=== PATIENT | female | born 1960 | race Caucasian/White ===

== ENCOUNTER → 2017-10-26 16:10 | Outpatient (CLI) | payer OTHER, SELFPAY | PROVIDERS: Visit Provider Nurse Practitioner Women's Health | DX: Z12.4 Encounter for screening for malignant neoplasm of cervix (principal) ==

== ENCOUNTER 2018-01-06 11:30 | Day surgery (SDC) | payer OTHER, SELFPAY ==
[2018-01-06] VITALS (7 sets, daily range): BP systolic 107–130; BP diastolic 61–71; PULSE 62–71; RESP 16; TEMP 36.4–36.7; O2SAT 96–100; BMI 21.6
[2018-01-06] MEDS: HYDROcodone Bitartrate/Apap 5/325 Tablet PO (14:48)
== END 2018-01-06 14:52 | disposition home or self-care (01) ==
LOC: SDC 11:31 → AC 11:32
PROVIDERS: Family Provider Family Medicine; PCP Family Medicine; Visit Provider Orthopaedic Surgery
PROC: (CPT 64721; principal; 2018-01-06 12:45)
DX: G56.01 Carpal tunnel syndrome, right upper limb (principal); G43.909 Migraine, unspecified, not intractable, without status migrainosus; E06.9 Thyroiditis, unspecified; Z79.899 Other long term (current) drug therapy
CPT/HCPCS: 64721; J7120

== ENCOUNTER → 2018-02-01 11:33 | Outpatient (CLI) | payer OTHER, SELFPAY | PROVIDERS: Family Provider Family Medicine; PCP Family Medicine; Visit Provider Family Medicine | DX: E03.9 Hypothyroidism, unspecified (principal); Z12.11 Encounter for screening for malignant neoplasm of colon | CPT/HCPCS: 82274 ==

== ENCOUNTER → 2018-06-03 11:24 | Outpatient (CLI) | payer OTHER, SELFPAY ==
[2018-06-03 12:04] LABS: Hemoglobin A1c 5.5 % (4.2-6.3)
[2018-06-03 12:13] LABS: Thyroid Stim Hormone (TSH) 2.72 uIU/mL (0.358-3.74)
== END ==
PROVIDERS: Family Provider Family Medicine; PCP Family Medicine; Visit Provider Family Medicine
DX: Z13.9 Encounter for screening, unspecified (principal)
CPT/HCPCS: 36415; 83036; 84443

== ENCOUNTER → 2018-06-17 12:32 | Outpatient (CLI) | payer OTHER, SELFPAY ==
--- NOTE | 2018-06-17 12:44 | RAD_ITS ---
STUDY: X-RAY - LEFT FOOT CLINICAL: Female, 57 years old. Arthritis. Pain TECHNIQUE: 3 view(s) of the foot. COMPARISON: None. FINDINGS: Normal talus, calcaneus, and tarsal bones. Normal visualized subtalar, talonavicular, calcaneocuboid, tarsal and tarsometatarsal articulations. Normal metatarsi. There is mild degenerative arthrosis of the metatarsophalangeal joint of the hallux . Normal tibial and fibular sesamoid bones. Normal interphalangeal joint of the great toe. Normal phalanges of the great toe. Normal second through fifth metatarsophalangeal joints. Normal interphalangeal joints and phalanges of the lesser toes. The soft tissue structures are unremarkable. There is no demonstrated fracture. RAD/Foot min 3 Views IMPRESSION: Mild spurring at the first MTP joint. Electronically Signed: Braydon Koenig MD at 13:18 EDT , Service support ,
== END ==
PROVIDERS: Family Provider Family Medicine; PCP Family Medicine; Visit Provider Family Medicine
DX: M19.072 Primary osteoarthritis, left ankle and foot (principal)
CPT/HCPCS: 73630

== ENCOUNTER → 2018-11-04 07:27 | Outpatient (CLI) | payer OTHER, SELFPAY ==
--- NOTE | 2018-11-03 17:28 | BI_ITS ---
MAMMOGRAPHY - BILATERAL SCREENING REASON FOR EXAM: Female, 58 years old. Routine annual screening examination. PERTINENT HISTORY: Non-contributory. TECHNIQUE: Digital bilateral breast keagan (3D mammographic acquisition) in the CC and MLO projections. 2-D mediolateral oblique (MLO) and craniocaudad (CC) views of both breasts were obtained. CAD: Full Field Digital Mammography with Computer Added Detection was performed. COMPARISON: Comparison is made with prior examination dated July 16, 2016 and March 13, 2010. FINDINGS: Breast Composition: The breasts are heterogeneously dense, which may obscure small masses. There are no dominant masses or suspicious calcifications. No other significant abnormalities are identified. There has been no significant change since the prior study. BI/SCREEN MAMM (CAD) W/KEAGAN BILAT IMPRESSION: Stable bilateral screening mammogram. Yearly follow-up mammogram recommended. (A) ASSESSMENT CATEGORY: BIRADS Category 1: Negative. A letter regarding these results will be sent to the patient by the facility within 30 days. Approximately 10% of breast cancers are not detected by mammography. A normal mammogram should not delay biopsy of a clinically suspicious abnormality. [id number] Electronically Signed: Flavio Ruiz MD at 10:14 EST , Service support ,
== END ==
PROVIDERS: Family Provider Family Medicine; PCP Family Medicine; Referring Provider Nurse Practitioner Women's Health; Visit Provider Nurse Practitioner Women's Health
DX: Z12.31 Encounter for screening mammogram for malignant neoplasm of breast (principal)
CPT/HCPCS: 77063; 77067

== ENCOUNTER → 2019-06-22 11:22 | Outpatient (CLI) | payer OTHER, SELFPAY ==
[2018-01-06 11:46] VITALS: BMI 21.6
[2019-06-22 12:09] LABS: Hemoglobin A1c 5.5 % (4.2-6.3)
== END ==
LOC: LABSPEC 11:27 → LAB 11:29
PROVIDERS: Family Provider Family Medicine; PCP Family Medicine; Referring Provider Family Medicine; Visit Provider Family Medicine
DX: Z13.1 Encounter for screening for diabetes mellitus (principal)
CPT/HCPCS: 83036

== ENCOUNTER → 2020-03-07 13:40 | Outpatient (CLI) | payer OTHER, SELFPAY ==
[2018-01-06 11:46] VITALS: BMI 21.6
[2019-09-15 09:45] VITALS: BMI 21.6
[2020-03-07 15:19] LABS: Free T3 2.5 pg/mL (2.18-3.98); Thyroid Stim Hormone (TSH) 1.54 uIU/mL (0.358-3.74)
== END ==
PROVIDERS: Family Provider Family Medicine; PCP Family Medicine; Referring Provider Family Medicine; Visit Provider Family Medicine
DX: E03.9 Hypothyroidism, unspecified (principal)
CPT/HCPCS: 36415; 84436; 84443; 84481

== ENCOUNTER → 2021-07-10 13:12 | Outpatient (CLI) | payer OTHER, SELFPAY ==
[2021-07-15 16:55] LABS: HPV APTIMA, High Risk Negative (Negative)
== END ==
PROVIDERS: Referring Provider Nurse Practitioner Women's Health; Visit Provider Nurse Practitioner Women's Health
DX: Z12.4 Encounter for screening for malignant neoplasm of cervix (principal)
CPT/HCPCS: 87624; 88175; G0145

== ENCOUNTER 2021-09-11 06:08 | Day surgery (SDC) | payer OTHER, SELFPAY ==
[2021-09-11] VITALS (7 sets, daily range): BP systolic 105–119; BP diastolic 62–75; PULSE 67–74; RESP 16–18; TEMP 36.1–36.8; O2SAT 99–100; BMI 22.4
[2021-09-11] MEDS: Lactated Ringers 1,000 ML 15 ML IV (06:46)
--- NOTE | 2021-09-11 07:10 | PCM.HP.BLA ---
History and Physical Date of Admission: 09/11/21 HISTORY OF PRESENT ILLNESS: This is a 61-year-old with past medical history of hypothyroidism, migraines who arrives here for screening colonoscopy. She is in a good state of health with no complaints of abdominal pain, nausea, vomiting or diarrhea. She also denies any bleeding per rectum. She has no personal history or family history of colorectal cancer. All other 16 review of systems are negative except as per in positive mentioned HPI PAST MEDICAL HISTORY, PAST SURGICAL HISTORY, SOCIAL HISTORY, CURRENT MEDICATIONS, ALLERGIES, REVIEW OF SYSTEMS: Documented and reviewed PHYSICAL EXAMINATION: VITAL SIGNS: Height 66 inches, Blood pressure 119/74, pulse 74, respirations 18, temperature 99. GENERAL: The patient is alert and oriented x3. No acute distress at rest. Breathing easily without respiratory distress. HEENT: Head, normocephalic, atraumatic. Eyes: PERRLA, EOMI, sclerae are anicteric, conjunctivae without injection. Ears: Auditory acuity grossly intact bilaterally. Nose: Bilateral patent nares without tenderness or drainage. Throat: Pharynx clear without erythema or exudate. Tongue and uvula midline. Buccal mucosa pink and moist. NECK: Supple, without adenopathy, JVD, carotid bruit, masses or tenderness. CHEST: Symmetrical, nontender to palpation. AP diameter within normal limits. HEART: Regular rate and rhythm without murmurs, rubs or gallops appreciated at this time. LUNGS: Clear to auscultation bilaterally without wheezes, rales or rhonchi. ABDOMEN: Soft, nondistended. Normoactive bowel sounds x4 without tenderness. NEUROLOGIC: Cranial nerves II through XII grossly intact without any focal sensorimotor deficits noted. IMPRESSION: Screening colonoscopy PLAN: Patient was explained alternatives, risk, benefits including not withstanding bleeding, infection, sepsis, perforation, need for emergent surgery . She will have an ASA 1.
--- NOTE | 2021-09-11 07:47 | OP.COLON_ITS ---
Patient Name: Vibha Gloria Procedure Date: 09/11/2021 7:12 AM Date of : 1960 Age: 61 Procedure: Colonoscopy Indications: Screening for colorectal malignant neoplasm Providers: Eric Steiner DO Medicines: See the Anesthesia note for documentation of the administered medications Patient Profile: This is a 61 year old female. Refer to note in patient chart for documentation of history and physical. Last Colonoscopy: 10 years ago. Complications: No immediate complications. Procedure: Pre-Anesthesia Assessment: - Prior to the procedure, a History and Physical was performed, and patient medications and allergies were reviewed. The risks and benefits of the procedure and the sedation options and risks were discussed with the patient. All questions were answered and informed consent was obtained. Patient identification and proposed procedure were verified by the physician in the pre-procedure area. Mental Status Examination: alert and oriented. Airway Examination: normal oropharyngeal airway and neck mobility. Respiratory Examination: clear to auscultation. CV Examination: normal. Prophylactic Antibiotics: The patient does not require prophylactic antibiotics. Prior Anticoagulants: The patient has taken no previous anticoagulant or antiplatelet agents. ASA Grade Assessment: II - A patient with mild systemic disease. After reviewing the risks and benefits, the patient was deemed in satisfactory condition to undergo the procedure. The anesthesia plan was to use moderate sedation / analgesia (conscious sedation). Immediately prior to administration of medications, the patient was re-assessed for adequacy to receive sedatives. The heart rate, respiratory rate, oxygen saturations, blood pressure, adequacy of pulmonary ventilation, and response to care were monitored throughout the procedure. The physical status of the patient was re-assessed after the procedure. After I obtained informed consent, the scope was passed under direct vision. Throughout the procedure, the patient's blood pressure, pulse, and oxygen saturations were monitored continuously. The Colonoscope was introduced through the anus and advanced to the cecum, identified by appendiceal orifice and ileocecal valve. The colonoscopy was performed without difficulty. The patient tolerated the procedure well. The quality of the bowel preparation was good. Moderate Sedation: Moderate (conscious) sedation was personally administered by an anesthesia professional. The following parameters were monitored: oxygen saturation, heart rate, blood pressure, and response to care. Total physician intraservice time was 15 minutes. Scope In: 7:23:37 AM Scope Withdrawal Time 0 hours 10 minutes 12 seconds Scope Out: 7:39:00 AM Total Procedure Duration Time 0 hours 15 minutes 23 seconds Findings: The perianal and digital rectal examinations were normal. Two small-mouthed diverticula were found in the sigmoid colon. No additional abnormalities were found on retroflexion. Impression: - Diverticulosis in the sigmoid colon. - No specimens collected. Recommendation: - Discharge patient to home. - Resume previous diet. - Return to my office PRN. - Repeat colonoscopy in 10 years for screening purposes. - Continue present medications. Procedure Code(s): --- Professional --- 43695, Colonoscopy, flexible; diagnostic, including collection of specimen(s) by brushing or washing, when performed (separate procedure) CPT copyright 2017 [employer]. All rights reserved. The codes documented in this report are preliminary and upon worm picker review may be revised to meet current compliance requirements. Eric Steiner DO 09/11/2021 7:47:27 AM This report has been signed electronically. Number of Addenda: 1 Note Initiated On: 09/11/2021 7:12 AM Addendum Number: 1 Addendum Date: 06/03/2022 7:17:58 AM MAC was used instead of moderate sedation for the patient. Eric Steiner DO 06/03/2022 7:18:02 AM This report has been signed electronically.
== END 2021-09-11 08:42 ==
LOC: EN 06:10 → AC 06:11
PROVIDERS: PCP Family Medicine; Referring Provider Family Medicine; Visit Provider Internal Medicine Gastroenterology
PROC: 0DJD8ZZ Inspection of Lower Intestinal Tract, Via Natural or Artificial Opening Endoscopic (ICD-10-PCS; CPT 45378; principal; 2021-09-11 07:10)
DX: Z12.11 Encounter for screening for malignant neoplasm of colon (principal); K57.30 Diverticulosis of large intestine without perforation or abscess without bleeding; E03.9 Hypothyroidism, unspecified; Z79.899 Other long term (current) drug therapy
CPT/HCPCS: 45378; J2405

== ENCOUNTER 2022-03-26 14:47 | Outpatient (CLI) | payer OTHER, SELFPAY ==
--- NOTE | 2022-03-26 14:55 | RAD_ITS ---
STUDY: X-RAY - LUMBAR SPINE REASON FOR EXAM: Female, 61 years old. LEFT SIDED PARASPINAL PAIN TECHNIQUE: 5 view(s) of the lumbar spine were obtained. COMPARISON: December 30, 2015 lumbar spine x-ray FINDINGS: There is an exaggerated lumbar lordosis. There is no substantial scoliosis. There is a normal alignment of the vertebrae. There is multilevel osteophytosis. There is a shortened appearance of the pedicle at L5 and narrowing at L5-S1 of the neural foramen. Normal disc space heights. The soft tissue structures are unremarkable. RAD/L/S Spine Min 4 Views IMPRESSION: Degenerative change of the lumbar spine. Relatively stable when compared to prior study. Electronically Signed: Linnea Echols MD at 7:03 EDT ,
== END 2022-03-26 23:59 | disposition home or self-care (01) ==
LOC: RAD 14:49
PROVIDERS: PCP Family Medicine; Visit Provider Family Medicine
DX: M54.9 Dorsalgia, unspecified (principal)
CPT/HCPCS: 72110

== ENCOUNTER → 2022-06-25 | Outpatient (CLI) | payer OTHER, SELFPAY ==
[2022-06-25 15:18] LABS: T4 Free Direct 0.86 ng/dL (0.76-1.46)
== END | disposition home or self-care (01) ==
LOC: LABSPEC 14:52
PROVIDERS: PCP Family Medicine; Referring Provider Family Medicine; Visit Provider Family Medicine
DX: E03.2 Hypothyroidism due to medicaments and other exogenous substances (principal)
CPT/HCPCS: 84439; 84443

== ENCOUNTER → 2022-09-01 | Outpatient (CLI) | payer OTHER, SELFPAY | END | disposition home or self-care (01) | LOC: LAB 15:17 | PROVIDERS: PCP Family Medicine; Referring Provider Family Medicine; Visit Provider Family Medicine | DX: E03.2 Hypothyroidism due to medicaments and other exogenous substances (principal) | CPT/HCPCS: 36415; 84443 ==

== ENCOUNTER → 2022-11-23 | Outpatient (CLI) | payer OTHER, SELFPAY ==
[2022-11-23 16:21] LABS: Thyroid Stim Hormone (TSH) 3.45 uIU/mL (0.358-3.74)
== END | disposition home or self-care (01) ==
LOC: LAB 14:43
PROVIDERS: PCP Family Medicine; Referring Provider Family Medicine; Visit Provider Family Medicine
DX: E03.2 Hypothyroidism due to medicaments and other exogenous substances (principal)
CPT/HCPCS: 36415; 84443

== ENCOUNTER → 2023-05-18 | Outpatient (CLI) | payer OTHER, SELFPAY ==
--- NOTE | 2023-05-18 14:54 | BI_ITS ---
MAMMOGRAPHY - BILATERAL SCREENING REASON FOR EXAM: Female, 62 years old. Routine annual screening examination. PERTINENT HISTORY: Non-contributory. TECHNIQUE: Digital bilateral breast keagan (3D mammographic acquisition) in the CC and MLO projections. 2-D mediolateral oblique (MLO) and craniocaudad (CC) views of both breasts were obtained. CAD: Full Field Digital Mammography with Computer Added Detection was performed. COMPARISON: Screening mammogram from 11/03/2018, 07/16/2016. FINDINGS: Breast Composition: The breasts are heterogeneously dense, which may obscure small masses. There are no dominant masses or suspicious calcifications. No other significant abnormalities are identified. There has been no significant change since the prior study. BI/SCRN MAMM (CAD)W/KEAGAN BILAT IMPRESSION: Negative screening mammogram. Stable examination since 11/03/2018. Yearly followup mammogram recommended. (A) ASSESSMENT CATEGORY: BIRADS Category 1: Negative. A letter regarding these results will be sent to the patient by the facility within 30 days. Approximately 10% of breast cancers are not detected by mammography. A normal mammogram should not delay biopsy of a clinically suspicious abnormality. Electronically Signed: Dhruv Suazo DO at 9:36 EDT ,
== END | disposition home or self-care (01) ==
LOC: OPBI 14:52
PROVIDERS: PCP Family Medicine; Referring Provider Family Medicine; Visit Provider Family Medicine
DX: Z12.31 Encounter for screening mammogram for malignant neoplasm of breast (principal)
CPT/HCPCS: 77063; 77067

== ENCOUNTER → 2023-06-29 | Outpatient (CLI) | payer OTHER, SELFPAY ==
[2023-06-29 16:49] LABS: Thyroid Stim Hormone (TSH) 4.58 uIU/mL (0.358-3.74)
== END | disposition home or self-care (01) ==
LOC: LAB 15:32
PROVIDERS: PCP Family Medicine; Referring Provider Family Medicine; Visit Provider Family Medicine
DX: E03.2 Hypothyroidism due to medicaments and other exogenous substances (principal)
CPT/HCPCS: 84443

== ENCOUNTER → 2024-06-28 | Outpatient (CLI) | payer OTHER, SELFPAY | END | disposition home or self-care (01) | PROVIDERS: PCP Family Medicine; Referring Provider Family Medicine; Visit Provider Family Medicine | DX: E03.2 Hypothyroidism due to medicaments and other exogenous substances (principal) | CPT/HCPCS: 84443 ==

== ENCOUNTER → 2024-07-25 | Outpatient (CLI) | payer OTHER, SELFPAY ==
--- NOTE | 2024-07-25 08:39 | BI_ITS ---
MAMMOGRAPHY - BILATERAL SCREENING REASON FOR EXAM: Female, 64 years old. Routine annual screening examination. PERTINENT HISTORY: Non-contributory. TECHNIQUE: Digital bilateral breast keagan (3D mammographic acquisition) in the CC and MLO projections. 2-D mediolateral oblique (MLO) and craniocaudad (CC) views of both breasts were obtained. CAD: Full Field Digital Mammography with Computer Added Detection was performed. COMPARISON: Comparison is made with prior study May 18, 2023 and November 03, 2018. FINDINGS: Breast Composition: The breasts are heterogeneously dense, which may obscure small masses. There are no dominant masses or suspicious calcifications. No other significant abnormalities are identified. There has been no significant change since the prior study. BI/SCRN MAMM (CAD)W/KEAGAN BILAT IMPRESSION: Stable bilateral screening mammogram. Yearly follow-up mammogram recommended. (A) ASSESSMENT CATEGORY: BIRADS Category 1: Negative. A letter regarding these results will be sent to the patient by the facility within 30 days. Approximately 10% of breast cancers are not detected by mammography. A normal mammogram should not delay biopsy of a clinically suspicious abnormality. [id number] Electronically Signed: Flavio Ruiz MD at 11:32 EDT ,
--- OUTSIDE RECORDS SUMMARY | 2024-07-25 09:11 | XMS RPT_ITS | CCD ---
Author Organization [facility] Care Team Providers Care Book Sewer Name Role Phone Dianna KAPADIA MD, Frank A Primary Care Provider Leatha vailable Tanya Miranda Primary Care Provider [phone] Tanya Miranda MD Primary Care Provider TANYA MIRANDA Primary Care Unavailable TANYA MIRANDA Primary Care Unavailable REN BUSTAMANTE III Primary Care Unavailable Medications Current Medications Medication Drug Class(es) Dates Sig (Normalized) Sig (Original) cyclobenzaprine hydrochloride 10 mg oral tablet (2 sources) Muscle Relaxant Start: 03-28-2022 End: 04-07-2022 take 5 mg by mouth every twelve hours as needed cyclobenzaprine (FLEXERIL) 10 mg tablet Take 0.5 tablets by mouth twice daily as needed for muscle spasm for up to 10 days. 5 tablet 0 03/28/2022 04/07/2022 Active Comment on above: Take 0.5 tablets by mouth twice daily as needed for muscle spasm for up to 10 days. nitrofurantoin, macrocrystals 25 mg / nitrofurantoin, monohydrate 75 mg oral capsule (1 source) Nitrofuran Antibacterial Start: 11-09-2022 End: 11-16-2022 take 1 capsule by mouth twice daily nitrofurantoin monohydrate and macrocrystal (MACROBID) 100 mg capsule Indications: Urinary frequency Take 1 capsule by mouth twice daily for 7 days. 14 capsule 0 11/09/2022 11/16/2022 Active Comment on above: Take [address] [facility] twice daily for 7 days. Completed/Discontinued Medications Medication Drug Class(es) Dates Sig (Normalized) Sig (Original) acetaminophen 325 mg / guaiFENesin 200 mg / phenylephrine hydrochloride 5 mg oral tablet (3 sources) alpha-1 Adrenergic Agonist Start: 08-20-2017 Phenylephrine-Acetam inophen-GG (TYLENOL COLD HEAD CONGEST SEVR) 5-325-200 mg tab Indications: Viral URI with cough Take 1 Dose by mouth as directed. 30 tablet 0 08/20/2017 Active Comment on above: Take 1 Dose by mouth as directed. levothyroxine sodium 0.075 mg oral tablet (6 sources) l-Thyroxine Start: 05-30-2020 levothyroxine (SYNTHROID) 75 mcg tablet Indications: Postsurgical hypothyroidism 75 mcg every Wed-Wed-Wed. Take on empty stomach. 36 tablet 3 05/30/2020 Active Start: 05-30-2020 take 1 tablet by adri th once daily levothyroxine (SYNTHROID) 88 mcg tablet Indications: Postsurgical hypothyroidism TAKE 1 TABLET BY MOUTH ONCE DAILY ON WEDNESDAY, WEDNESDAY, WEDNESDAY AND WEDNESDAY 54 tablet 3 05/30/2020 Active Comment on above: 75 mcg every Wed-Wed -Wed. Take on empty stomach. TAKE 1 TABLET BY ADRI TH ONCE DAILY ON WEDNESDAY, WEDNESDAY, WEDNESDAY AND WEDNESDAY OMEGA3,5,6,7,9 NO.1/SALMON OIL (COMPLETE OMEGA ORAL) (3 sources) OMEGA3,5,6,7,9 NO.1/SALMON OIL (COMPLETE OMEGA ORAL) Take by mouth. 0 Active Comment on above: Take by mouth. SUMAtriptan 100 mg oral tablet (3 sources) Serotonin-1b and Serotonin-1d Receptor Agonist Start: 12-03-2020 SUMAtriptan (IMITREX) 100 mg tablet Indications: Migraine without status migrainosus, not intractable, unspecified migraine type Take 1 tablet by mouth as needed for Migraine Headache (see administra tion instructions). 27 tablet 3 12/03/2020 Active Comment on above: Take 1 tablet by adri th as needed for Migraine Headache (see administra tion instructions). Problems Active Problems Problem Classification Problem Date Documented Date Episodic/Chronic Complications of surgical procedures or medical care (3 sources) Postoperative hypothyroidism; Translations: [Postprocedural hypothyroidism] Onset: 06-26-2010 12-25-2010 Chronic Genitourinary symptoms and ill-defined conditions (2 sources) Increased frequency of urination; Translations: [Frequency of micturition] Episodic Headache; including migraine (3 sources) Migraine; Translations: [Migraine, unspecified, not intractable, without status migrainosus] Onset: 06-04-2016 06-04-2016 Chronic Nutritional deficiencies (3 sources) Vitamin D deficiency; Translations: [Vitamin D deficiency, unspecified] Onset: 10-21-2015 10-21-2015 Chronic Osteoarthritis (6 sources) Arthritis of joint of toe; Translations: [Primary osteoarthritis, unspecified ankle and foot] Onset: 06-16-2018 06-16-2018 Chronic Other ear and sense organ disorders (1 source) Impacted cerumen in left ear; Translations: [Impacted cerumen, left ear] Episodic Spondylosis; intervertebral disc disorders; other back problems (1 source) Spasm of back muscles; Translations: [Muscle spasm of back] Episodic Past or Other Problems Problem Classification Problem Date Documented Date Episodic/Chronic Cancer of cervix (3 sources) Low grade squamous intraepithelial lesion on cervical Papanicolaou smear; Translations: [Low grade squamous intraepithelial lesion on cytologic smear of cervix (LGSIL)] Onset: 11-22-2008 11-22-2008 Episodic Other female genital disorders (3 sources) Cervical intraepithelial neoplasia grade 1; Translations: [Mild cervical dysplasia] Onset: 12-24-2008 12-24-2008 Episodic Sexually transmitted infections (not HIV or hepatitis) (3 sources) Human papillomavirus deoxyribonucleic acid test positive, high risk on cervical specimen; Translations: [Cervical high risk human papillomavirus (HPV) DNA test positive] Onset: 12-25-2009 12-25-2009 Episodic Results Test Name Value Interpretation Reference Range Facil ity Bacteria Ur Culton 3 Bacteria identified Cx Nom (U) ORGANISM ID: 1 <10,000 CFU/ml Lactose positive gram negative bacilli Insignificant colony count. No further workup. Normal [facility] Comment on above: Performed By: #### 6 30-4 #### [facility] CLIA [id number] [address] [place] [address] [place] CNOVon 11-09-2022 CNOV Office Visit ([facility] ) VICTORINA GLORIA ([id number]) 1960 F Date Time Provider Department 11/09/22 7:30 PM MARLEEN LEON [facility] During your visit today, we recorded the following information about you: Temperature Pulse Respiration Blood pressure 96.9 degrees 80/minute 16/minute 126/74 Weight 68.5 kg Marleen Leon APRN.CNP 11/09/2022 7:43 PM Signed ASSESSMENT/PLAN: 1. Urinary frequency - ICD9: 788.41, ICD10: R35.0 (primary diagnosis) acute - UA positive for neda esterase, hematuria, and proteinuria - Send urine for culture - Begin treatment with Macrobid 100 mg BID for 7 days - Patient education for prevention given - UA DIP, URINE (POC) - URINE CULTURE - NITROFURANTOIN MONOHYDRATE AND MACROCRYSTAL 100 MG ORAL CAP 2. Gross hematuria - ICD9: 599.71, ICD10: R31.0 - UA DIP, URINE (POC) - URINE CULTURE - Follow-up with your PCP in 3-5 days if symptoms have not improved or sooner if symptoms worsen - Discussed red flags and need for immediate medical evaluation if any occur. - Discussed supportive care treatment with fluids, rest and analgesia. - Discussed expected course of illness Marleen Leon APRN.CNP [facility] PATIENT INFO BLADDER INFECTION OVERVIEW Bladder infections are one of the most common infections, causing symptoms of burning with urination and needing to urinate frequently. A bladder infection is a type of urinary tract infection (UTI). Bladder infections are more common is women than men. Most women have an uncomplicated bladder infection that is easily treated with a short course of antibiotics. In men, bladder infections may also affect the prostate gland, and a longer course of treatment may be needed. BLADDER INFECTION CAUSES The urinary tract includes the kidneys (which filter urine), ureters (the tube that carries urine from the kidneys to the bladder), the bladder (which stores urine), and urethra (the tube that carries urine out of the bladder). Bacteria do not normally live in these areas. However, bacteria normally live close to the urethra in women and men who are not circumcised. Bladder infections occur when bacteria travel up the urethra into the bladder. Factors that increase the risk of developing a bladder infection include: Vaginal sex Use of spermicides History of past bladder infections Diabetes In men, not being circumcised or having anal sex increase the risk of bladder infections. BLADDER INFECTION SYMPTOMS The typical symptoms of a bladder infection include: Pain or burning when urinating Frequent need to urinate Urgent need to urinate Blood in the urine Fever, back pain, nausea, or vomiting are not common symptoms of a bladder infection, but can occur in people with a kidney infection (pyelonephritis). If you have these symptoms, you should call your doctor or nurse immediately. Is it a bladder infection or something else? -- Burning with urination can also occur in people with vaginitis (eg, yeast infection) or urethritis (inflammation of the urethra). For this reason, it is important to call your healthcare provider before assuming you have a bladder infection. BLADDER INFECTION DIAGNOSIS Simple bladder infections are usually diagnosed based upon your symptoms alone. However, most patients, especially those who have bladder infection symptoms for the first time, should see a healthcare provider for urine testing. Urine culture -- A urine culture is a test that uses a sample of urine to try and grow bacteria in a laboratory. It usually requires about 48 hours to get results. However, a urine culture is not always required to diagnose a bladder infection. Urine culture is often recommended if: You have never had a bladder infection before You have symptoms that are not typical for bladder infection You have had resistant bladder infections before You have frequent bladder infections You do not begin to feel better within 24 to 48 hours after starting antibiotics You are BLADDER INFECTION TREATMENT Bladder infection -- In young, healthy adolescents and adults with a bladder infection, the usual treatment includes a three to seven day course of antibiotics. The typical drugs chosen are: trimethoprim-sulfamet hoxazole (Bactrim?), nitrofurantoin (Macrobid?), ciprofloxacin (Cipro?) or levofloxacin (Levaquin?). In men, the infection may involve your prostate gland and treatment is usually given for at least 7 days. Your symptoms should begin to resolve within one day after starting treatment. It is important to take the full course of antibiotics to completely eliminate the infection. If your symptoms persist for more than two or three days after starting treatment, call your healthcare provider. If needed, you can take a prescription medication that numbs the bladder and urethra (phen (more content not included)... Normal [facility] UA DIP, URINE (POC)on 2022 BILIRUBIN UA (POCT) Negative Negative [facility] CLARITY UA (POCT) Slightly Cloudy Cl [facility] COLOR UA (POCT) Yellow [facility] GLUCOSE UA (POCT) Negative Negative mg/dL [facility] HEMOGLOBIN/BLOOD UA (POCT) Large Abnormal Negative [facility] KETONE UA (POCT) Negative Negative [facility] LEUKOCYTES UA (POCT) Moderate Abnormal Negative [facility] NITRITE UA (POCT) Negative [facility] PH UA (POCT) 7.0 4.5 - 8.0 [facility] Protein Ql (U) 100 mg/dL Abnormal Negative mg/dL [facility] SPECIFIC GRAVITY UA (POCT) 1.020 1.005 - 1.030 [facility] UROBILINOGEN UA (POCT) 0.2 E.U./dL Normal E.U./dL [facility] CNOVon 08-27-2022 CNOV Office Visit ([facility]WSTR ) VICTORINA GLORIA ([id number]) 1960 F Date Time Provider Department 08/27/22 2:15 PM [facility] During your visit today, we recorded the following information about you: Temperature Pulse Respiration Blood pressure 97.8 degrees 81/minute 16/minute 128/80 Weight 67.2 kg Mary Rojo APRN.ELECTRICAL CONTINUITY TESTER 08/27/2022 2:42 PM Signed CC: Patient presents with: Ear Problem: Left ear feels plugged HPI: Victorina Gloria is a 62 year old female who presents to the office with complaint of ear symptoms for a few days. Symptoms are staying the same. Associated symptoms includes ear pressure . Denies headache, body aches, fever, nausea, vomiting , and diarrhea. Treatments tried include nothing so far. with no relief of symptoms. Sick contacts: unknown. History of asthma, frequent episodes of bronchitis, chronic bronchitis, bronchiectasis or COPD: No Smoker: No Seasonal/environmenta l allergies: No The ROS is otherwise negative. The patient's pmh, medications, allergies, and past visits are reviewed. PHYSICAL EXAM: BP 128/80 Pulse 81 Temp 36.6 ?C (97.8 ?F) (Tympanic) Resp 16 Wt 67.2 kg (148 lb 3.2 oz) LMP 10/14/2009 SpO2 99% BMI 23.56 kg/m? General appearance: alert, cooperative, pleasant, in no acute distress Head: Normocephalic Eyes: EOM's intact, conjunctiva pink and moist, no icterus, sclera white, non-injected Ears: Right ear: External ear/canal- partial impaction, TM - clear with good landmarks, what is visible. 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 Variants of migraine, not elsewhere classified, without mention of intractable migraine without mention of status migrainosus with menses Varicose veins of other sites PAST SURGICAL HISTORY Procedure Laterality Date CAUTERY CERVIX CRYOCAUTERY INITIAL/REPEAT 1987 done twice COLPOSCOPY CERVIX UPPER/ADJACENT VAGINA 1997,2006,2009 X 2; 2010 CONIZATION CERVIX W/WO [facility] RPR ELTRD EXC 11/22/2008 LEEP-Cervix LEFT WRIST CARPAL TUNNEL ONLY 06/11/2016 [facility] PAST SURGICAL HISTORY OF laser surgery in 1988 on Cx PAST SURGICAL HISTORY OF 1989 laser of biopsy in her 's THYROIDECTOMY TOTAL/COMPLETE 08/08/2010 benign thyroid nodules ALLERGIES Patient has no known allergies. MEDICATIONS SUMAtriptan (IMITREX) 100 mg tablet Take 1 tablet by mouth as needed for Migraine Headache (see administra tion instructions). levothyroxine (SYNTHROID) 88 mcg tablet TAKE 1 TABLET BY MOUTH ONCE DAILY ON WEDNESDAY, WEDNESDAY, WEDNESDAY AND WEDNESDAY OMEGA3,5,6,7,9 NO.1/SALMON OIL (COMPLETE OMEGA ORAL) Take by mouth. levothyroxine (SYNTHROID) 75 mcg tablet 75 mcg every Wed-Wed-Wed. Take on empty stomach. (Patient not taking: Reported on 08/27/2022) Phenylephrine-Acetami nophen-GG (TYLENOL COLD HEAD CONGEST SEVR) 5-325-200 mg tab Take 1 Dose by mouth as directed. (Patient not taking: Reported on 06/16/2018 ) FAMILY HISTORY Problem Relation Age of Onset None Mother None Father Diabetes Maternal Grandmother in 60's from [place] None Brother Coronary Artery Disease Brother [place] age 43 other (suicide) Brother 24 Social History Tobacco Use Smoking status: Never Smokeless tobacco: Never Substance Use Topics Alcohol use: Yes Comment: occasionally 6 per year Drug use: No ASSESSMENT/PLAN: 1. Impacted cerumen of left ear - ICD9: 380.4, ICD10: H61.22 - REMOVAL OF IMPACTED CERUMEN - INSTRUMENTATION Ears were flushed successfully both tympanic membrane brains are visible and within normal limits. Potential red flag symptoms discussed with the patient. Reviewed appropriate action plan to take if red flag symptoms occur. Patient agreeable to treatment plan. Mary Rojo APRN.LOI Benavides LPN 08/27/2022 2:46 PM Signed Ambulatory Ear Lavage Pre-treatment: Warm water Treatment: Both ears Equipment and Irrigation solution and Volume used: Single use syringe with single use irrigation tip Water Return flow appearance: Brown Patient tolerated procedure: yes Post-treatment: Post Irrigation Post-treatment: Ear Canal/Tympanic membrane assessed by HENRIQUE Rojo. Daisha Benavides LPN Allergies As of Date: 08/27/2022 (No Known Allergies) Date Reviewed: 08/27/2022 Reviewed by: Eri Herrera LPN - Fully Assessed Reason for Visit: Ear Problem [38] Cmt: Left ear feels plugged Primary Visit Diagnosis:Impacted cerumen of left ear [H61.22] Order(s): REMOVAL OF IMPACTED CERUMEN - INSTRUMENTATION [6921 (more content not included)... Normal [facility] CNOVon 03-28-2022 CNOV Office Visit ([facility] ) VICTORINA GLORIA ([id number]) 1960 F Date Time Provider Department 03/28/22 2:30 PM [facility] During your visit today, we recorded the following information about you: Temperature Pulse Respiration Blood pressure 97.8 degrees 85/minute 21/minute 132/68 Weight 65.3 kg Mary Rojo APRN.ELECTRICAL CONTINUITY TESTER 03/28/2022 2:38 PM Signed Subjective Patient came in with complaints of back spasms for about 3.5 weeks. Did have a week in there where she thought it was getting better. Said she gets them and usually they last a day or so. This time has been different. Did not have a mechanical injury that she knows of. denies any radiation of numbnenss of tingling. Denies difficulty urinating. denies any other symptoms. Spasm is on the left middle back. Patient ddi see her dr initially and had xrays done. Back Pain Review of Systems Constitutional: Negative. Musculoskeletal: Positive for back pain. Skin: Negative. Objective Physical Exam Constitutional: Appearance: Normal appearance. Pulmonary: Effort: Pulmonary effort is normal. Musculoskeletal: Arms: Comments: spasm is in this area. patient said she is a little tender in that area when palpated as well. Neurological: Mental Status: She is alert. PAST MEDICAL HISTORY Diagnosis Date - Abnormal Papanicolaou smear of vagina and vaginal HPV resultsof lgsil - Carpal tunnel syndrome, bilateral 03/05/2016 - Grave's disease 08/08/2010 S/P thyroidectomy, now on synthroid - Migraine - Mild dysplasia of cervix Laser treatment in 1989 Exact degree uncertain - Spondylosis of lumbar region without myelopathy or radiculopathy 01/02/2016 - Variants of migraine, not elsewhere classified, without mention of intractable migraine without mention of status migrainosus with menses - Varicose veins of other sites PAST SURGICAL HISTORY Procedure Laterality Date - CAUTERY CERVIX CRYOCAUTERY INITIAL/REPEAT 1987 done twice - COLPOSCOPY CERVIX UPPER/ADJACENT VAGINA 1997,2006,2009 X 2; 2010 - CONIZATION CERVIX W/WO [facility] RPR ELTRD EXC 11/22/2008 LEEP-Cervix - LEFT WRIST CARPAL TUNNEL ONLY 06/11/2016 [facility] - PAST SURGICAL HISTORY OF laser surgery in 1988 on Cx - PAST SURGICAL HISTORY OF 1989 laser of biopsy in her 20's - THYROIDECTOMY TOTAL/COMPLETE 08/08/2010 benign thyroid nodules ALLERGIES Patient has no known allergies. MEDICATIONS SUMAtriptan (IMITREX) 100 mg tablet Take 1 tablet by mouth as needed for Migraine Headache (see administra tion instructions). levothyroxine (SYNTHROID) 75 mcg tablet 75 mcg every Wed-Wed-Wed. Take on empty stomach. levothyroxine (SYNTHROID) 88 mcg tablet TAKE 1 TABLET BY MOUTH ONCE DAILY ON WEDNESDAY, WEDNESDAY, WEDNESDAY AND WEDNESDAY OMEGA3,5,6,7,9 NO.1/SALMON OIL (COMPLETE OMEGA ORAL) Take by mouth. cyclobenzaprine (FLEXERIL) 10 mg tablet Take 0.5 tablets by mouth twice daily as needed for muscle spasm for up to 10 days. Phenylephrine-Acetami nophen-GG (TYLENOL COLD HEAD CONGEST SEVR) 5-325-200 mg tab Take 1 Dose by mouth as directed. FAMILY HISTORY Problem Relation Age of Onset - None Mother - None Father - Diabetes Maternal Grandmother in 60's from [place] - None Brother - Coronary Artery Disease Brother [place] age 43 - other (suicide) Brother 24 Social History Tobacco Use - Smoking status: Never Smoker - Smokeless tobacco: Never Used Substance Use Topics - Alcohol use: Yes Comment: occasionally 6 per year - Drug use: No ASSESSMENT/PLAN: 1. Back spasm - ICD9: 724.8, ICD10: M62.830 Low dose flexeril prescribed. Educated about medication and drowsiness side effect. patient will follow up if symptoms continue. Patient was okay with this care plan. Mary Rojo APRN.LOI Rojo APRN.LOI 03/28/2022 2:40 PM Signed Addended by: MARY ROJO on: 03/28/2022 02:40 PM Modules accepted: Orders Referring Provider: SELF [200] Allergies As of Date: 03/28/2022 (No Known Allergies) Date Reviewed: 03/28/2022 Reviewed by: Eulalia Galeana MA - Fully Assessed Reason for Visit: Back Pain [12] Cmt: back spasms x 3.5 weeks Primary Visit Diagnosis:Back spasm [M62.830] Order(s):cyclobenzapr ine (FLEXERIL) 10 mg tabletTake 0.5 tablets by mouth twice daily as needed for muscle spasm for up to 10 days.Disp: 5 tabletRfl: 0 Prescriptions as of 03/28/2022 - cyclobenzaprine (FLEXERIL) 10 mg tablet Take 0.5 tablets by mouth twice daily as needed for muscle spasm for up to 10 days. - SUMAtriptan (IMITREX) 100 mg tablet Take 1 tablet by mouth as needed for Migraine Headache (see administra tion instructions). - levothyroxine (SYNTHROID) 75 mcg tablet 75 mcg every Wed-Wed-Wed. Take on empty stomach. - levothyroxine (SYNTHROID) 88 mcg tablet TAKE 1 TABLET BY MOUTH ONCE DAILY ON WEDNESDAY, WEDNESDAY, WEDNESDAY AND WEDNESDAY - Phenylephrine-Acetami nophen-GG (TYLENOL (more content not included)... Normal [facility] Vital Signs Date Time Vital Sign Value Performing Clinician Delmis garrison 11-09-2022 19:14-0500 Body temperature 96.91 [degF] Marleen Leon APRN.[facility] Work Phone: [facility] 11-09-2022 19:14-0500 Body weight 68.49 kg Marleen Leon APRN.[facility] [facility] Work Phone: [facility] 11-09-2022 19:14-0500 Diastolic blood pressure 74 mm[Hg] Marlene Leon APRN.[facility] Work Phone: [facility] 11-09-2022 19:14-0500 Heart rate 80 /min Marleen Leon APRN.[facility] Work Phone: [facility] 11-09-2022 19:14-0500 Respiratory rate 16 /min Marleen Leon APRN.[facility] Work Phone: [facility] 11-09-2022 19:14-0500 SaO2% (BldA) [Mass fraction] 98 % Marleen Leon APRN.ELECTRICAL CONTINUITY TESTER Work Phone: [facility] 11-09-2022 19:14-0500 Systolic blood pressure 126 mm[Hg] Marleen Maldonado-Thai ENERGY SCHEDULER.ELECTRICAL CONTINUITY TESTER Work Phone: [facility] 08-27-2022 14:19-0500 Body temperature 97.81 [degF] Mary Rojo APRN.ELECTRICAL CONTINUITY TESTER Work Phone: [facility] 08-27-2022 14:19-0500 Body weight 67.22 kg Mary Rojo APRN.ELECTRICAL CONTINUITY TESTER Work Phone: [facility] 08-27-2022 14:19-0500 Diastolic blood pressure 80 mm[Hg] Mary Rojo APRN.ELECTRICAL CONTINUITY TESTER Work Phone: [facility] 08-27-2022 14:19-0500 Heart rate 81 /min Mary Rojo APRN.ELECTRICAL CONTINUITY TESTER Work Phone: [facility] 08-27-2022 14:19-0500 Respiratory rate 16 /min Mary Rojo APRN.ELECTRICAL CONTINUITY TESTER Work Phone: [facility] 08-27-2022 14:19-0500 SaO2% (BldA) [Mass fraction] 99 % Mary Rojo APRN.ELECTRICAL CONTINUITY TESTER Work Phone: [facility] 08-27-2022 14:19-0500 Systolic blood pressure 128 mm[Hg] Mary Rojo APRN.ELECTRICAL CONTINUITY TESTER Work Phone: [facility] 03-28-2022 14:26-0400 Body temperature 97.81 [degF] Mary Rojo APRN.ELECTRICAL CONTINUITY TESTER Work Phone: [facility] 03-28-2022 14:26-0400 Body weight 65.32 kg Mary Rojo APRN.ELECTRICAL CONTINUITY TESTER Work Phone: [facility] 03-28-2022 14:26-0400 Diastolic blood pressure 68 mm[Hg] Mary Rojo APRN.ELECTRICAL CONTINUITY TESTER Work Phone: [facility] 03-28-2022 14:26-0400 Heart rate 85 /min Mary Rojo APRN.ELECTRICAL CONTINUITY TESTER Work Phone: [facility] 03-28-2022 14:26-0400 Respiratory rate 21 /min Mary Rojo APRN.ELECTRICAL CONTINUITY TESTER Work Phone: [facility] 03-28-2022 14:26-0400 SaO2% (BldA) [Mass fraction] 98 % Mary Rojo APRN.ELECTRICAL CONTINUITY TESTER Work Phone: [facility] 03-28-2022 14:26-0400 Systolic blood pressure 132 mm[Hg] Mary Rojo APRN.ELECTRICAL CONTINUITY TESTER Work Phone: [facility] Encounters Encounter Date Encounter Type Care Provider Facility Start: 11-09-2022 End: 11-09-2022 [facility] Start: 11-09-2022 End: 11-09-2022 Patient encounter procedure Marleen Leon APRN.ELECTRICAL CONTINUITY TESTER Work Phone: [facility] Comment on above: Urinary frequency (P rimary Dx); Gross hematuria Start: 08-27-2022 End: 08-27-2022 ambulatory TANYA Flor MOLATESHA Facility:[facility] Start: 08-27-2022 End: 08-27-2022 Patient encounter procedure Mary Rojo APRN.ELECTRICAL CONTINUITY TESTER Work Phone: [facility] Comment on above: Impacted cerumen of left ear (Primary Dx) Start: 03-28-2022 End: 03-28-2022 ambulatory REN A CEBUL III Facility:[facility] Start: 03-28-2022 End: 03-28-2022 Patient encounter procedure Mary Rojo APRN.ELECTRICAL CONTINUITY TESTER Work Phone: [facility] Comment on above: Back spasm (Primary Dx) Procedures Date Procedure Procedure Detail Performing Clinician Start: 11-09-2022 Urnls dip stick/tabl et rgnt auto w/o microscopy Marleen Leon APRN.ELECTRICAL CONTINUITY TESTER Work Phone: Start: 02-01-2018 Colonoscopy Mary Rojo APRN.ELECTRICAL CONTINUITY TESTER Work Phone: Start: 06-14-2017 Adult depression scr eening assessment Mary Rojo APRN.LOI Work Phone: Start: 07-16-2016 Mammography Mary Francis PERERA Work Phone: Plan of Treatment Date Care Activity Detail Author Start: 06-21-2024 LIPID SCREEN LIPID SCREEN [facility] Start: 10-26-2022 HPV TESTING HPV TESTING [facility] Start: 10-26-2022 PAP TESTING PAP TESTING [facility] Start: 09-27-2022 DEPRESSION ASSESSMENT DEPRESSION ASS ESSMENT [facility] Start: 06-22-2022 DIABETES SCREEN DIABETES SCREEN [facility] Start: 05-28-2022 Influenza vaccination INFLUENZA (#1) [facility] Start: 04-22-2022 Urine microalbumin profile DTAP,TDAP,TD (2 - Td or Tdap) [facility] Start: 09-27-2021 DEPRESSION ASSESSMENT DEPRESSION ASS ESSMENT [facility] Start: 05-30-2021 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 ELLE DISEASE VISIT ANNUAL PCP TEAM CHRONIC DISEASE VISIT [facility] Start: 04-11-2021 COVID-19 VACCINE (3 - Booster for Moderna series) COVID-19 VACCINE (3 - Booster for Moderna series) [facility] Start: 01-07-2021 COVID-19 VACCINE (3 - Booster for Moderna series) COVID-19 VACCINE (3 - Booster for Moderna series) [facility] Start: 02-01-2019 Colonoscopy COLONOSCOPY [facility] Start: 02-01-2019 COLORECTAL CANCER SCREENING COLORECTAL CANCER SCREENING [facility] Start: 06-14-2018 Adult depression screening assessment DEPRESSION SCREENING [facility] Start: 07-16-2017 Mammography MAMMOGRAM [facility] Start: 2011 SHINGRIX VACCINE (1 of 2) NICK GRIX VACCINE (1 of 2) [facility] Start: 2006 COLOGUARD (FIT-DNA) COLOGUARD (FIT-D NA) [facility] Start: [address] COLONOGRAPHY [facility] Start: 2006 FECAL OCCULT BLOOD FECAL OCCULT BLOO D [facility] Start: 2006 SIGMOIDOSCOPY SIGMOIDOSCOPY [facility] Start: 1979 HEPATITIS C SCREENING HEPATITIS C SC PRISCILLA [facility] Start: 1979 HIV SCREENING HIV SCREENING [facility] Bacteria identified in Urine by Culture URINE CULTURE Microbiology Routine Urinary frequency Gross hematuria 11/09/2022 7:48 PM EST [facility] Work Phone: Removal impacted cer umen instrumentation unilat REMOVAL OF IMPACTED CERUMEN - INSTRUMENTATION Procedures Routine Impacted cerumen of left ear Ordered: 08/27/2022 [facility] Work Phone: Comment on above: Ordered: 08/27/2022 Immunizations Immunization Date Immunization Notes Care Provider Rene su 04-22-2012 tetanus toxoid, redu cristiano diphtheria toxoid, and acellular pertussis vaccine, adsorbed Mary Francis ENERGY SCHEDULER.[employer] Work Phone: [facility] Work Phone: 12-24-1992 hepatitis B immune globulin Mary James ENERGY SCHEDULER.[employer] Work Phone: [facility] Work Phone: 06-26-1992 hepatitis B immune globulin Mary Francis ENERGY SCHEDULER.ELECTRICAL CONTINUITY TESTER Work Phone: [facility] Work Phone: 01-25-1992 hepatitis B immune globulin Mary Francis ENERGY SCHEDULER.[employer] Work Phone: [facility] Work Phone: Payers Date Payer Category Payer Private Health Insurance AENA A [facility] [id number] 2022-Present [phone] [address] [place] [address] PPO [id number] 2022 Private Health Insurance [id number] 2019 Unknown MMO MMO TPA [id number] 2019-Present [address] [place] [address] PPO [id number] 2019 Unknown MMO MMO TPA [id number] 2019-Present [address] [place] [address] PPO [id number] 2019 Unknown [id number] Social History Date Type Detail Facility Start: 06-28-2012 Tobacco smoking status NHIS Never smoked tobacco [facility] Start: 03-28-2022 End: 11-09-2022 Alcohol intake Current drinker of alcohol (finding) [facility] Start: 06-28-2012 History SDOH Alcohol Comment occasionally 6 per year [facility] Start: 1960 Sex Assigned At Not on file [facility] Start: 03-18-2022 End: 08-27-2022 Exposure to SARS-CoV-2 (event) Not sure [facility] Start: 06-28-2012 Tobacco use and exposure Smokeless tobacco non-user [facility] Work Phone: Clinical Notes 03-05-2016 to 11-09-2022 Marleen Leon APRN.LOI - 11/09/2022 7:43 PM ESTPatient Emmy Benavides LAUNDRY SUPERVISOR - 08/27/2022 2:46 PM Kimberley Rojo APRN.ELECTRICAL CONTINUITY TESTER - 08/27/2022 2:24 PM EST Note Date & Type Note Facility 11-09-2022 Note HNO ID: [id number] Author: Marleen Leon APRN.ELECTRICAL CONTINUITY TESTER Service: ? Author Type: Nurse Practitioner Type: Progress Notes Filed: 11/09/2022 8:23 PM Note Text: Subjective HPI Victorina Gloria is a 62 year old female who presents with 2 hours of urinary frequency and dysuria, seeing light blood in her urine. She has not had a fever. She took ibuprofen at home for her symptoms. She denies fever, back pain or abdominal pain. Review of Systems Constitutional: Negative for chills and fever. Respiratory: Negative. Cardiovascular: Negative. Gastrointestinal: Negative for nausea and vomiting. Genitourinary: Positive for dysuria, frequency and hematuria. Musculoskeletal: Negative for back pain. BP 126/74 Pulse 80 Temp 36.1 ?C (96.9 ?F) Resp 16 Wt 68.5 kg (151 lb) LMP 10/14/2009 SpO2 98% BMI 24.01 kg/m? 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/02/2016 Variants of migraine, not elsewhere classified, without mention of intractable migraine without mention of status migrainosus with menses Varicose veins of other sites PAST SURGICAL HISTORY Procedure Laterality Date CAUTERY CERVIX CRYOCAUTERY INITIAL/REPEAT 1987 done twice COLPOSCOPY CERVIX UPPER/ADJACENT VAGINA 1997,2006,2009 X 2; 2010 CONIZATION CERVIX W/WO DANDC RPR ELTRD EXC 11/22/2008 LEEP-Cervix LEFT WRIST CARPAL TUNNEL ONLY 06/11/2016 [facility] PAST SURGICAL HISTORY OF laser surgery in 1988 on Cx PAST SURGICAL HISTORY OF 1989 laser of biopsy in her 's THYROIDECTOMY TOTAL/COMPLETE 08/08/2010 benign thyroid nodules ALLERGIES Patient has no known allergies. MEDICATIONS SUMAtriptan (IMITREX) 100 mg tablet Take 1 tablet by mouth as needed for Migraine Headache (see administra tion instructions). levothyroxine (SYNTHROID) 88 mcg tablet TAKE 1 TABLET BY MOUTH ONCE DAILY ON WEDNESDAY, WEDNESDAY, WEDNESDAY AND WEDNESDAY OMEGA3,5,6,7,9 NO.1/SALMON OIL (COMPLETE OMEGA ORAL) Take by mouth. nitrofurantoin monohydrate and macrocrystal (MACROBID) 100 mg capsule Take 1 capsule by mouth twice daily for 7 days. levothyroxine (SYNTHROID) 75 mcg tablet 75 mcg every Wed-Wed-Wed. Take on empty stomach. (Patient not taking: Reported on 08/27/2022) Aathreqymwzca-Qjtuxjrsicmdw-OV (TYLENOL COLD HEAD CONGEST SEVR) 5-325-200 mg tab Take 1 Dose by mouth as directed. (Patient not taking: Reported on 06/16/2018 ) FAMILY HISTORY Problem Relation Age of Onset None Mother None Father Diabetes Maternal Grandmother in 60's from [place] None Brother Coronary Artery Disease Brother [place] age 43 other (suicide) Brother 24 Social History Tobacco Use Smoking status: Never Smokeless tobacco: Never Substance Use Topics Alcohol use: Yes Comment: occasionally 6 per year Drug use: No Objective Physical Exam Vitals and nursing note reviewed. Constitutional: General: She is not in acute distress. Appearance: Normal appearance. She is not toxic-appearing. Cardiovascular: Rate and Rhythm: Normal rate and regular rhythm. Heart sounds: Normal heart sounds. Pulmonary: Effort: Pulmonary effort is normal. No respiratory distress. Breath sounds: Normal breath sounds. No wheezing or rales. Abdominal: General: There is no distension. Palpations: Abdomen is soft. There is no mass. Tenderness: There is no abdominal tenderness. There is no right CVA tenderness, left CVA tenderness or guarding. Skin: General: Skin is warm and dry. Neurological: Mental Status: She is alert. ASSESSMENT/PLAN: 1. Urinary frequency - ICD9: 788.41, ICD10: R35.0 (primary diagnosis) acute - UA positive for neda esterase, hematuria, and proteinuria - Send urine for culture - Begin treatment with Macrobid 100 mg BID for 7 days - Patient education for prevention given - UA DIP, URINE (POC) - URINE CULTURE - NITROFURANTOIN MONOHYDRATE AND MACROCRYSTAL 100 MG ORAL CAP 2. Gross hematuria - ICD9: 599.71, ICD10: R31.0 - UA DIP, URINE (POC) - URINE CULTURE - Follow-up with your PCP in 3-5 days if symptoms have not improved or sooner if symptoms worsen - Discussed red flags and need for immediate medical evaluation if any occur. - Discussed supportive care treatment with fluids, rest and analgesia. - Discussed expected course of illness Marleen Leon APRN.[facility] 11-09-2022 History of Presen t illness Narrative Subjective HPI Victorina Gloria is a 62 year old female who presents with 2 hours of urinary frequency and dysuria, seeing light blood in her urine. She has not had a fever. She took ibuprofen at home for her symptoms. She denies fever, back pain or abdominal pain. Review of Systems Constitutional: Negative for chills and fever. Respiratory: Negative. Cardiovascular: Negative. Gastrointestinal: Negative for nausea and vomiting. Genitourinary: Positive for dysuria, frequency and hematuria. Musculoskeletal: Negative for back pain. BP 126/74 Pulse 80 Temp 36.1 C (96.9 F) Resp 16 Wt 68.5 kg (151 lb) LMP 10/14/2009 SpO2 98% BMI 24.01 kg/m 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/02/2016 Variants of migraine, not elsewhere classified, without mention of intractable migraine without mention of status migrainosus with menses Varicose veins of other sites PAST SURGICAL HISTORY Procedure Laterality Date CAUTERY CERVIX CRYOCAUTERY INITIAL/REPEAT 1987 done twice COLPOSCOPY CERVIX UPPER/ADJACENT VAGINA 1997,2006,2009 X 2; 2010 CONIZATION CERVIX W/WO D&C RPR ELTRD EXC 11/22/2008 LEEP-Cervix LEFT WRIST CARPAL TUNNEL ONLY 06/11/2016 [facility] PAST SURGICAL HISTORY OF laser surgery in 1988 on Cx PAST SURGICAL HISTORY OF 1989 laser of biopsy in her 's THYROIDECTOMY TOTAL/COMPLETE 08/08/2010 benign thyroid nodules ALLERGIES Patient has no known allergies. MEDICATIONS SUMAtriptan (IMITREX) 100 mg tablet Take 1 tablet by mouth as needed for Migraine Headache (see administra tion instructions). levothyroxine (SYNTHROID) 88 mcg tablet TAKE 1 TABLET BY MOUTH ONCE DAILY ON WEDNESDAY, WEDNESDAY, WEDNESDAY AND WEDNESDAY OMEGA3,5,6,7,9 NO.1/SALMON OIL (COMPLETE OMEGA ORAL) Take by mouth. nitrofurantoin monohydrate and macrocrystal (MACROBID) 100 mg capsule Take 1 capsule by mouth twice daily for 7 days. levothyroxine (SYNTHROID) 75 mcg tablet 75 mcg every Wed-Wed-Wed. Take on empty stomach. (Patient not taking: Reported on 08/27/2022) Ornxqmxixfagn-Loyetyexpxtgz-GV (TYLENOL COLD HEAD CONGEST SEVR) 5-325-200 mg tab Take 1 Dose by mouth as directed. (Patient not taking: Reported on 06/16/2018 ) FAMILY HISTORY Problem Relation Age of Onset None Mother None Father Diabetes Maternal Grandmother in 60's from [place] None Brother Coronary Artery Disease Brother [place] age 43 other (suicide) Brother 24 Social History Tobacco Use Smoking status: Never Smokeless tobacco: Never Substance Use Topics Alcohol use: Yes Comment: occasionally 6 per year Drug use: No Objective Physical Exam Vitals and nursing note reviewed. Constitutional: General: She is not in acute distress. Appearance: Normal appearance. She is not toxic-appearing. Cardiovascular: Rate and Rhythm: Normal rate and regular rhythm. Heart sounds: Normal heart sounds. Pulmonary: Effort: Pulmonary effort is normal. No respiratory distress. Breath sounds: Normal breath sounds. No wheezing or rales. Abdominal: General: There is no distension. Palpations: Abdomen is soft. There is no mass. Tenderness: There is no abdominal tenderness. There is no right CVA tenderness, left CVA tenderness or guarding. Skin: General: Skin is warm and dry. Neurological: Mental Status: She is alert. ASSESSMENT/PLAN: 1. Urinary frequency - ICD9: 788.41, ICD10: R35.0 (primary diagnosis) acute - UA positive for neda esterase, hematuria, and proteinuria - Send urine for culture - Begin treatment with Macrobid 100 mg BID for 7 days - Patient education for prevention given - UA DIP, URINE (POC) - URINE CULTURE - NITROFURANTOIN MONOHYDRATE & MACROCRYSTAL 100 MG ORAL CAP 2. Gross hematuria - ICD9: 599.71, ICD10: R31.0 - UA DIP, URINE (POC) - URINE CULTURE - Follow-up with your PCP in 3-5 days if symptoms have not improved or sooner if symptoms worsen - Discussed red flags and need for immediate medical evaluation if any occur. - Discussed supportive care treatment with fluids, rest and analgesia. - Discussed expected course of illness Marleen Leon APRN.CNP documented in this encounter [facility] 11-09-2022 Instructions Marleen Leon APRN.CNP - 11/09/2022 7:42 PM EST ASSESSMENT/PLAN: 1. Urinary frequency - ICD9: 788.41, ICD10: R35.0 (primary diagnosis) acute - UA positive for neda esterase, hematuria, and proteinuria - Send urine for culture - Begin treatment with Macrobid 100 mg BID for 7 days - Patient education for prevention given - UA DIP, URINE (POC) - URINE CULTURE - NITROFURANTOIN MONOHYDRATE & MACROCRYSTAL 100 MG ORAL CAP 2. Gross hematuria - ICD9: 599.71, ICD10: R31.0 - UA DIP, URINE (POC) - URINE CULTURE - Follow-up with your PCP in 3-5 days if symptoms have not improved or sooner if symptoms worsen - Discussed red flags and need for immediate medical evaluation if any occur. - Discussed supportive care treatment with fluids, rest and analgesia. - Discussed expected course of illness Marleen Leon APRN.ELECTRICAL CONTINUITY TESTER [facility] PATIENT INFO BLADDER INFECTION OVERVIEW Bladder infections are one of the most common infections, causing symptoms of burning with urination and needing to urinate frequently. A bladder infection is a type of urinary tract infection (UTI). Bladder infections are more common is women than men. Most women have an uncomplicated bladder infection that is easily treated with a short course of antibiotics. In men, bladder infections may also affect the prostate gland, and a longer course of treatment may be needed. BLADDER INFECTION CAUSES The urinary tract includes the kidneys (which filter urine), ureters (the tube that carries urine from the kidneys to the bladder), the bladder (which stores urine), and urethra (the tube that carries urine out of the bladder). Bacteria do not normally live in these areas. However, bacteria normally live close to the urethra in women and men who are not circumcised. Bladder infections occur when bacteria travel up the urethra into the bladder. Factors that increase the risk of developing a bladder infection include: Vaginal sex Use of spermicides History of past bladder infections Diabetes In men, not being circumcised or having anal sex increase the risk of bladder infections. BLADDER INFECTION SYMPTOMS The typical symptoms of a bladder infection include: Pain or burning when urinating Frequent need to urinate Urgent need to urinate Blood in the urine Fever, back pain, nausea, or vomiting are not common symptoms of a bladder infection, but can occur in people with a kidney infection (pyelonephritis). If you have these symptoms, you should call your doctor or nurse immediately. Is it a bladder infection or something else? -- Burning with urination can also occur in people with vaginitis (eg, yeast infection) or urethritis (inflammation of the urethra). For this reason, it is important to call your healthcare provider before assuming you have a bladder infection. BLADDER INFECTION DIAGNOSIS Simple bladder infections are usually diagnosed based upon your symptoms alone. However, most patients, especially those who have bladder infection symptoms for the first time, should see a healthcare provider for urine testing. Urine culture -- A urine culture is a test that uses a sample of urine to try and grow bacteria in a laboratory. It usually requires about 48 hours to get results. However, a urine culture is not always required to diagnose a bladder infection. Urine culture is often recommended if: You have never had a bladder infection before You have symptoms that are not typical for bladder infection You have had resistant bladder infections before You have frequent bladder infections You do not begin to feel better within 24 to 48 hours after starting antibiotics You are BLADDER INFECTION TREATMENT Bladder infection -- In young, healthy adolescents and adults with a bladder infection, the usual treatment includes a three to seven day course of antibiotics. The typical drugs chosen are: trimethoprim-sulfamethoxazole (Bactrim ), nitrofurantoin (Macrobid ), ciprofloxacin (Cipro ) or levofloxacin (Levaquin ). In men, the infection may involve your prostate gland and treatment is usually given for at least 7 days. Your symptoms should begin to resolve within one day after starting treatment. It is important to take the full course of antibiotics to completely eliminate the infection. If your symptoms persist for more than two or three days after starting treatment, call your healthcare provider. If needed, you can take a prescription medication that numbs the bladder and urethra (phenazopyridine [Pyridium ]) to reduce the burning pain of some UTIs. A similar medication is available without a prescription (eg, Uristat). Both medications change the color of the urine (usually blue or orange) and can interfere with laboratory testing. You should not take these medications for more than 48 hours due to the risk of side effects. These medications do not treat the infection and must be taken along with an antibiotic. Some providers recommend drinking more fluids while treating bladder infections to help flush bacteria from the bladder. Others believe that drinking more fluids may dilute the antibiotic in the bladder and make the medication less effective. No studies have been performed to address this issue. There are also no good studies on the effectiveness of cranberry juice for treating a bladder infection; we do not recommend using cranberry juice to treat bladder infections. Follow-up care -- Follow-up testing is not needed in healthy, young men or women with a bladder infection if symptoms resolve. women are usually asked to have a repeat urine culture one to two weeks after treatment has ended to make sure the bacteria are no longer in the urine. RECURRENT BLADDER INFECTIONS Bladder infections versus other causes -- Some adults, especially women, develop bladder infections frequently. In this case, it is important to confirm that your symptoms (eg, pain or burning, frequency, and urgency) are caused by a bladder infection. Symptoms are usually similar from one infection to another. The best way to confirm an infection is to have a urine culture. If your urine culture is negative for infection, other causes of pain, burning, and frequency should be investigated. There is no reason to take antibiotics if your urine culture is negative. Need for further testing -- If you continue to develop bladder infections, you may require further testing. If you continue to notice blood in your urine after your bladder infection has cleared, you should have further testing. Preventing recurrent UTIs -- Women with recurrent urinary tract infections may be advised to take steps to prevent bladder infections, including one or more of the following: Changes in control -- Women who develop frequent bladder infections and use spermicides, particularly those who also use a diaphragm, may be encouraged to use an alternate method of control. Cranberry products -- Taking cranberry juice or cranberry tablets has been promoted as one way to help prevent frequent bladder infections. However, this has not been proven. Drinking more fluid and urinating after intercourse -- Although studies have not proven that drinking more fluids or urinating soon after intercourse can prevent infection, some healthcare providers recommend these measures since they are not harmful. Drinking more fluid may help to wash out bacteria that enter the bladder. Postmenopausal women -- Postmenopausal women who develop recurrent bladder infections may benefit from using vaginal estrogen. Vaginal estrogen is available in a flexible ring that is worn in the vagina for three months (eg, Estring ), a small tablet (Vagifem ), or a cream (eg, Premarin or Estrace ). Vaginal estrogen is discussed in more detail in a separate topic review. Antibiotics -- A preventive antibiotic treatment may be recommended if you repeatedly develop bladder infections and have not responded to other preventive measures. Antibiotics are highly effective in preventing recurrent bladder infections and can be taken in several different ways. Preventive antibiotic -- You can take a low dose of an antibiotic once per day or three times per week for six months to several years. Antibiotics following intercourse -- In women who develop urinary tract infections after sex, taking a single low dose antibiotic after intercourse can help to prevent bladder infections. Self-treatment -- A plan to begin antibiotics at the first sign of a bladder infection may be recommended in some situations. Before starting this regimen, it is important that you have had testing (urine cultures) to confirm that your symptoms are caused by a bladder infection; some people have symptoms of a bladder infection but do not actually have an infection. documented in this encounter [facility] 08-27-2022 Note HNO ID: [id number] Author: Daisha Benavides LPN Service: ? Author Type: ? Type: Progress Notes Filed: 08/27/2022 2:46 PM Note Text: Ambulatory Ear Lavage Pre-treatment: Warm water Treatment: Both ears Equipment and Irrigation solution and Volume used: Single use syringe with single use irrigation tip Water Return flow appearance: Brown Patient tolerated procedure: yes Post-treatment: Post Irrigation Post-treatment: Ear Canal/Tympanic membrane assessed by HENRIQUE Rojo. Daisha Benavides LPN [facility] 08-27-2022 Note HNO ID: [id number] Author: Mary Rojo APRN.LOI Service: ? Author Type: Nurse Practitioner Type: Progress Notes Filed: 08/27/2022 2:42 PM Note Text: CC: Patient presents with: Ear Problem: Left ear feels plugged HPI: Victorina Gloria is a 62 year old female who presents to the office with complaint of ear symptoms for a few days. Symptoms are staying the same. Associated symptoms includes ear pressure . Denies headache, body aches, fever, nausea, vomiting , and diarrhea. Treatments tried include nothing so far. with no relief of symptoms. Sick contacts: unknown. History of asthma, frequent episodes of bronchitis, chronic bronchitis, bronchiectasis or COPD: No Smoker: No Seasonal/environmental allergies: No The ROS is otherwise negative. The patient's pmh, medications, allergies, and past visits are reviewed. PHYSICAL EXAM: BP 128/80 Pulse 81 Temp 36.6 ?C (97.8 ?F) (Tympanic) Resp 16 Wt 67.2 kg (148 lb 3.2 oz) LMP 10/14/2009 SpO2 99% BMI 23.56 kg/m? General appearance: alert, cooperative, pleasant, in no acute distress Head: Normocephalic Eyes: EOM's intact, conjunctiva pink and moist, no icterus, sclera white, non-injected Ears: Right ear: External ear/canal- partial impaction, TM - clear with good landmarks, what is visible. 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 Variants of migraine, not elsewhere classified, without mention of intractable migraine without mention of status migrainosus with menses Varicose veins of other sites PAST SURGICAL HISTORY Procedure Laterality Date CAUTERY CERVIX CRYOCAUTERY INITIAL/REPEAT 1987 done twice COLPOSCOPY CERVIX UPPER/ADJACENT VAGINA 1997,2006,2009 X 2; 2010 CONIZATION CERVIX W/WO DANDC RPR ELTRD EXC 11/22/2008 LEEP-Cervix LEFT WRIST CARPAL TUNNEL ONLY 06/11/2016 [facility] PAST SURGICAL HISTORY OF laser surgery in 1988 on Cx PAST SURGICAL HISTORY OF 1989 laser of biopsy in her 20's THYROIDECTOMY TOTAL/COMPLETE 08/08/2010 benign thyroid nodules ALLERGIES Patient has no known allergies. MEDICATIONS SUMAtriptan (IMITREX) 100 mg tablet Take 1 tablet by mouth as needed for Migraine Headache (see administra tion instructions). levothyroxine (SYNTHROID) 88 mcg tablet TAKE 1 TABLET BY MOUTH ONCE DAILY ON WEDNESDAY, WEDNESDAY, WEDNESDAY AND WEDNESDAY OMEGA3,5,6,7,9 NO.1/SALMON OIL (COMPLETE OMEGA ORAL) Take by mouth. levothyroxine (SYNTHROID) 75 mcg tablet 75 mcg every Mon-Wed-Wed. Take on empty stomach. (Patient not taking: Reported on 08/27/2022) Qehzjcfwsmbll-Hyxadwsmhscxm-BU (TYLENOL COLD HEAD CONGEST SEVR) 5-325-200 mg tab Take 1 Dose by mouth as directed. (Patient not taking: Reported on 06/16/2018 ) FAMILY HISTORY Problem Relation Age of Onset None Mother None Father Diabetes Maternal Grandmother in 60's from [place] None Brother Coronary Artery Disease Brother [place] age 43 other (suicide) Brother 24 Social History Tobacco Use Smoking status: Never Smokeless tobacco: Never Substance Use Topics Alcohol use: Yes Comment: occasionally 6 per year Drug use: No ASSESSMENT/PLAN: 1. Impacted cerumen of left ear - ICD9: 380.4, ICD10: H61.22 - REMOVAL OF IMPACTED CERUMEN - INSTRUMENTATION Ears were flushed successfully both tympanic membrane brains are visible and within normal limits. Potential red flag symptoms discussed with the patient. Reviewed appropriate action plan to take if red flag symptoms occur. Patient agreeable to treatment plan. Mary Rojo APRN.[facility] 08-27-2022 History of Presen t illness Narrative Ambulatory Ear Lavage Pre-treatment: Warm water Treatment: Both ears Equipment and Irrigation solution and Volume used: Single use syringe with single use irrigation tip Water Return flow appearance: Brown Patient tolerated procedure: yes Post-treatment: Post Irrigation Post-treatment: Ear Canal/Tympanic membrane assessed by LIP Mary Rojo. Daisha Benavides LPN CC: Patient presents with: Ear Problem: Left ear feels plugged HPI: Victorina Gloria is a 62 year old female who presents to the office with complaint of ear symptoms for a few days. Symptoms are staying the same. Associated symptoms includes ear pressure . Denies headache, body aches, fever, nausea, vomiting , and diarrhea. Treatments tried include nothing so far. with no relief of symptoms. Sick contacts: unknown. History of asthma, frequent episodes of bronchitis, chronic bronchitis, bronchiectasis or COPD: No Smoker: No Seasonal/environmental allergies: No The ROS is otherwise negative. The patient's pmh, medications, allergies, and past visits are reviewed. PHYSICAL EXAM: BP 128/80 Pulse 81 Temp 36.6 C (97.8 F) (Tympanic) Resp 16 Wt 67.2 kg (148 lb 3.2 oz) LMP 10/14/2009 SpO2 99% BMI 23.56 kg/m General appearance: alert, cooperative, pleasant, in no acute distress Head: Normocephalic Eyes: EOM's intact, conjunctiva pink and moist, no icterus, sclera white, non-injected Ears: Right ear: External ear/canal- partial impaction, TM - clear with good landmarks, what is visible. 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 Variants of migraine, not elsewhere classified, without mention of intractable migraine without mention of status migrainosus with menses Varicose veins of other sites PAST SURGICAL HISTORY Procedure Laterality Date CAUTERY CERVIX CRYOCAUTERY INITIAL/REPEAT 1987 done twice COLPOSCOPY CERVIX UPPER/ADJACENT VAGINA 1997,2006,2009 X 2; 2010 CONIZATION CERVIX W/WO D&C RPR ELTRD EXC 11/22/2008 LEEP-Cervix LEFT WRIST CARPAL TUNNEL ONLY 06/11/2016 [facility] PAST SURGICAL HISTORY OF laser surgery in 1988 on Cx PAST SURGICAL HISTORY OF 1989 laser of biopsy in her THYROIDECTOMY TOTAL/COMPLETE 08/08/2010 benign thyroid nodules ALLERGIES Patient has no known allergies. MEDICATIONS SUMAtriptan (IMITREX) 100 mg tablet Take 1 tablet by mouth as needed for Migraine Headache (see administra tion instructions). levothyroxine (SYNTHROID) 88 mcg tablet TAKE 1 TABLET BY MOUTH ONCE DAILY ON WEDNESDAY, WEDNESDAY, WEDNESDAY AND WEDNESDAY OMEGA3,5,6,7,9 NO.1/SALMON OIL (COMPLETE OMEGA ORAL) Take by mouth. levothyroxine (SYNTHROID) 75 mcg tablet 75 mcg every Wed-Wed-Wed. Take on empty stomach. (Patient not taking: Reported on 08/27/2022) Pkvtsfgvbarec-Smccbgkinbivf-WI (TYLENOL COLD HEAD CONGEST SEVR) 5-325-200 mg tab Take 1 Dose by mouth as directed. (Patient not taking: Reported on 06/16/2018 ) FAMILY HISTORY Problem Relation Age of Onset None Mother None Father Diabetes Maternal Grandmother in 60's from [place] None Brother Coronary Artery Disease Brother [place] age 43 other (suicide) Brother 24 Social History Tobacco Use Smoking status: Never Smokeless tobacco: Never Substance Use Topics Alcohol use: Yes Comment: occasionally 6 per year Drug use: No ASSESSMENT/PLAN: 1. Impacted cerumen of left ear - ICD9: 380.4, ICD10: H61.22 - REMOVAL OF IMPACTED CERUMEN - INSTRUMENTATION Ears were flushed successfully both tympanic membrane brains are visible and within normal limits. Potential red flag symptoms discussed with the patient. Reviewed appropriate action plan to take if red flag symptoms occur. Patient agreeable to treatment plan. Mary Rojo APRN.LOI documented in this encounter [facility] 03-28-2022 Note HNO ID: [id number] Author: Mary Rojo APRN.CNP Service: ? Author Type: Nurse Practitioner Type: Progress Notes Filed: 03/28/2022 2:38 PM Note Text: Subjective Patient came in with complaints of back spasms for about 3.5 weeks. Did have a week in there where she thought it was getting better. Said she gets them and usually they last a day or so. This time has been different. Did not have a mechanical injury that she knows of. denies any radiation of numbnenss of tingling. Denies difficulty urinating. denies any other symptoms. Spasm is on the left middle back. Patient ddi see her dr initially and had xrays done. Back Pain Review of Systems Constitutional: Negative. Musculoskeletal: Positive for back pain. Skin: Negative. Objective Physical Exam Constitutional: Appearance: Normal appearance. Pulmonary: Effort: Pulmonary effort is normal. Musculoskeletal: Arms: Comments: spasm is in this area. patient said she is a little tender in that area when palpated as well. Neurological: Mental Status: She is alert. PAST MEDICAL HISTORY Diagnosis Date - Abnormal Papanicolaou smear of vagina and vaginal HPV resultsof lgsil - Carpal tunnel syndrome, bilateral 03/05/2016 - Grave's disease 08/08/2010 S/P thyroidectomy, now on synthroid - Migraine - Mild dysplasia of cervix Laser treatment in 1989 Exact degree uncertain - Spondylosis of lumbar region without myelopathy or radiculopathy 01/02/2016 - Variants of migraine, not elsewhere classified, without mention of intractable migraine without mention of status migrainosus with menses - Varicose veins of other sites PAST SURGICAL HISTORY Procedure Laterality Date - CAUTERY CERVIX CRYOCAUTERY INITIAL/REPEAT 1987 done twice - COLPOSCOPY CERVIX UPPER/ADJACENT VAGINA 1997,2006,2009 X 2; 2010 - CONIZATION CERVIX W/WO DANDC RPR ELTRD EXC 11/22/2008 LEEP-Cervix - LEFT WRIST CARPAL TUNNEL ONLY 06/11/2016 [facility] - PAST SURGICAL HISTORY OF laser surgery in 1988 on Cx - PAST SURGICAL HISTORY OF 1989 laser of biopsy in her s - THYROIDECTOMY TOTAL/COMPLETE 08/08/2010 benign thyroid nodules ALLERGIES Patient has no known allergies. MEDICATIONS SUMAtriptan (IMITREX) 100 mg tablet Take 1 tablet by mouth as needed for Migraine Headache (see administra tion instructions). levothyroxine (SYNTHROID) 75 mcg tablet 75 mcg every Wed-Wed-Wed. Take on empty stomach. levothyroxine (SYNTHROID) 88 mcg tablet TAKE 1 TABLET BY MOUTH ONCE DAILY ON WEDNESDAY, WEDNESDAY, WEDNESDAY AND WEDNESDAY OMEGA3,5,6,7,9 NO.1/SALMON OIL (COMPLETE OMEGA ORAL) Take by mouth. cyclobenzaprine (FLEXERIL) 10 mg tablet Take 0.5 tablets by mouth twice daily as needed for muscle spasm for up to 10 days. Wsgkaoqkweecs-Gkziquetnjmvn-LV (TYLENOL COLD HEAD CONGEST SEVR) 5-325-200 mg tab Take 1 Dose by mouth as directed. FAMILY HISTORY Problem Relation Age of Onset - None Mother - None Father - Diabetes Maternal Grandmother in 60's from [place] - None Brother - Coronary Artery Disease Brother [place] age 43 - other (suicide) Brother 24 Social History Tobacco Use - Smoking status: Never Smoker - Smokeless tobacco: Never Used Substance Use Topics - Alcohol use: Yes Comment: occasionally 6 per year - Drug use: No ASSESSMENT/PLAN: 1. Back spasm - ICD9: 724.8, ICD10: M62.830 Low dose flexeril prescribed. Educated about medication and drowsiness side effect. patient will follow up if symptoms continue. Patient was okay with this care plan. Mary Rojo APRN.CNP [facility] 03-28-2022 Miscellaneous Notes Addended by: MARY ROJO on: 03/28/2022 02:40 PM Modules accepted: Orders documented in this encounter [facility] 03-28-2022 History of Presen t illness Narrative Images from the original note were not included. Subjective Patient came in with complaints of back spasms for about 3.5 weeks. Did have a week in there where she thought it was getting better. Said she gets them and usually they last a day or so. This time has been different. Did not have a mechanical injury that she knows of. denies any radiation of numbnenss of tingling. Denies difficulty urinating. denies any other symptoms. Spasm is on the left middle back. Patient ddi see her dr initially and had xrays done. Back Pain Review of Systems Constitutional: Negative. Musculoskeletal: Positive for back pain. Skin: Negative. Objective Physical Exam Constitutional: Appearance: Normal appearance. Pulmonary: Effort: Pulmonary effort is normal. Musculoskeletal: Arms: Comments: spasm is in this area. patient said she is a little tender in that area when palpated as well. Neurological: Mental Status: She is alert. 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/02/2016 Variants of migraine, not elsewhere classified, without mention of intractable migraine without mention of status migrainosus with menses Varicose veins of other sites PAST SURGICAL HISTORY Procedure Laterality Date CAUTERY CERVIX CRYOCAUTERY INITIAL/REPEAT 1987 done twice COLPOSCOPY CERVIX UPPER/ADJACENT VAGINA 1997,2006,2009 X 2; 2010 CONIZATION CERVIX W/WO D&C RPR ELTRD EXC 11/22/2008 LEEP-Cervix LEFT WRIST CARPAL TUNNEL ONLY 06/11/2016 [facility] PAST SURGICAL HISTORY OF laser surgery in 1989 on Cx PAST SURGICAL HISTORY OF 1989 laser of biopsy in her 20's THYROIDECTOMY TOTAL/COMPLETE 08/08/2010 benign thyroid nodules ALLERGIES Patient has no known allergies. MEDICATIONS SUMAtriptan (IMITREX) 100 mg tablet Take 1 tablet by mouth as needed for Migraine Headache (see administra tion instructions). levothyroxine (SYNTHROID) 75 mcg tablet 75 mcg every Wed-Wed-Wed. Take on empty stomach. levothyroxine (SYNTHROID) 88 mcg tablet TAKE 1 TABLET BY MOUTH ONCE DAILY ON WEDNESDAY, WEDNESDAY, WEDNESDAY AND WEDNESDAY OMEGA3,5,6,7,9 NO.1/SALMON OIL (COMPLETE OMEGA ORAL) Take by mouth. cyclobenzaprine (FLEXERIL) 10 mg tablet Take 0.5 tablets by mouth twice daily as needed for muscle spasm for up to 10 days. Itqvewyzdhrps-Dudivsjjvhnso-YW (TYLENOL COLD HEAD CONGEST SEVR) 5-325-200 mg tab Take 1 Dose by mouth as directed. FAMILY HISTORY Problem Relation Age of Onset None Mother None Father Diabetes Maternal Grandmother in 60's from [place] None Brother Coronary Artery Disease Brother [place] age 43 other (suicide) Brother 24 Social History Tobacco Use Smoking status: Never Smoker Smokeless tobacco: Never Used Substance Use Topics Alcohol use: Yes Comment: occasionally 6 per year Drug use: No ASSESSMENT/PLAN: 1. Back spasm - ICD9: 724.8, ICD10: M62.830 Low dose flexeril prescribed. Educated about medication and drowsiness side effect. patient will follow up if symptoms continue. Patient was okay with this care plan. Mary Rojo APRN.LOI documented in this encounter [facility] 03-05-2016 History of Past i llness Narrative Problem Noted Date Resolved Date Carpal tunnel syndrome, bilateral 03/05/2016 06/16/2018 Spondylosis of lumbar region without myelopathy or radiculopathy 01/02/2016 06/16/2018 Mild cervical dysplasia 06/11/2011 06/28/20 12 Medial epicondylitis 01/23/2011 04/19/2015 Vitamin D deficiency 12/25/2010 04/19/2015 Heart palpitations 10/31/2009 06/04/2016 Graves' disease 10/31/2009 06/04/2016 documented as of this encounter (statuses as of 03/28/2022) [facility] History of Past illness Narrative* Problem Noted Date Resolved Date Carpal tunnel syndrome, bilateral 03/05/2016 06/16/2018 Spondylosis of lumbar region without myelopathy or radiculopathy 01/02/2016 06/16/2018 Mild cervical dysplasia 06/11/2011 06/28/20 12 Medial epicondylitis 01/23/2011 04/19/2015 Vitamin D deficiency 12/25/2010 04/19/2015 Heart palpitations 10/31/2009 06/04/2016 Graves' disease 10/31/2009 06/04/2016 documented as of this encounter (statuses as of 08/27/2022) [facility] History of Past illness Narrative* Problem Noted Date Resolved Date Carpal tunnel syndrome, bilateral 03/05/2016 06/16/2018 Spondylosis of lumbar region without myelopathy or radiculopathy 01/02/2016 06/16/2018 Mild cervical dysplasia 06/11/2011 06/28/20 12 Medial epicondylitis 01/23/2011 04/19/2015 Vitamin D deficiency 12/25/2010 04/19/2015 Heart palpitations 10/31/2009 06/04/2016 Graves' disease 10/31/2009 06/04/2016 documented as of this encounter (statuses as of 11/10/2022) [facility] Back spasm- Primary Other symptoms referable to back [facility] Diagnosis Impacted cerumen of left ear- Primary Impacted cerumen [facility] Urinary frequency- Primary Gross hematuria documented in this encounter [facility] Summary Purpose Family History No Family History Records Found Advance Directives No Advanced Directives Records Found Additional Source Comments Source Comments (unrecognize d section and content) In the event this informatio n is protected by the Federal Confidentiality of Alcohol and Drug Abuse Patient Records regulations: The Federal rules restrict any use of the information to criminally investigate or prosecute any alcohol or drug abuse patient.[facility] the event this information is protected by the Federal Confidentiality of Alcohol and Drug Abuse Patient Records regulations: The Federal rules restrict any use of the information to criminally investigate or prosecute any alcohol or drug abuse patient.[facility] the event this information is protected by the Federal Confidentiality of Alcohol and Drug Abuse Patient Records regulations: The Federal rules restrict any use of the information to criminally investigate or prosecute any alcohol or drug abuse patient.[facility] Reason for Visit (unrecogniz ed section and content) Reason Comments Back Pain back spasms x 3.5 we eks Reason Comments Ear Problem Left ear feels plugg ed Reason Comments Urinary Frequency burning with urinati on and hematuria x 2 hours Care Teams (unrecognized sec tion and content) Book Sewer Relationship Specialty Start Date End Date Ren Bustamante III, MD [place] [address]DRESS PCP - General 11/12/03 Book Sewer Relationship Specialty Start Date End Date Tanya Miranda [address] [place] [address] PCP - General Family Medicine 08/27/22 Book Sewer Relationship Specialty Start Date End Date Tanya Miranda MD [address] [place] [address] PCP - General Family Medicine 08/27/22 INFORMATION SOURCE (unrecogn ized section and content) DATE CREATED AUTHOR 11/12/2022 [facility] FOR RECORDS PERTAINING TO PATIENTS WHO ARE OR HAVE BEEN ENROLLED IN A CHEMICAL DEPENDENCY/SUBSTANCEABUSE PROGRAM, SOME INFORMATION MAY BE OMITTED. This clinical summary was aggregated from multiple sources. Caution should be exercised in using it in the provision of clinical care. This summary normalizes information from multiple sources, and as a consequence, information in this document may materially change the coding, format and clinical context of patient data. In addition, data may be omitted in some cases. CLINICAL DECISIONS SHOULD BE BASED ON THE PRIMARY CLINICAL RECORDS. [employer] provides no warranty or guarantee of the accuracy or completeness of information in this document.
== END | disposition home or self-care (01) ==
LOC: OPBI 08:37
PROVIDERS: PCP Family Medicine; Referring Provider Family Medicine; Visit Provider Family Medicine
DX: Z12.31 Encounter for screening mammogram for malignant neoplasm of breast (principal)
CPT/HCPCS: 77063; 77067

== ENCOUNTER → 2024-08-15 | Outpatient (CLI) | payer OTHER, SELFPAY ==
[2024-08-22 13:08] LABS: HPV APTIMA, High Risk Negative (Negative)
== END | disposition home or self-care (01) ==
LOC: LABSPEC 10:33
PROVIDERS: PCP Family Medicine; Referring Provider Nurse Practitioner Women's Health; Visit Provider Nurse Practitioner Women's Health
DX: Z12.4 Encounter for screening for malignant neoplasm of cervix (principal)
CPT/HCPCS: 87624; 88175; G0145

== ENCOUNTER → 2025-06-22 | Outpatient (CLI) | payer OTHER, SELFPAY ==
--- OUTSIDE RECORDS SUMMARY | 2025-06-22 07:13 | XMS RPT_ITS | CCD ---
Author Organization [facility] Informformerly [facility] Partnership [facility] Care Team Providers Care Cargo Services Coordinator Name Role Phone Dianna KAPADIA MD, Frank A Primary Care Provider Leatha vailable Tanya Miranda Primary Care Provider Tanya Miranda MD Primary Care Provider TANYA MIRANDA Primary Care Unavailable TANYA MIRANDA E Primary Care Unavailable REN BUSTAMANTE III Primary Care Unavailable Miosmarel, Tanya Primary Care Unavailable Miedel, Tanya Referring Unavailable Anni ANALYTICAL CONSULTANT, Rae Attending Unavailable Miedel, Tanya Primary Care Unavailable Anni ANALYTICAL CONSULTANT, Rae Referring Unavailable Anni ANALYTICAL CONSULTANT, Rae Attending Unavailable Miedel, Tanya Primary Care Unavailable Miedel, Tanya Referring Unavailable Miedel, Tanya Attending Unavailable Miedel, Tanya Referring Unavailable Miedel, Tanya Attending Unavailable Miedel, Tanya Primary Care Unavailable Miosmarel, Tanya Attending Unavailable Miedel, Tanya Primary Care Unavailable Miedel, Tanya Primary Care Unavailable Migreta Tanya Attending Unavailable Medications Current Medications Medication Drug Class(es) [...] Comment on above: Take 1 capsule by [facility] twice daily for 7 days. Completed/Discontinued Medications Medication Drug Class(es) Dates Sig (Normalized) Sig (Original) acetaminophen 325 mg / guaiFENesin 200 mg / phenylephrine hydrochloride 5 mg oral tablet (3 sources) alpha-1 Adrenergic Agonist Start: 08-20-2017 Phenylephrine-Acet aminophen-GG (TYLENOL COLD HEAD CONGEST SEVR) 5-325-200 mg tab Indications: Viral URI with cough Take 1 Dose by mouth as directed. 30 tablet 0 08/20/2017 Active Comment on above: Take 1 Dose by mouth as directed. Fish,Bora,Flax Oils-Om3,6,9no1 (3 sources) Start: 06-02-2016 End: 10-26-2017 take 400 mg by mouth once daily Fish,Bora,Flax Oils-Om3,6,9no1 Discontinued 400 MG PO DAILY June 01, 2016 11:00pm October 26, 2017 8:07am Start: 06-02-2016 End: 10-26-2017 take 400 mg by mouth once daily Fish,Bora,Flax Oils-Om3,6,9no1 Discontinued 400 MG PO DAILY June 02, 2016 12:00am October 26, 2017 9:07am levothyroxine sodium 0.075 mg oral tablet (12 sources) l-Thyroxine Start: 05-30-2020 levothyroxine (SYNTHROID) 75 mcg tablet Indications: Postsurgical hypothyroidism 75 mcg every Wed-Wed-Wed. Take on empty stomach. 36 tablet 3 05/30/2020 Active Start: 10-26-2017 Levothyroxine Active 75 MCG PO October 26, 2017 1:00am Start: 06-02-2016 Levothyroxine Active 88 MCG PO June 02, 2016 12:00am Comment on above: 75 mcg every Wed-Wed -Wed. Take on empty stomach. TAKE 1 TABLET BY ADRI TH ONCE DAILY ON WEDNESDAY, WEDNESDAY, WEDNESDAY AND WEDNESDAY OMEGA3,5,6,7,9 NO.1/SALMON OIL (COMPLETE OMEGA ORAL) (3 sources) OMEGA3,5,6,7,9 NO.1/SALMON OIL (COMPLETE OMEGA ORAL) Take by mouth. 0 Active Comment on above: Take by mouth. SUMAtriptan 100 mg oral tablet (9 sources) Serotonin-1b and Serotonin-1d Receptor Agonist Start: 12-03-2020 SUMAtriptan (IMITREX) 100 mg tablet Indications: Migraine without status migrainosus, not intractable, unspecified migraine type Take 1 tablet by mouth as needed for Migraine Headache (see administra tion instructions). 27 tablet 3 12/03/2020 Active Start: 10-26-2017 take 1 tablet by mouth once Rodriguez matriptan Succinate (Imitrex) 25 mg tablet Active 25 MG PO ONCE October 26, 2017 1:00am Start: 06-02-2016 End: 10-26-2017 Sumatriptan Succinate Discon tinued 100 MG PO .X1 PRN June 02, 2016 12:00am October 26, 2017 9:07am Comment on above: Take 1 tablet by [...] [Frequency of micturition] Episodic Headache; including migraine (6 sources) Migraine; Translations: [Migraine, unspecified, not intractable, without status migrainosus] Onset: 06-04-2016 06-04-2016 Chronic Menopausal disorders (1 source) Postmenopausal atrophic vaginitis; Translations: [Postmenopausal atrophic vaginitis] Onset: 08-15-2024 Chronic Nutritional deficiencies (3 sources) Vitamin D deficiency; Translations: [Vitamin D deficiency, unspecified] Onset: 10-21-2015 10-21-2015 Chronic Osteoarthritis (6 sources) Arthritis of joint of toe; Translations: [Primary osteoarthritis, unspecified ankle and foot] Onset: 06-16-2018 06-16-2018 Chronic Other connective tissue disease (3 sources) Plantar fasciitis; Translations: [Plantar fascial fibromatosis] 11-15-2020 Episodic Other ear and sense organ disorders (1 source) Impacted cerumen in left ear; Translations: [Impacted cerumen, left ear] Episodic Other female genital disorders (3 sources) History of abnormal cervical Papanicolaou smear ; Translations: [Personal history of other diseases of the female genital tract] 07-10-2021 Episodic Spondylosis; intervertebral disc disorders; other back problems (1 source) Spasm of back muscles; Translations: [Muscle spasm of back] Episodic Thyroid disorders (3 sources) Hyperthyroidism; Translations: [Hypothyroidism due to medicaments and other exogenous substances] Onset: 07-20-2024 Chronic Unclassified (1 source) Mammographic heterogeneous density, bilateral breasts; Translations: [Mammographic heterogeneous density, bilateral breasts] Onset: 08-15-2024 Past or Other Problems Problem Classification Problem Date Documented Date Episodic/Chronic Cancer of cervix (3 sources) Low grade squamous intraepithelial lesion on cervical Papanicolaou smear; Translations: [Low grade squamous intraepithelial lesion on cytologic smear of cervix (LGSIL)] Onset: 11-22-2008 11-22-2008 Episodic Other female genital disorders (3 sources) Cervical intraepithelial neoplasia grade 1; Translations: [Mild cervical dysplasia] Onset: 12-24-2008 12-24-2008 Episodic Other female genital disorders (1 source) Personal history of other diseases of the female genital tract; Translations: [Personal history of other diseases of the female genital tract] Onset: 08-15-2024 Episodic Other screening for suspected conditions (not mental disorders or infectious disease) (2 sources) Encounter for screening for malignant neoplasm of cervix; Translations: [Encounter for screening mammogram for malignant neoplasm of breast] Onset: 08-14-2024 Episodic Sexually transmitted infections (not HIV or hepatitis) (3 sources) Human papillomavirus deoxyribonucleic acid test positive, high risk on cervical specimen; Translations: [Cervical high risk human papillomavirus (HPV) DNA test positive] Onset: 12-25-2009 12-25-2009 Episodic Results Test Name Value Interpretation Reference Range Facil ity PAP IG HPV APTIMA 16/18,45on 08-22-2024 ADEQ Comment Normal . [facility] Comment on above: Order Comment: Speci men Comment: [id number] Specimen Comment: Source.............Cervix Specimen Comment: Other..............Post Menopausal Specimen Comment: No. of containers..01 ThinPrep Vial Result Comment: Sati sfactory for evaluation. Endocervical component may not be distinguished in cases of atrophy. Performed By: #### L 7400.0280 #### [facility] [address] [place], [place], [id number] COMM . Normal . [facility] Comment on above: Order Comment: Speci men Comment: [id number] Specimen Comment: Source.............Cervix Specimen Comment: Other..............Post Menopausal Specimen Comment: No. of containers..01 ThinPrep Vial Performed By: #### L 7400.0280 #### [facility] [address] [place], [place], [id number] COMMENT Comment Normal . [facility] Comment on above: Order Comment: Speci men Comment: [id number] Specimen Comment: Source.............Cervix Specimen Comment: Other..............Post Menopausal Specimen Comment: No. of containers..01 ThinPrep Vial Result Comment: This liquid based ThinPrep(R) pap test was screened with the use of an image guided system. Performed By: #### L 7400.0280 #### [facility] [address] [place], [place], [id number] DIAG Comment Normal . [facility] Comment on above: Order Comment: Speci men Comment: [id number] Specimen Comment: Source.............Cervix Specimen Comment: Other..............Post Menopausal Specimen Comment: No. of containers..01 ThinPrep Vial Result Comment: NEGA TIVE FOR INTRAEPITHELIAL LESION OR MALIGNANCY. CELLULAR CHANGES ASSOCIATED WITH ATROPHY ARE PRESENT. Performed By: #### L 7400.0280 #### [facility] [address] [place], [place], [id number] HPV APTIMA, HR Negative Normal Negative [facility] Comment on above: Order Comment: Speci men Comment: [id number] Specimen Comment: Source.............Cervix Specimen Comment: Other..............Post Menopausal Specimen Comment: No. of containers..01 ThinPrep Vial Result Comment: This nucleic acid amplification test detects fourteen high- risk HPV types (16,18,31,33,35,39,45,51,52,56,58,59,66,68) without differentiation. Performed By: #### L 7400.0280 #### [facility] [address] [place], [address] HPV Rosina Rfx Comment Normal . [facility] Comment on above: Order Comment: Speci men Comment: [id number] Specimen Comment: Source.............Cervix Specimen Comment: Other..............Post Menopausal Specimen Comment: No. of containers..01 ThinPrep Vial Result Comment: Crit eria not met, HPV Genotype not performed. Performed at: - [facility] [id number] Cocktail Server: Mala Bejarano MD, Phone: [phone] Performed at: = - [facility] [id number] Cocktail Server: Mala Bejarano MD, Phone: [phone] Performed By: #### L 7400.0280 #### [facility] [address] [place], [place], [id number] PAPSMR Comment Normal . [facility] Comment on above: Order Comment: Speci men Comment: [id number] Specimen Comment: Source.............Cervix Specimen Comment: Other..............Post Menopausal Specimen Comment: No. of containers..01 ThinPrep Vial Result Comment: The Pap smear is a screening test designed to aid in the detection of premalignant and malignant conditions of the uterine cervix. It is not a diagnostic procedure and should not be used as the sole means of detecting cervical cancer. Both false-positive and false-negative reports do occur. Performed By: #### L 7400.0280 #### [facility] [address] [place], [address] PERFORM Comment Normal . [facility] Comment on above: Order Comment: Speci men Comment: [id number] Specimen Comment: Source.............Cervix Specimen Comment: Other..............Post Menopausal Specimen Comment: No. of containers..01 ThinPrep Vial Result Comment: Jada Resendiz, Fur Dressing Supervisor (ASCP) Performed By: #### L 7400.0280 #### [facility] [address] [place], [place], [address] High Density Finishing Operator Office Visit Reporton 08-15-2024 High Density Finishing Operator Office Visit Report [facility] [address], [address] [place] [address] OFFICE VISIT Date of Service: 08/15/24 MR#: [id number] Acct: [id number] Name: VICTORINA GLORIA Rep #: [id number] : 1960 Provider: LIZZY carranza Age/Sex: 64/F Location: [facility] [place] Status: Signed Intake Vital Signs 07/14/24 13:39 08/15/24 09:02 08/15/24 09:06 Height 5 ft 6 in 5 ft 6 in 5 ft 6 in Weight: 147 lb 4 oz BMI 23.8 BP 118/68 Intake Visit Reasons: Annual (TRAINER) Chief Complaint: Annual Machine Specialist Required: No Is patient in pain?: No Allergies No Known Allergies Allergy (Verified 08/15/24 09:01) Medications ???Medication ???Instructions ???Recorded ???Confirmed ???Type levothyroxine 88 mcg tablet 88 mcg PO TUWETHFR 06/02/16 08/15/24 History levothyroxine 75 mcg tablet 75 mcg PO SUMOSA 10/26/17 08/15/24 History sumatriptan succinate 25 mg tablet 25 mg PO ONCE 10/26/17 08/15/24 History (Imitrex) triamcinolone acetonide 55 mcg 1 spray intranasal DAILY #16.9 mL 10/14/23 08/15/24 Rx nasal spray aerosol (Nasacort) multivitamin 1 tab PO QAM 08/15/24 08/15/24 History Is last menstrual period known: No Post menopausal: Yes Patient : No : No [facility] Medical History Wears glasses Post-menopausal Non-smoker Leg cramps History of pain when walking Thyroid disorder Migraines Surgical History S/P LEEP (loop electrosurgical excision procedure) History of carpal tunnel surgery H/O thyroidectomy Social History Smoking Status: Never smoker alcohol intake: never substance use type: does not use caffeine: Yes frequency: 3-4 times per week seatbelt use: always do you feel safe at home: Yes additional social history: [facility] History 2 Elective abortions Hx Para 2 Spontaneous abortions Hx # Term Pregnancies Ectopic pregnancies Hx # Pregnancies Multiple births # of living children Past Pregnancies Del. Date Name GA/Weeks Outcome Route Bth Weight Gen Labor Lgth Anesthesia Del Locatn Provider [facility]ological examination Details: VICTORINA GLORIA is a 64 year old who presents for annual exam. States recent mammogram indicated dense breast tissue and she had not noted that previously. Was able to confirm that it was on other mammograms in past. Last PAP: 2020 History of abnormal PAP: LEEP late . Persistent +HPV. Neg since leep Last mammogram: 06/2024 History of abnormal mammogram: no Colon cancer screenin Other preventative health care screenings: Rickey Female Reproductive History Questions: metorrhagia: No and sexually active: No ROS Const Constitutional: Denies fatigue, weight gain or weight loss Cardio Card: Denies chest pain Resp Resp: Denies cough or dyspnea on exertion GI GI: Denies abdominal pain, bloating, change in stool character, constipation or vomiting : Reports as per HPI; Denies difficulty voiding, pelvic pain, urinary frequency, urinary incontinence, urinary urgency, vaginal discharge or vaginal pruritus Exam Const General: cooperative, healthy appearing, no acute distress and well developed Orientation: alert, oriented to person and oriented to place HENIN Head: normal to inspection Neck Neck: normal visual inspection Thyroid: thyroid normal Lymphatic: no lymphadenopathy noted Chest Breast inspection: normal inspection of the breasts and normal inspection of the axillae Breast palpation: normal palpation of the breasts, normal palpation of the axillae and no axillary lymphadenopathy Resp Effort Inspection: normal respiratory effort GI Palpation: soft, no masses and nontender Rectal Exam: deferred External Female Exam: other (small prolapse/denies incontinence) Urethra: normal palpation Speculum Exam - Vagina: normal vaginal discharge and vagina atrophic Speculum Exam - Cervix: normal appearance of the cervix Bimanual Exam- Vagina Uterus: normal bimanual exam, uterine size normal, uterine shape normal and non-tender Bimanual Exam- Adnexa, other: normal adnexae, no masses, normal and non-tender Pelvic Support: normal Neuro General: patient alert and patient oriented x3 Psych Affect: normal affect Coding Level of Care Code Off vis,est,prev 40-64yrs Diagnoses Encounter for gynecological examination with abnormal finding Z01.411 Gynecological examination findings: abnormal findings PRESENT Hx of abnormal cervical Pap smear Z87.42 Atrophic vaginitis N95.2 Heterogeneously dense tissue of radha (more content not included)... Normal [facility] SCRN MAMM (CAD)W/KEAGAN BILATo n 07-25-2024 SCRN MAMM (CAD)W/KEAGAN BILAT [facility] Imaging Services [address] [place], [place] [address] SCRN MAMM (CAD)W/KEAGANCherelle PRINCE MR#: [id number] Acct: [id number] Name: VICTORINA GLORIA Amalia Rep #: [id number] : 1960 F 64 From: Flavio chaudhari MD PCP: Dr. Tanya Miranda MD Status: [facility] Study: SCRN MAMM (CAD)W/KEAGAN BILAT Date of Exam: 06/28 06/20 Exam# [id number] Ordering Dr: Tanya Miranda MD [id number] MAMMOGRAPHY - BILATERAL SCREENING REASON FOR EXAM: Female, 64 years old. Routine annual screening examination. PERTINENT HISTORY: Non-contributory. TECHNIQUE: Digital bilateral breast keagan (3D mammographic acquisition) in the CC and MLO projections. 2-D mediolateral oblique (MLO) and craniocaudad (CC) views of both breasts were obtained. CAD: Full Field Digital Mammography with Computer Added Detection was performed. COMPARISON: Comparison is made with prior study May 18, 2023 and November 03, 2018. FINDINGS: Breast Composition: The breasts are heterogeneously dense, which may obscure small masses. There are no dominant masses or suspicious calcifications. No other significant abnormalities are identified. There has been no significant change since the prior study. BI/SCRN MAMM (CAD)W/KEAGAN BILAT IMPRESSION: Stable bilateral screening mammogram. Yearly follow-up mammogram recommended. (A) ASSESSMENT CATEGORY: BIRADS Category 1: Negative. A letter regarding these results will be sent to the patient by the facility within 30 days. Approximately 10% of breast cancers are not detected by mammography. A normal mammogram should not delay biopsy of a clinically suspicious abnormality. [id number] Electronically Signed: Flavio Ruiz MD at 11:32 EDT , CC: Dr. Tanya Miranda MD Carroting Machine Operator: Signed Normal [facility] Thyroid Stim Hormone (TSH)on 06-28-2024 TSH 2.320 uIU/mL Normal 0.358-3.740 [facility] Comment on above: Order Comment: ADD O NTO EMPH LABS DONE 06-27-24 Performed By: #### L 501.9520 #### [facility] [address] [place], [address] CBC, Employeeon 2024 Absolute Lymph 1.52 X10 3/uL Normal 0.83-4.51 [facility] Comment on above: Order Comment: PFEM Performed By: #### L 500.2900, L400.0100, L100.0200 #### [facility] [address] [place], [address] Absolute Neut 3.8 X10 3/uL Normal 2.0-7.7 [facility] Comment on above: Order Comment: PFEM Performed By: #### L 500.2900, L400.0100, L100.0200 #### [facility] [address] [place], [address] Basophils/100 WBC (Bld) 0.8 % Normal 0-1 [facility] Comment on above: Order Comment: PFEM Performed By: #### L 500.2900, L400.0100, L100.0200 #### [facility] [address] [place], [address] Eosinophils/100 WBC (Bld) 2.3 % Normal 0-5 [facility] Comment on above: Order Comment: PFEM Performed By: #### L 500.2900, L400.0100, L100.0200 #### [facility] [address] [place], [address] Erythrocyte distribution width (RBC) [Ratio] 12.9 % Normal 11.6-14.6 [facility] Comment on above: Order Comment: PFEM Performed By: #### L 500.2900, L400.0100, L100.0200 #### [facility] [address] [place], [address] Hematocrit (Bld) [Volume fraction] 42.3 % Normal 37-47 [facility] Comment on above: Order Comment: PFEM Performed By: #### L 500.2900, L400.0100, L100.0200 #### [facility] [address] [place], [address] Hemoglobin (Bld) [Mass/Vol] 14.0 g/dL Normal 12.0-15.0 [facility] Comment on above: Order Comment: PFEM Performed By: #### L 500.2900, L400.0100, L100.0200 #### [facility] [address] [place], [address] Lymphocytes/100 WBC (Bld) 25.0 % Normal 19-41 [facility] Comment on above: Order Comment: PFEM Performed By: #### L 500.2900, L400.0100, L100.0200 #### [facility] [address] [place], [address] MCH (RBC) [Entitic mass] 31.3 pg Normal 27.0-32.0 [facility] Comment on above: Order Comment: PFEM Performed By: #### L 500.2900, L400.0100, L100.0200 #### [facility] [address] [place], [address] MCHC (RBC) [Mass/Vol] 33.1 g/dL Normal 32-36 [facility] Comment on above: Order Comment: PFEM Performed By: #### L 500.2900, L400.0100, L100.0200 #### [facility] [address] [place], [address] MCV (RBC) [Entitic vol] 94.4 fL Normal 81-99 [facility] Comment on above: Order Comment: PFEM Performed By: #### L 500.2900, L400.0100, L100.0200 #### [facility] [address] [place], [address] Monocytes/100 WBC (Bld) 8.5 % Normal 0-10 [facility] Comment on above: Order Comment: PFEM Performed By: #### L 500.2900, L400.0100, L100.0200 #### [facility] [address] [place], [address] Neutrophils/100 WBC (Bld) 63.1 % Normal 47-70 [facility] Comment on above: Order Comment: PFEM Performed By: #### L 500.2900, L400.0100, L100.0200 #### [facility] [address] [place], [address] NRBC # 0.00 10 3/uL Normal 0-5 [facility] Comment on above: Order Comment: PFEM Performed By: #### L 500.2900, L400.0100, L100.0200 #### [facility] [address] [place], [address] Nucleated RBC (Bld) [#/Vol] 0 10*3/uL Normal 0-5 [facility] Comment on above: Order Comment: PFEM Performed By: #### L 500.2900, L400.0100, L100.0200 #### [facility] [address] [place], [address] Platelet mean volume (Bld) [Entitic vol] 9.7 fL Normal 6.2-12.0 [facility] Comment on above: Order Comment: PFEM Performed By: #### L 500.2900, L400.0100, L100.0200 #### [facility] [address] [place], [address] Platelets (Bld) [#/Vol] 243 10*3/uL Normal 150-450 [facility] Comment on above: Order Comment: PFEM Performed By: #### L 500.2900, L400.0100, L100.0200 #### [facility] [address] [place], [address] RBC (Bld) [#/Vol] 4.48 10*6/uL Normal 4.2-5.4 [facility] Comment on above: Order Comment: PFEM Performed By: #### L 500.2900, L400.0100, L100.0200 #### [facility] [address] [place], [address] RDW SD 44.5 fl High 35.1-43.9 [facility] Comment on above: Order Comment: PFEM Performed By: #### L 500.2900, L400.0100, L100.0200 #### [facility] [address] [place], [address] WBC (Bld) [#/Vol] 6.1 10*3/uL Normal 4.4-11.0 [facility] Comment on above: Order Comment: PFEM Performed By: #### L 500.2900, L400.0100, L100.0200 #### [facility] [address] [place], [address] Employee Profileon 4 Albumin [Mass/Vol] 3.8 g/dL Normal 3.2-5.0 [facility] Comment on above: Order Comment: PFEM Performed By: #### L 500.2900, L400.0100, L100.0200 #### [facility] [address] [place], [address] Albumin/Globulin [Mass ratio] 1.1 {ratio} Normal 0.9-2.4 [facility] Comment on above: Order Comment: PFEM Performed By: #### L 500.2900, L400.0100, L100.0200 #### [facility] [address] [place], [address] ALK P 93 U/L Normal 45-117 [facility] Comment on above: Order Comment: PFEM Performed By: #### L 500.2900, L400.0100, L100.0200 #### [facility] [address] [place], [address] ALT [Catalytic activity/Vol] 19 U/L Normal 13-56 [facility] Comment on above: Order Comment: PFEM Performed By: #### L 500.2900, L400.0100, L100.0200 #### [facility] [address] [place], [address] AST [Catalytic activity/Vol] 15 U/L Normal 15-37 [facility] Comment on above: Order Comment: PFEM Performed By: #### L 500.2900, L400.0100, L100.0200 #### [facility] [address] [place], [address] Bilirubin [Mass/Vol] 0.80 mg/dL Normal 0.20-1.00 [facility] Comment on above: Order Comment: PFEM Result Comment: For patients on eltrombopag therapy, use of Dimension [place] TBIL is not recommended. Performed By: #### L 500.2900, L400.0100, L100.0200 #### [facility] [address] [place], [address] Bilirubin.direct [Mass/Vol] 0.14 mg/dL Normal 0.00-0.30 [facility] Comment on above: Order Comment: PFEM Performed By: #### L 500.2900, L400.0100, L100.0200 #### [facility] [address] [place], [address] BUN/CRE 20.3 RATIO High 10-20 [facility] Comment on above: Order Comment: PFEM Performed By: #### L 500.2900, L400.0100, L100.0200 #### [facility] [address] [place], [address] CA,Total 9.7 mg/dL Normal 8.5-10.1 [facility] Comment on above: Order Comment: PFEM Performed By: #### L 500.2900, L400.0100, L100.0200 #### [facility] [address] [place], [address] Chloride [Moles/Vol] 107 mmol/L Normal 98-107 [facility] Comment on above: Order Comment: PFEM Performed By: #### L 500.2900, L400.0100, L100.0200 #### [facility] [address] [place], [address] CHOL:HDL 2.40 Normal [facility] Comment on above: Order Comment: PFEM Performed By: #### L 500.2900, L400.0100, L100.0200 #### [facility] [address] [place], [address] Cholesterol [Mass/Vol] 234 mg/dL High 200 [facility] Comment on above: Order Comment: PFEM Result Comment: <200 mg/dL Desirable 200-240 mg/dL Borderline >240 mg/dL High Risk Performed By: #### L 500.2900, L400.0100, L100.0200 #### [facility] [address] [place], [address] Cholesterol in HDL [Mass/Vol] 96 mg/dL Normal [facility] Comment on above: Order Comment: PFEM Result Comment: The drugs N-Acetylcysteine and Metamizole may falsely depress this assay. Reference Range HDL <40 mg/dL Low HDL Cholesterol HDL >or= 60 mg/dL High HDL Cholesterol Performed By: #### L 500.2900, L400.0100, L100.0200 #### [facility] [address] [place], [address] Cholesterol in LDL [Mass/Vol] 127 mg/dL Normal 0-130 [facility] Comment on above: Order Comment: PFEM Performed By: #### L 500.2900, L400.0100, L100.0200 #### [facility] [address] [place], [address] Cholesterol in VLDL [Mass/Vol] 11 mg/dL Normal 5-40 [facility] Comment on above: Order Comment: PFEM Performed By: #### L 500.2900, L400.0100, L100.0200 #### [facility] [address] [place], [address] CO2 [Moles/Vol] 27.0 mmol/L Normal 21.0-32.0 [facility] Comment on above: Order Comment: PFEM Performed By: #### L 500.2900, L400.0100, L100.0200 #### [facility] [address] [place], [address] Creatinine [Mass/Vol] 0.89 mg/dL Normal 0.55-1.02 [facility] Comment on above: Order Comment: PFEM Result Comment: The validity of the calculated GFR GFRAA in patients over 70 years has not been determined. Clinical correlation is essential. Performed By: #### L 500.2900, L400.0100, L100.0200 #### [facility] [address] [place], [address] EST GFR - AA 83 mL/min Normal >60 [facility] Comment on above: Order Comment: PFEM Result Comment: Afri can Danish GFR Calc Performed By: #### L 500.2900, L400.0100, L100.0200 #### [facility] [address] [place], [address] GAP 6 Normal 5-15 [facility] Comment on above: Order Comment: PFEM Performed By: #### L 500.2900, L400.0100, L100.0200 #### [facility] [address] [place], [address] GFR/1.73 sq M.predicted among non-blacks MDRD (S/P/Bld) [Vol rate/Area] 68 mL/min/{1.73_m2} Normal >60 [facility] Comment on above: Order Comment: PFEM Result Comment: Non- GFR Calc Performed By: #### L 500.2900, L400.0100, L100.0200 #### [facility] [address] [place], [address] Globulin (S) [Mass/Vol] 3.4 g/dL Normal 2.2-4.2 [facility] Comment on above: Order Comment: PFEM Performed By: #### L 500.2900, L400.0100, L100.0200 #### [facility] [address] [place], [address] Glucose [Mass/Vol] 87 mg/dL Normal 74-106 [facility] Comment on above: Order Comment: PFEM Performed By: #### L 500.2900, L400.0100, L100.0200 #### [facility] [address] [place], [address] LDH 178 U/L Normal 84-246 [facility] Comment on above: Order Comment: PFEM Performed By: #### L 500.2900, L400.0100, L100.0200 #### [facility] [address] [place], [address] Phosphate [Mass/Vol] 3.8 mg/dL Normal 2.5-4.9 [facility] Comment on above: Order Comment: PFEM Performed By: #### L 500.2900, L400.0100, L100.0200 #### [facility] [address] [place], [address] Potassium [Moles/Vol] 4.4 mmol/L Normal 3.5-5.1 [facility] Comment on above: Order Comment: PFEM Performed By: #### L 500.2900, L400.0100, L100.0200 #### [facility] [address] [place], [address] Sodium [Moles/Vol] 140 mmol/L Normal 136-145 [facility] Comment on above: Order Comment: PFEM Performed By: #### L 500.2900, L400.0100, L100.0200 #### [facility] [address] [place], [address] T PROT 7.2 g/dL Normal 6.4-8.2 [facility] Comment on above: Order Comment: PFEM Performed By: #### L 500.2900, L400.0100, L100.0200 #### [facility] [address] [place], [address] Triglyceride [Mass/Vol] 55 mg/dL Normal [facility] Comment on above: Order Comment: PFEM Result Comment: The drugs N-Acetylcysteine and Metamizole may falsely depress this assay. Serum Triglycerides Reference Interval Normal <150 mg/dL Borderline high 150 - 199 mg/dL High 200 - 499 mg/dL Very High > or = 500 mg/dL Performed By: #### L 500.2900, L400.0100, L100.0200 #### [facility] [address] [place], [address] Urea nitrogen [Mass/Vol] 18 mg/dL Normal 7-18 [facility] Comment on above: Order Comment: PFEM Performed By: #### L 500.2900, L400.0100, L100.0200 #### [facility] [address] [place], [address] URIC 3.4 mg/dL Normal 2.6-6.0 [facility] Comment on above: Order Comment: PFEM Result Comment: The drugs N-Acetylcysteine and Metamizole may falsely depress this assay. Performed By: #### L 500.2900, L400.0100, L100.0200 #### [facility] [address] [place], [address] Urinalysis, Employeeon 06-27 BILIRUBIN URINE Normal Negative [facility] Comment on above: Order Comment: PFEM CLEAN CATCH Result Comment: NOT WANTED Performed By: #### L 500.2900, L400.0100, L100.0200 #### [facility] [address] [place], [address] Clarity (U) Normal Clear [facility] Comment on above: Order Comment: PFEM CLEAN CATCH Result Comment: NOT WANTED Performed By: #### L 500.2900, L400.0100, L100.0200 #### [facility] [address] [place], [address] Color (U) Normal Yellow [facility] Comment on above: Order Comment: PFEM CLEAN CATCH Result Comment: NOT WANTED Performed By: #### L 500.2900, L400.0100, L100.0200 #### [facility] [address] [place], [address] GLUCOSE, UR Normal Normal [facility] Comment on above: Order Comment: PFEM CLEAN CATCH Result Comment: NOT WANTED Performed By: #### L 500.2900, L400.0100, L100.0200 #### [facility] [address] [place], [address] KETONE UR Normal Negative [facility] Comment on above: Order Comment: PFEM CLEAN CATCH Result Comment: NOT WANTED Performed By: #### L 500.2900, L400.0100, L100.0200 #### [facility] [address] [place], [address] LEUK ESTERASE Normal Negative [facility] Comment on above: Order Comment: PFEM CLEAN CATCH Result Comment: NOT WANTED Performed By: #### L 500.2900, L400.0100, L100.0200 #### [facility] [address] [place], [address] Nitrite Ql (U) Normal Negative [facility] Comment on above: Order Comment: PFEM CLEAN CATCH Result Comment: NOT WANTED Performed By: #### L 500.2900, L400.0100, L100.0200 #### [facility] [address] [place], [address] OCCULT BLOOD-UR Normal Negative [facility] Comment on above: Order Comment: PFEM CLEAN CATCH Result Comment: NOT WANTED Performed By: #### L 500.2900, L400.0100, L100.0200 #### [facility] [address] [place], [address] pH UR Normal 5.0 - 8.0 [facility] Comment on above: Order Comment: PFEM CLEAN CATCH Result Comment: NOT WANTED Performed By: #### L 500.2900, L400.0100, L100.0200 #### [facility] [address] [place], [address] PROT DIPSTX Normal Negative [facility] Comment on above: Order Comment: PFEM CLEAN CATCH Result Comment: NOT WANTED Performed By: #### L 500.2900, L400.0100, L100.0200 #### [facility] [address] [place], [address] SP.GR. DIPSTX Normal 1.002-1.030 [facility] Comment on above: Order Comment: PFEM CLEAN CATCH Result Comment: NOT WANTED Performed By: #### L 500.2900, L400.0100, L100.0200 #### [facility] [address] [place], [address] UR Preservative Normal [facility] Comment on above: Order Comment: PFEM CLEAN CATCH Result Comment: NOT WANTED Performed By: #### L 500.2900, L400.0100, L100.0200 #### [facility] [address] [place], [address] UROBILI Normal Normal [facility] Comment on above: Order Comment: PFEM CLEAN CATCH Result Comment: NOT WANTED Performed By: #### L 500.2900, L400.0100, L100.0200 #### [facility] [address] [place], [address] Bacteria Ur Culton 3 Bacteria identified Cx Nom (U) ORGANISM ID: 1 <10,000 CFU/ml Lactose positive gram negative bacilli Insignificant colony count. No further workup. Normal [facility] Comment on above: Performed By: #### 6 30-4 #### [facility] CLIA [id number] [address] [place] [address] [place] CNOVon 11-09-2022 CNOV Office Visit ([facility] ) VICTORINA GLORIA ([id number]) 1960 F Date Time Provider Department 11/09/22 7:30 PM MARLEEN LEON [facility] During your visit today, we recorded [...] expected course of illness Marleen Leon APRN.CNP [facility] PATIENT INFO BLADDER INFECTION OVERVIEW [...] of antibiotics. The typical drugs chosen are: trimethoprim-sulfameth oxazole (Bactrim?), nitrofurantoin (Macrobid?), ciprofloxacin (Cipro?) or levofloxacin [...] urethra (phen (more content not included)... Normal [facility] UA DIP, URINE (POC)on 2022 BILIRUBIN UA (POCT) Negative Negative [facility] CLARITY UA (POCT) Slightly Cloudy Cl [facility] COLOR UA (POCT) Yellow [facility] GLUCOSE UA (POCT) Negative Negative mg/dL [facility] HEMOGLOBIN/BLOOD UA (POCT) Large Abnormal Negative [facility] KETONE UA (POCT) Negative Negative mg/dL [facility] LEUKOCYTES UA (POCT) Moderate Abnormal Negative [facility] NITRITE UA (POCT) Negative Negative [facility] PH UA (POCT) 7.0 4.5 - 8.0 [facility] Protein Ql (U) 100 mg/dL Abnormal Negative mg/dL [facility] SPECIFIC GRAVITY UA (POCT) 1.020 1.005 - 1.030 [facility] UROBILINOGEN UA (POCT) 0.2 E.U./dL Normal E.U./dL [facility] No Panel Informationon 09-01 Thyroid Stimulating Hormone (TSH) 15.00 uIU/mL 0.358-3.74 [facility] Work Phone: CNOVon 08-27-2022 CNOV Office Visit ([facility] ) VICTORINA GLROIA ([id number]) 1960 F Date Time Provider Department 08/27/22 2:15 PM MARY ROJO [facility] During your visit today, we recorded the following information about you: Temperature Pulse Respiration Blood pressure 97.8 degrees 81/minute 16/minute 128/80 Weight 67.2 kg Mary Rojo APRN.CNP 08/27/2022 2:42 PM Signed CC: Patient presents with: Ear Problem: Left ear feels plugged HPI: Victorina Holland Faizan is a 62 year old female who [...] LEEP-Cervix LEFT WRIST CARPAL TUNNEL ONLY 06/11/2016 [facility] PAST SURGICAL HISTORY OF laser surgery in [...] stomach. (Patient not taking: Reported on 08/27/2022) Phenylephrine-Acetamin ophen-GG (TYLENOL COLD HEAD CONGEST SEVR) 5-325-200 mg tab Take 1 Dose by mouth as directed. (Patient not taking: Reported on 06/16/2018 ) FAMILY HISTORY Problem Relation Age of Onset None Mother None Father Diabetes Maternal Grandmother in 60's from [place] None Brother Coronary Artery Disease Brother [place] age 43 other (suicide) Brother 24 Social [...] INSTRUMENTATION [6921 (more content not included)... Normal [facility] Absolute lymphocyte counton 06-25-2022 Lymphocytes Auto (Unsp spec) [#/Vol] 1.01 10*3/uL 0.83-4.51 [facility] Work Phone: Absolute reticulocyte counto n 06-25-2022 Reticulocytes (Bld) [#/Vol] 0.00 10*3/uL 0-5 [facility] Work Phone: Basophil percentageon 2021 Basophil percentage 3.5 mg/dL 2.5-4.9 [facility] Work Phone: Bilirubin [Mass/Vol] 0.40 mg/dL 0.20-1.00 [facility] Work Phone: Comment on above: For patients on eltr ombopag therapy, use of Dimension [place] TBIL is not recommended. Chloride [Moles/Vol] 106 mmol/L 98-107 [facility] Work Phone: Cholesterol [Mass/Vol] 253 mg/dL <200 [facility] Work Phone: Comment on above: <200 mg/dL Desirable 200-240 mg/dL Borderline >240 mg/dL High Risk Glucose [Mass/Vol] 78 mg/dL 74-106 [facility] Work Phone: Neutrophils (Bld) [#/Vol] 4.6 10*3/uL 2.0-7.7 [facility] Work Phone: Potassium [Moles/Vol] 4.0 mmol/L 3.5-5.1 [facility] Work Phone: Protein [Mass/Vol] 7.5 g/dL 6.4-8.2 [facility] Work Phone: Sodium [Moles/Vol] 143 mmol/L 136-145 [facility] Work Phone: Triglyceride [Mass/Vol] 68 mg/dL <199 [facility] Work Phone: Comment on above: The drugs N-Acetylcy steine and Metamizole may falsely depress this assay.Serum Triglycerides Reference Interval Normal <150 mg/dL Borderline high 150 - 199 mg/dL High 200 - 499 mg/dL Very High > or = 500 mg/dL WBC (Bld) [#/Vol] 6.4 10*3/uL 4.4-11.0 [facility] Work Phone: Blood erythrocytes count (nu mber/volume)on 06-25-2022 RBC (Bld) [#/Vol] 4.45 10*6/uL 4.2-5.4 [facility] [place] [place] Work Phone: Blood hemoglobin measurement (mass/volume)on 06-25-2022 Hemoglobin (Bld) [Mass/Vol] 14.6 g/dL 12.0-15.0 [facility] Work Phone: Blood platelet mean volumeon 06-25-2022 Platelet mean volume (Bld) [Entitic vol] 9.3 fL 6.2-12.0 [facility] Work Phone: Determination of erythrocyte mean corpuscular volume (MCV)on 06-25-2022 MCV (RBC) [Entitic vol] 95.7 fL 81-99 [facility] Work Phone: Direct bilirubinon Bilirubin.direct [Mass/Vol] 0.09 mg/dL 0.00-0.30 [facility] Work Phone: Hematocrit Auto (Bld) [Volum e fraction]on 06-25-2022 Hematocrit (Bld) [Volume fraction] 42.6 % 37-47 [facility] Work Phone: Laboratory - Chemistry and C hemistry - challengeon 06-25-2022 ALP [Catalytic activity/Vol] 91 U/L 45-117 [facility] Work Phone: ALT [Catalytic activity/Vol] 19 U/L 13-56 [facility] Work Phone: Cholesterol.total/C holesterol in HDL [Mass ratio] 2.70 {ratio} [facility] Work Phone: CO2 [Moles/Vol] 30.0 mmol/L 21.0-32.0 [facility] Work Phone: Free T4 [Mass/Vol] 0.86 ng/dL 0.76-1.46 [facility] Work Phone: Globulin (S) [Mass/Vol] 3.7 g/dL 2.2-4.2 [facility] Work Phone: Urea nitrogen/Creatinine [Mass ratio] 15.2 mg/mg 10-20 [facility] Work Phone: Laboratory - Hematology and Cell countson 06-25-2022 Erythrocyte distribution width (RBC) [Entitic vol] 46.0 fL 35.1-43.9 [facility] Work Phone: Erythrocyte distribution width (RBC) [Ratio] 13.0 % 11.6-14.6 [facility] Work Phone: MCH (RBC) [Entitic mass] 32.8 pg 27.0-32.0 [facility] Work Phone: Nucleated RBC/100 WBC (Bld) [Ratio] 0 % 0-5 [facility] Work Phone: MCHC Auto (RBC) [Mass/Vol]on 06-25-2022 MCHC (RBC) [Mass/Vol] 34.3 g/dL 32-36 [facility] Work Phone: No Panel Informationon 06-25 Estimated GFR (MDRD) Amer 73 mL/min >60 [facility] Work Phone: Comment on above: GFR Calc Estimated GFR (MDRD) Non-Af Amer 61 mL/min >60 [facility] Work Phone: Comment on above: Non- GFR Calc Thyroid Stimulating Hormone (TSH) 27.30 uIU/mL 0.358-3.74 [facility] Work Phone: Platelets bldon 06-25-2022 Platelets (Bld) [#/Vol] 223 10*3/uL 150-450 [facility] Work Phone: Segmented neutrophils/100 WB C Auto (Bld)on 06-25-2022 Segmented neutrophils/100 WBC (Bld) 71.9 % 47-70 [facility] Work Phone: Serum or plasma albumin massimo urement (mass/volume)on 06-25-2022 Albumin [Mass/Vol] 3.8 g/dL 3.2-5.0 [facility] Work Phone: Serum or plasma albumin/glob ulin mass ratioon 06-25-2022 Albumin/Globulin [Mass ratio] 1.0 {ratio} 0.9-2.4 [facility] Work Phone: Serum or plasma calcium massimo urement (mass/volume)on 06-25-2022 Calcium [Mass/Vol] 9.0 mg/dL 8.5-10.1 [facility] Work Phone: Serum or plasma cholesterol in HDL measurement (mass/volume)on 06-25-2022 Cholesterol in HDL [Mass/Vol] 95 mg/dL >40 [facility] Work Phone: Comment on above: The drugs N-Acetylcy steine and Metamizole may falsely depress this assay. Reference Range HDL <40 mg/dL Low HDL Cholesterol HDL >or= 60 mg/dL High HDL Cholesterol Serum or plasma cholesterol in VLDL measurement (mass/volume)on 06-25-2022 Cholesterol in VLDL [Mass/Vol] 14 mg/dL 5-40 [facility] Work Phone: Serum or plasma creatinine m easurement (mass/volume)on 06-25-2022 Creatinine [Mass/Vol] 0.99 mg/dL 0.55-1.02 [facility] Work Phone: Comment on above: The validity of the calculated GFR & GFRAA in patients over 70 years has not been determined. Clinical correlation is essential. Serum or plasma low density lipoprotein (LDL) cholesterol measurement (mass/volume)on 06-25-2022 Cholesterol in LDL [Mass/Vol] 144 mg/dL 0-130 [facility] Work Phone: Serum or plasma urea nitroge n measurement (mass/volume)on 06-25-2022 Urea nitrogen [Mass/Vol] 15 mg/dL 7-18 [facility] Work Phone: Serum or plasma uric acid me asurement (mass/volume)on 06-25-2022 Urate [Mass/Vol] 3.4 mg/dL 2.6-6.0 [facility] Work Phone: Comment on above: The drugs N-Acetylcy steine and Metamizole may falsely depress this assay. Thin prep Papanicolaou smear with manual screeningon 06-25-2022 Thin prep Papanicolaou smear with manual screening 20 U/L 15-37 [facility] Work Phone: Thin prep Papanicolaou smear with manual screening 7 5-15 [facility] Work Phone: Thin prep Papanicolaou smear with manual screening 185 U/L 84-246 [facility] Work Phone: CNOVon 03-28-2022 CNOV Office Visit (UCWSTR ) VICTORINA GLORIA ([id number]) 1960 F Date Time Provider Department 03/28/22 2:30 PM MARY ROJO [facility] During your visit today, we recorded the following information about you: Temperature Pulse Respiration Blood pressure 97.8 degrees 85/minute 21/minute 132/68 Weight 65.3 kg Mary Rojo APRN.TAFE TEACHER 03/28/2022 2:38 PM Signed Subjective Patient came [...] - LEFT WRIST CARPAL TUNNEL ONLY 06/11/2016 [facility] - PAST SURGICAL HISTORY OF laser surgery [...] muscle spasm for up to 10 days. Phenylephrine-Acetamin ophen-GG (TYLENOL COLD HEAD CONGEST SEVR) 5-325-200 mg tab Take 1 Dose by mouth as directed. FAMILY HISTORY Problem Relation Age of Onset - None Mother - None Father - Diabetes Maternal Grandmother in 60's from [place] - None Brother - Coronary Artery Disease Brother [place] age 43 - other (suicide) Brother 24 [...] Patient was okay with this care plan. DILMA Bautista APRN.CNP 03/28/2022 2:40 PM Signed Addended by: MARY ROJO on: 03/28/2022 02:40 PM Modules accepted: Orders Referring Provider: SELF [200] Allergies As of Date: 03/28/2022 (No Known Allergies) Date Reviewed: 03/28/2022 Reviewed by: Eulalia Galeana MA - Fully Assessed Reason for Visit: Back Pain [12] Cmt: back spasms x 3.5 weeks Primary Visit Diagnosis:Back spasm [M62.830] Order(s):cyclobenzapri ne (FLEXERIL) 10 mg tabletTake 0.5 tablets by [...] ON WEDNESDAY, WEDNESDAY, WEDNESDAY AND WEDNESDAY - Phenylephrine-Acetamin ophen-GG (TYLENOL (more content not included)... Normal [facility] Vital Signs Date Time Vital Sign Value Performing Clinician Higinioi meli 11-09-2022 19:14-0500 Body temperature 96.91 [degF] Marleen Leon APRN.CNP Work Phone: [facility] 11-09-2022 19:14-0500 Body weight 68.49 kg Marleen Leon APRN.CNP Work Phone: [facility] 11-09-2022 19:14-0500 Diastolic blood pressure 74 mm[Hg] Marleen Praisler-Wood CLINICAL RECRUITER.TAFE TEACHER Work Phone: [facility] 11-09-2022 19:14-0500 Heart rate 80 /min Marleen Praisler-Wood CLINICAL RECRUITER.TAFE TEACHER Work Phone: [facility] 11-09-2022 19:14-0500 Respiratory rate 16 /min Marleen Praisler-Wood CLINICAL RECRUITER.TAFE TEACHER Work Phone: [facility] 11-09-2022 19:14-0500 SaO2% (BldA) [Mass fraction] 98 % Marleen Praisler-Wood CLINICAL RECRUITER.TAFE TEACHER Work Phone: [facility] 11-09-2022 19:14-0500 Systolic blood pressure 126 mm[Hg] Marleen Praisler-Wood CLINICAL RECRUITER.TAFE TEACHER Work Phone: [facility] 08-27-2022 14:19-0500 Body temperature 97.81 [degF] Mary Rojo CLINICAL RECRUITER.TAFE TEACHER Work Phone: [facility] 08-27-2022 14:19-0500 Body weight 67.22 kg Mary Rojo APRN.TAFE TEACHER Work Phone: [facility] 08-27-2022 14:19-0500 Diastolic blood pressure 80 mm[Hg] Mary Rojo CLINICAL RECRUITER.TAFE TEACHER Work Phone: [facility] 08-27-2022 14:19-0500 Heart rate 81 /min Mary Rojo CLINICAL RECRUITER.TAFE TEACHER Work Phone: [facility] 08-27-2022 14:19-0500 Respiratory rate 16 /min Mary Rojo CLINICAL RECRUITER.TAFE TEACHER Work Phone: [facility] 08-27-2022 14:19-0500 SaO2% (BldA) [Mass fraction] 99 % Mary Rojo CLINICAL RECRUITER.TAFE TEACHER Work Phone: [facility] 08-27-2022 14:19-0500 Systolic blood pressure 128 mm[Hg] Mary Rojo CLINICAL RECRUITER.TAFE TEACHER Work Phone: [facility] 03-28-2022 14:26-0400 Body temperature 97.81 [degF] Mary Rojo APRN.TAFE TEACHER Work Phone: [facility] 03-28-2022 14:26-0400 Body weight 65.32 kg Mary Rojo APRN.TAFE TEACHER Work Phone: [facility] 03-28-2022 14:26-0400 Diastolic blood pressure 68 mm[Hg] Mary Rojo APRN.TAFE TEACHER Work Phone: [facility] 03-28-2022 14:26-0400 Heart rate 85 /min Mary Rojo APRN.TAFE TEACHER Work Phone: [facility] 03-28-2022 14:26-0400 Respiratory rate 21 /min Mary Rojo APRN.TAFE TEACHER Work Phone: [facility] 03-28-2022 14:26-0400 SaO2% (BldA) [Mass fraction] 98 % Mary Rojo APRN.TAFE TEACHER Work Phone: [facility] 03-28-2022 14:26-0400 Systolic blood pressure 132 mm[Hg] Mary Rojo APRN.TAFE TEACHER Work Phone: [facility] Encounters Encounter Date Encounter Type Care Provider Facility Start: 05-29-2025 ambulatory [facility] Facility: [facility] Start: 08-15-2024 Encounter for gynecological examination (general) (routine) with abnormal findings Rae Hutton NP [facility] Start: 08-15-2024 End: 08-15-2024 ambulatory Tanya Mied Facility:[facility] Start: 08-15-2024 End: 08-15-2024 ambulatory [facility] Facility:[facility] Start: 07-25-2024 End: 07-25-2024 ambulatory [facility] Facility:[facility] Start: 2024 End: 06-28-2024 ambulatory [facility] Facility:[facility] Start: 05-18-2023 End: 05-18-2023 ambulatory [facility] Work Phone: Start: 05-18-2023 End: 05-18-2023 Patient encounter procedure [facility]Out[facility] Breast [facility] Work Phone: Start: 11-09-2022 End: 11-09-2022 ambulatory TANYA E DEEOSMAREL Facility:[facility] Start: 11-09-2022 End: 11-09-2022 Patient encounter procedure Marleen Leon APRN.TAFE TEACHER Work Phone: [facility] Comment on above: Urinary frequency (P rimary Dx); Gross hematuria Start: 09-01-2022 End: 09-01-2022 ambulatory [facility] Work Phone: Start: 09-01-2022 End: 09-01-2022 Patient encounter procedure [facility]Laboratory Start: 08-27-2022 End: 08-27-2022 ambulatory [facility] Facility:[facility] Start: 08-27-2022 End: 08-27-2022 Patient encounter procedure Mary Rojo APRN.TAFE TEACHER Work Phone: [facility] Comment on above: Impacted cerumen of left ear (Primary Dx) Start: 06-25-2022 End: 06-25-2022 Patient encounter procedure [facility]Laboratory, Specimen Start: 06-25-2022 Registered Referred [facility] Start: 03-28-2022 End: 03-28-2022 ambulatory REN Gemma CEBUL III Facility:[facility] Start: 03-28-2022 End: 03-28-2022 Patient encounter procedure Mary Rojo APRN.TAFE TEACHER Work Phone: [facility] Comment on above: Back spasm (Primary Dx) Start: 03-26-2022 End: 03-26-2022 Patient encounter procedure [facility]-Radiology, [facility] Procedures Date Procedure Procedure Detail Performing Clinician Start: 05-18-2023 Screening mammography Start: 11-09-2022 Urnls dip stick/tabl et rgnt auto w/o microscopy Marleen Leon APRN.TAFE TEACHER Work Phone: Start: 03-26-2022 X-ray of lumbosacral spine Start: 02-01-2018 Colonoscopy Mary Rojo APRN.LOI Work Phone: Start: 06-14-2017 Adult depression scr eening assessment Mary Rojo APRN.LOI Work Phone: Start: 07-16-2016 Mammography Mary Rojo APRN.LOI Work Phone: Plan of Treatment Date Care Activity Detail Author Start: 06-21-2024 LIPID SCREEN LIPID SCREEN [facility] Start: 10-26-2022 HPV TESTING HPV TESTING [facility] Start: 10-26-2022 PAP TESTING PAP TESTING [facility] Start: 09-27-2022 DEPRESSION ASSESSMENT DEPRESSION ASS ESSMENT [facility] Start: 06-22-2022 DIABETES SCREEN DIABETES SCREEN [facility] Start: 05-28-2022 Influenza vaccination INFLUENZA (#1) [facility] Start: 04-22-2022 Urine microalbumin profile DTAP,TDAP,TD (2 - Td or Tdap) [facility] Start: 09-27-2021 DEPRESSION ASSESSMENT DEPRESSION ASS ESSMENT [facility] Start: 05-30-2021 ANNUAL PCP TEAM SLUG PRESS OPERATOR ELLE DISEASE VISIT ANNUAL PCP TEAM CHRONIC DISEASE VISIT [facility] Start: 04-11-2021 COVID-19 VACCINE (3 - Booster for Moderna series) COVID-19 VACCINE (3 - Booster for Moderna series) [facility] Start: 01-07-2021 COVID-19 VACCINE (3 - Booster for Moderna series) COVID-19 VACCINE (3 - Booster for Moderna series) [facility] Start: 02-01-2019 Colonoscopy COLONOSCOPY [facility] Start: 02-01-2019 COLORECTAL CANCER SCREENING COLORECTAL CANCER SCREENING [facility] Start: 06-14-2018 Adult depression screening assessment DEPRESSION SCREENING [facility] Start: 07-16-2017 Mammography MAMMOGRAM [facility] Start: 2011 SHINGRIX VACCINE (1 of 2) NICK GRIX VACCINE (1 of 2) [facility] Start: 2006 COLOGUARD (FIT-DNA) COLOGUARD (FIT-D NA) [facility] Start: [address] COLONOGRAPHY [facility] Start: 2006 FECAL OCCULT BLOOD FECAL OCCULT BLOO D [facility] Start: 2006 SIGMOIDOSCOPY SIGMOIDOSCOPY [facility] Start: 1979 HEPATITIS C SCREENING HEPATITIS C JEROME PRISCILLA [facility] Start: 1979 HIV SCREENING HIV SCREENING [facility] Bacteria identified in Urine by Culture URINE CULTURE Microbiology Routine Urinary frequency Gross hematuria 11/09/2022 7:[address] [facility] Work Phone: Removal impacted cer umen instrumentation unilat REMOVAL OF IMPACTED CERUMEN - INSTRUMENTATION Procedures Routine Impacted cerumen of left ear Ordered: 08/27/2022 [facility] Work Phone: Comment on above: Ordered: 08/27/2022 Immunizations Immunization Date Immunization Notes Care Provider Rene su 07-20-2022 influenza, seasonal, injectable [facility] 07-14-2021 influenza, seasonal, injectable [facility] 11-12-2020 Covid (Moderna) [facility] 10-15-2020 Covid (Moderna) [facility] 07-03-2020 influenza, seasonal, injectable [facility] 07-31-2019 influenza, seasonal, injectable [facility] 07-27-2018 influenza, seasonal, injectable [facility] 06-25-2016 influenza, seasonal, injectable [facility] 06-26-2015 influenza, seasonal, injectable [facility] 06-04-2014 influenza, seasonal, [facility] 04-22-2012 tetanus toxoid, redu crsitiano diphtheria toxoid, and acellular pertussis vaccine, adsorbed Mary Rojo APRN.[facility] Work Phone: [facility] Work Phone: 12-24-1992 hepatitis B immune globulin Mary Rojo APRN.TAFE TEACHER Work Phone: [facility] Work Phone: 06-26-1992 hepatitis B immune globulin Mary Rojo APRN.TAFE TEACHER Work Phone: [facility] Work Phone: 01-25-1992 hepatitis B immune globulin Mary Rojo APRN.[facility] Work Phone: [facility] Work Phone: Payers Date Payer Category Payer Self-pay [id number] 2022 Private Health Insurance MIREYA MICHEL Stellarcasa SA [id number] 2022-Present [phone] [address] [place] [address] PPO [id number] 2022 Private Health Insurance [id number] 2019 Unknown MMO MMO TPA [id number] 2019-Present [address] [place] [address] PPO [id number] 2019 Unknown MMO MMO TPA [id number] 2019-Present [address] [place] [address] PPO [id number] 2015 Unknown [id number] Unknown [id number] Unknown [id number] 62 Unknown [id number] 62 Unknown [id number] 62 Unknown [id number] 62 Unknown [id number] 62 Social History Date Type Detail Facility Start: 06-28-2012 Tobacco smoking status INIS Never smoked tobacco [facility] Start: 03-28-2022 End: 11-09-2022 Alcohol intake Current drinker of alcohol (finding) [facility] Start: 06-28-2012 History SDOH Alcohol Comment occasionally 6 per year [facility] Start: 1960 Sex Assigned At Not on file C [facility] Start: 03-18-2022 End: 08-27-2022 Exposure to SARS-CoV-2 (event) Not sure [facility] Start: 09-10-2021 End: 09-10-2021 Tobacco smoking status NHIS Unknown if ever smoked [facility] Start: 1960 Sex Assigned At Female [facility] Start: 06-28-2012 Tobacco use and exposure Smokeless tobacco non-user [facility] Work Phone: Clinical Notes 03-05-2016 to 11-09-2022 Marleen Leon APRN.TAFE TEACHER - 11/09/2022 7:43 PM ESTPatient Emmy Benavides DISCHARGE PLANNER - 08/27/2022 2:46 PM GRACIEDommanuela Rojo APRN.TAFE TEACHER - 08/27/2022 2:24 PM EST Note Date & Type Note Facility 11-09-2022 Note HNO ID: [id number] Author: Marleen Leon APRN.[facility] Service: ? Author Type: Nurse Practitioner Type: [...] LEEP-Cervix LEFT WRIST CARPAL TUNNEL ONLY 06/11/2016 [facility] PAST SURGICAL HISTORY OF laser surgery in [...] stomach. (Patient not taking: Reported on 08/27/2022) Tskwvpbjhvmsq-Oxdmkpagzdltr-GU (TYLENOL COLD HEAD CONGEST SEVR) 5-325-200 mg tab Take 1 Dose by mouth as directed. (Patient not taking: Reported on 06/16/2018 ) FAMILY HISTORY Problem Relation Age of Onset None Mother None Father Diabetes Maternal Grandmother in 60's from [place] None Brother Coronary Artery Disease Brother [place] age 43 other (suicide) Brother 24 Social [...] Discussed expected course of illness Marleen Leon APRN.[facility] 11-09-2022 History of Presen t illness [...] LEEP-Cervix LEFT WRIST CARPAL TUNNEL ONLY 06/11/2016 [facility] PAST SURGICAL HISTORY OF laser surgery in [...] stomach. (Patient not taking: Reported on 08/27/2022) Wkyglhkmlnuie-Iadbeismhtgaw-OP (TYLENOL COLD HEAD CONGEST SEVR) 5-325-200 mg tab Take 1 Dose by mouth as directed. (Patient not taking: Reported on 06/16/2018 ) FAMILY HISTORY Problem Relation Age of Onset None Mother None Father Diabetes Maternal Grandmother in 60's from [place] None Brother Coronary Artery Disease Brother [place] age 43 other (suicide) Brother 24 Social [...] Marleen Leon APRN.CNP documented in this encounter [facility] 11-09-2022 Instructions Marleen Leon APRN.CNP - 11/09/2022 [...] Discussed expected course of illness Marleen Leon APRN.[facility] CARE PATIENT INFO BLADDER INFECTION OVERVIEW [...] have an infection. documented in this encounter [facility] 08-27-2022 Note HNO ID: [id number] Author: Daisha Benavides LPN Service: ? Author [...] assessed by HENRIQUE Rojo. Daisha Benavides LPN [facility] 08-27-2022 Note HNO ID: [id number] Author: Mary Rojo APRN.TAFE TEACHER Service: ? Author Type: Nurse Practitioner Type: [...] LEEP-Cervix LEFT WRIST CARPAL TUNNEL ONLY 06/11/2016 [facility] PAST SURGICAL HISTORY OF laser surgery in 1988 on Cx PAST SURGICAL HISTORY OF 1989 laser of biopsy in her s THYROIDECTOMY TOTAL/COMPLETE 08/08/2010 benign thyroid nodules ALLERGIES [...] stomach. (Patient not taking: Reported on 08/27/2022) Swgozmplhbyjq-Treovkayfedqj-ZG (TYLENOL COLD HEAD CONGEST SEVR) 5-325-200 mg tab Take 1 Dose by mouth as directed. (Patient not taking: Reported on 06/16/2018 ) FAMILY HISTORY Problem Relation Age of Onset None Mother None Father Diabetes Maternal Grandmother in 60's from [place] None Brother Coronary Artery Disease Brother [place] age 43 other (suicide) Brother 24 Social [...] Patient agreeable to treatment plan. Mary Rojo APRN.[facility] 08-27-2022 History of Presen t illness Narrative Ambulatory Ear Lavage Pre-treatment: Warm water Treatment: Both ears Equipment and Irrigation solution and Volume used: Single use syringe with single use irrigation tip Water Return flow appearance: Brown Patient tolerated procedure: yes Post-treatment: Post Irrigation Post-treatment: Ear Canal/Tympanic membrane assessed by HENRIQUE Rojo. Daisha Benavides LPN CC: Patient presents [...] LEEP-Cervix LEFT WRIST CARPAL TUNNEL ONLY 06/11/2016 [facility] PAST SURGICAL HISTORY OF laser surgery in 1988 on Cx PAST SURGICAL HISTORY OF 1989 laser of biopsy in her s THYROIDECTOMY TOTAL/COMPLETE 08/08/2010 benign thyroid nodules ALLERGIES [...] stomach. (Patient not taking: Reported on 08/27/2022) Zzxkbrfaficly-Puqprhrcgiypl-ZL (TYLENOL COLD HEAD CONGEST SEVR) 5-325-200 mg tab Take 1 Dose by mouth as directed. (Patient not taking: Reported on 06/16/2018 ) FAMILY HISTORY Problem Relation Age of Onset None Mother None Father Diabetes Maternal Grandmother in 60's from [place] None Brother Coronary Artery Disease Brother [place] age 43 other (suicide) Brother 24 Social [...] Patient agreeable to treatment plan. Mary Rojo APRN.TAFE TEACHER documented in this encounter [facility] 03-28-2022 Note HNO ID: [id number] Author: Mary Rojo APRN.[facility] Service: ? Author [...] muscle spasm for up to 10 days. Ohvnmxezlewae-Zqkqvklumcwnk-JN (TYLENOL COLD HEAD CONGEST SEVR) 5-325-200 mg tab Take 1 Dose by mouth as directed. FAMILY HISTORY Problem Relation Age of Onset - None Mother - None Father - Diabetes Maternal Grandmother in 60's from [place] - None Brother - Coronary Artery Disease Brother [place] age 43 - other (suicide) Brother 24 [...] okay with this care plan. Mary Rojo APRN.[facility] 03-28-2022 Miscellaneous Notes Addended by: MARY ROJO on: 03/28/2022 02:40 PM Modules accepted: Orders documented in this encounter [facility] 03-28-2022 History of Presen t illness Narrative [...] LEEP-Cervix LEFT WRIST CARPAL TUNNEL ONLY 06/11/2016 [facility] PAST SURGICAL HISTORY OF laser surgery in [...] muscle spasm for up to 10 days. Rtzuaibjiuglw-Tdxbvlxjnlpzv-EI (TYLENOL COLD HEAD CONGEST SEVR) 5-325-200 mg tab Take 1 Dose by mouth as directed. FAMILY HISTORY Problem Relation Age of Onset None Mother None Father Diabetes Maternal Grandmother in 60's from [place] None Brother Coronary Artery Disease Brother [place] age 43 other (suicide) Brother 24 Social [...] Mary Rojo APRN.LOI documented in this encounter [facility] 03-05-2016 History of Past i llness Narrative Problem Noted Date Resolved Date Carpal tunnel syndrome, bilateral 03/05/2016 06/16/2018 Spondylosis of lumbar region without myelopathy or radiculopathy 01/02/2016 06/16/2018 Mild cervical dysplasia 06/11/2011 06/28/20 12 Medial epicondylitis 01/23/2011 04/19/2015 Vitamin D deficiency 12/25/2010 04/19/2015 Heart palpitations 10/31/2009 06/04/2016 Graves' disease 10/31/2009 06/04/2016 documented as of this encounter (statuses as of 03/28/2022) [facility] History of Past illness Narrative* Problem Noted Date Resolved Date Carpal tunnel syndrome, bilateral 03/05/2016 06/16/2018 Spondylosis of lumbar region without myelopathy or radiculopathy 01/02/2016 06/16/2018 Mild cervical dysplasia 06/11/2011 06/28/20 12 Medial epicondylitis 01/23/2011 04/19/2015 Vitamin D deficiency 12/25/2010 04/19/2015 Heart palpitations 10/31/2009 06/04/2016 Graves' disease 10/31/2009 06/04/2016 documented as of this encounter (statuses as of 08/27/2022) [facility] History of Past illness Narrative* Problem Noted Date Resolved Date Carpal tunnel syndrome, bilateral 03/05/2016 06/16/2018 Spondylosis of lumbar region without myelopathy or radiculopathy 01/02/2016 06/16/2018 Mild cervical dysplasia 06/11/2011 06/28/20 12 Medial epicondylitis 01/23/2011 04/19/2015 Vitamin D deficiency 12/25/2010 04/19/2015 Heart palpitations 10/31/2009 06/04/2016 Graves' disease 10/31/2009 06/04/2016 documented as of this encounter (statuses as of 11/10/2022) [facility] Diagnosis Back spasm- Primary Other symptoms referable to back documented in this encounter [facility] noteNo assessment information availableWDay[facility] Work Phone: Evaluation note* Diagnosis Impacted cerumen of left ear- Primary Impacted cerumen documented [facility] Diagnosis Urinary frequency- Primary Gross hematuria documented in this encounter [facility] Advance Directives No Advanced Directives Records Found Advance Directive Response Recorded Date/ Time Advance Directives No May 3:21pm Living Will No September 10, 2 021 12:34pm Power of Tire Servicer No September 10, 2021 12:34pm Advance Directive Response Recorded Date/ Time Advance Directives No May 2:21pm Living Will No September 10, 2 021 11:34am Power of Tire Servicer No September 10, 2021 11:34am Chief Complaint and Reason for Visit Chief Complaint EMPLOYEE HEALTH Chief Complaint SCREENING Summary Purpose Family History No Family History Records FoundNo Family History Records Found Additional Source Comments Source Comments (unrecognize d section and content) In the event this informatio n is protected by the Federal Confidentiality of Alcohol and Drug Abuse Patient Records regulations: The Federal rules restrict any use of the information to criminally investigate or prosecute any alcohol or drug abuse patient.[facility] the event this information is protected by the Federal Confidentiality of Alcohol and Drug Abuse Patient Records regulations: The Federal rules restrict any use of the information to criminally investigate or prosecute any alcohol or drug abuse patient.[facility] the event this information is protected by the Federal Confidentiality of Alcohol and Drug Abuse Patient Records regulations: The Federal rules restrict any use of the information to criminally investigate or prosecute any alcohol or drug abuse patient.[facility] Reason for Visit (unrecogniz ed section and content) Reason Comments Back Pain back spasms x 3.5 we eks Reason Comments Ear Problem Left ear feels plugg ed Reason Comments Urinary Frequency burning with urinati on and hematuria x 2 hours Care Teams (unrecognized sec tion and content) [employer] Coordinator Relationship Specialty Start Date End Date Ren Bustamante III, MD NO FORWARDING ADDRESS PCP - General 11/12/03 [employer] Coordinator Relationship Specialty Start Date End Date Tanya Miranda [address] [place] [address] PCP - General Family Medicine 08/27/22 [employer] Coordinator Relationship Specialty Start Date End Date Tanya Miranda MD [address] [place] [address] PCP - General Family Medicine 08/27/22 Team Status: Active Member Role Status Dates Dr. Ren Bustamante III, MD Family Provider Active Dr. Tanya Miranda MD Primary Care Provider Active Team Status: Inactive Member Role Status Dates Dr. Tanya Miranda MD Primary Care Prov ider, Attending Provider, Referring Provider Active Goals (unrecognized section and content) Goals may be documented in a n alternate sectionGoals may be documented in an alternate sectionGoals may be documented in an alternate section INFORMATION SOURCE (unrecogn ized section and content) DATE CREATED AUTHOR 11/12/2022 [facility] DATE CREATED AUTHOR AUTHOR'S ORGANIZ ATION 05/30/2025 [facility] FOR RECORDS PERTAINING TO PATIENTS WHO ARE [...] BE BASED ON THE PRIMARY CLINICAL RECORDS. [facility] [employer] provides no warranty or guarantee of the accuracy or completeness of information in this document.
--- OUTSIDE RECORDS SUMMARY | 2025-06-22 07:13 | XMS RPT_ITS | CCD ---
Author Organization [facility] Care Team Providers Care Locker Room Clerk Name Role Phone Dianna KAPADIA MD, Frank A Primary Care Provider Leatha vailable Tanya Miranda Primary Care Provider [phone] Tanya Miranda MD Primary Care Provider TANYA MIRANDA Primary Care Unavailable TANYA MIRANDA E Primary Care Unavailable REN BUSTAMANTE III Primary Care Unavailable Miosmarel, Tanya Primary Care Unavailable Miedel, Tanya Referring Unavailable Anni CHEMICAL ENGINEERING PROFESSOR, Rae Attending Unavailable Miedel, Tanya Primary Care Unavailable Anni CHEMICAL ENGINEERING PROFESSOR, Rae Referring Unavailable Anni CHEMICAL ENGINEERING PROFESSOR, Rae Attending Unavailable Miedel, Tanya Primary Care [...] Comment on above: Take 1 capsule by [facility] twice daily for 7 days. Completed/Discontinued [...] APTIMA 16/18,45on 08-22-2024 ADEQ Comment Normal . [facility] Comment on above: Order Comment: Speci men Comment: [id number] Specimen Comment: Source.............Cervix Specimen Comment: Other..............Post Menopausal Specimen Comment: No. of containers..01 ThinPrep Vial Result Comment: Sati sfactory for evaluation. Endocervical component may not be distinguished in cases of atrophy. Performed By: #### L 7400.0280 #### [facility] [address] [place], [place], [id number] COMM . Normal . [facility] Comment on above: Order Comment: Speci men Comment: [id number] Specimen Comment: Source.............Cervix Specimen Comment: Other..............Post Menopausal Specimen Comment: No. of containers..01 ThinPrep Vial Performed By: #### L 7400.0280 #### [facility] [address] [place], [place], [id number] COMMENT Comment Normal . [facility] Comment on above: Order Comment: Speci men Comment: [id number] Specimen Comment: Source.............Cervix Specimen Comment: Other..............Post Menopausal Specimen Comment: No. of containers..01 ThinPrep Vial Result Comment: This liquid based ThinPrep(R) pap test was screened with the use of an image guided system. Performed By: #### L 7400.0280 #### [facility] [address] [place], [place], [id number] DIAG Comment Normal . [facility] Comment on above: Order Comment: Speci men Comment: [id number] Specimen Comment: Source.............Cervix Specimen Comment: Other..............Post Menopausal Specimen Comment: No. of containers..01 ThinPrep Vial Result Comment: NEGA TIVE FOR INTRAEPITHELIAL LESION OR MALIGNANCY. CELLULAR CHANGES ASSOCIATED WITH ATROPHY ARE PRESENT. Performed By: #### L 7400.0280 #### [facility] [address] [place], [place], [address] HPV APTIMA, HR Negative Normal Negative [facility] Comment on above: Order Comment: Speci men Comment: [id number] Specimen Comment: Source.............Cervix Specimen Comment: Other..............Post Menopausal Specimen Comment: No. of containers..01 ThinPrep Vial Result Comment: This nucleic acid amplification test detects fourteen high- risk HPV types (16,18,31,33,35,39,45,51,52,56,58,59,66,68) without differentiation. Performed By: #### L 7400.0280 #### [facility] [address] [place], [address] HPV Rosina Rfx Comment Normal . [facility] Comment on above: Order Comment: Speci men Comment: [id number] Specimen Comment: Source.............Cervix Specimen Comment: Other..............Post Menopausal Specimen Comment: No. of containers..01 ThinPrep Vial Result Comment: Crit eria not met, HPV Genotype not performed. Performed at: - [facility] [id number] Fingerprint Technician: Mala Bejarano MD, Phone: [phone] Performed at: = - [facility] [id number] Fingerprint Technician: Mala Bejarano MD, Phone: [phone] Performed By: #### L 7400.0280 #### [facility] [address] [place], [place], [id number] PAPSMR Comment Normal . [facility] Comment on above: Order Comment: Speci men Comment: [id number] Specimen Comment: Source.............Cervix Specimen Comment: Other..............Post Menopausal [...] occur. Performed By: #### L 7400.0280 #### [facility] [address] [place], [address] PERFORM Comment Normal . [facility] Comment on above: Order Comment: Speci men Comment: [id number] Specimen Comment: Source.............Cervix Specimen Comment: Other..............Post Menopausal Specimen Comment: No. of containers..01 ThinPrep Vial Result Comment: Jada Resendiz, Light Technician (ASCP) Performed By: #### L 7400.0280 #### [facility] [address] [place], [place], [address] Regional Education Manager Office Visit Reporton 08-15-2024 Regional Education Manager Office Visit Report [facility] [address], [address] [place] [address] OFFICE VISIT Date of Service: 08/15/24 MR#: [id number] Acct: [id number] Name: VICTORINA GLORIA Rep #: [id number] : 1960 Provider: LIZZY carranza Age/Sex: 64/F [place] [facility] [place]: Signed Intake Vital Signs 07/14/24 13:39 08/15/24 09:02 08/15/24 09:06 Height 5 ft 6 in 5 ft 6 in 5 ft 6 in Weight: 147 lb 4 oz BMI 23.8 BP 118/68 Intake Visit Reasons: Annual (EX CHEF) Chief Complaint: Annual Stonemason Required: No Is patient in pain?: No [...] menopausal: Yes Patient : No : No [facility] Medical History Wears glasses Post-menopausal Non-smoker Leg [...] safe at home: Yes additional social history: [facility] History 2 Elective abortions Hx Para 2 Spontaneous abortions Hx # Term Pregnancies Ectopic pregnancies Hx # Pregnancies Multiple births # of living children Past Pregnancies Del. Date Name GA/Weeks Outcome Route Bth Weight Gen Labor Lgth Anesthesia Del Locatn Provider FOB Unknown 1992 [facility] Encounter for routine gynecological examination Details: VICTORINA [...] oriented to person and oriented to place HENRI Head: normal to inspection Neck Neck: normal [...] of radha (more content not included)... Normal [facility] SCRN MAMM (CAD)W/KEAGAN BILATo n 07-25-2024 SCRN MAMM (CAD)W/KEAGAN BILAT [facility] Imaging Services [address] [place], [place] [address] SCRN MAMM (CAD)W/KEAGANCherelle PRINCE MR#: [id number] Acct: [id number] Name: VICTORINA GLORIA Amalia Rep #: [id number] : 1960 F 64 From: Flavio chaudhari MD PCP: Dr. Tanya Miranda MD Status: [facility] Study: SCRN MAMM (CAD)W/KEAGAN BILAT Date of Exam: 06/28 06/20 Exam# [id number] Ordering Dr: Tanya Miranda MD [id number] MAMMOGRAPHY - BILATERAL SCREENING REASON FOR EXAM: [...] delay biopsy of a clinically suspicious abnormality. [id number] Electronically Signed: Flavio Ruiz MD at 11:32 EDT , CC: Dr. Tanya Miranda MD Hospit[facility] Internship: Signed Normal [facility] Thyroid Stim Hormone (TSH)on 06-28-2024 TSH 2.320 uIU/mL Normal 0.358-3.740 [facility] Comment on above: Order Comment: ADD O NTO EMPH LABS DONE 06-27-24 Performed By: #### L 501.9520 #### [facility] [address] [place], [address] CBC, Employeeon 2024 Absolute Lymph 1.52 X10 3/uL Normal 0.83-4.51 [facility] Comment on above: Order Comment: PFEM Performed By: #### L 500.2900, L400.0100, L100.0200 #### [facility] [address] [place], [address] Absolute Neut 3.8 X10 3/uL Normal 2.0-7.7 [facility] Comment on above: Order Comment: PFEM Performed By: #### L 500.2900, L400.0100, L100.0200 #### [facility] [address] [place], [address] Basophils/100 WBC (Bld) 0.8 % Normal 0-1 [facility] Comment on above: Order Comment: PFEM Performed By: #### L 500.2900, L400.0100, L100.0200 #### [facility] [address] [place], [address] Eosinophils/100 WBC (Bld) 2.3 % Normal 0-5 [facility] Comment on above: Order Comment: PFEM Performed By: #### L 500.2900, L400.0100, L100.0200 #### [facility] [address] [place], [address] Erythrocyte distribution width (RBC) [Ratio] 12.9 % Normal 11.6-14.6 [facility] Comment on above: Order Comment: PFEM Performed By: #### L 500.2900, L400.0100, L100.0200 #### [facility] [address] [place], [address] Hematocrit (Bld) [Volume fraction] 42.3 % Normal 37-47 [facility] Comment on above: Order Comment: PFEM Performed By: #### L 500.2900, L400.0100, L100.0200 #### [facility] [address] [place], [address] Hemoglobin (Bld) [Mass/Vol] 14.0 g/dL Normal 12.0-15.0 [facility] Comment on above: Order Comment: PFEM Performed By: #### L 500.2900, L400.0100, L100.0200 #### [facility] [address] [place], [address] Lymphocytes/100 WBC (Bld) 25.0 % Normal 19-41 [facility] Comment on above: Order Comment: PFEM Performed By: #### L 500.2900, L400.0100, L100.0200 #### [facility] [address] [place], [address] MCH (RBC) [Entitic mass] 31.3 pg Normal 27.0-32.0 [facility] Comment on above: Order Comment: PFEM Performed By: #### L 500.2900, L400.0100, L100.0200 #### [facility] [address] [place], [address] MCHC (RBC) [Mass/Vol] 33.1 g/dL Normal 32-36 [facility] Comment on above: Order Comment: PFEM Performed By: #### L 500.2900, L400.0100, L100.0200 #### [facility] [address] [place], [address] MCV (RBC) [Entitic vol] 94.4 fL Normal 81-99 [facility] Comment on above: Order Comment: PFEM Performed By: #### L 500.2900, L400.0100, L100.0200 #### [facility] [address] [place], [address] Monocytes/100 WBC (Bld) 8.5 % Normal 0-10 [facility] Comment on above: Order Comment: PFEM Performed By: #### L 500.2900, L400.0100, L100.0200 #### [facility] [address] [place], [address] Neutrophils/100 WBC (Bld) 63.1 % Normal 47-70 [facility] Comment on above: Order Comment: PFEM Performed By: #### L 500.2900, L400.0100, L100.0200 #### [facility] [address] [place], [address] NRBC # 0.00 10 3/uL Normal 0-5 [facility] Comment on above: Order Comment: PFEM Performed By: #### L 500.2900, L400.0100, L100.0200 #### [facility] [address] [place], [address] Nucleated RBC (Bld) [#/Vol] 0 10*3/uL Normal 0-5 [facility] Comment on above: Order Comment: PFEM Performed By: #### L 500.2900, L400.0100, L100.0200 #### [facility] [address] [place], [address] Platelet mean volume (Bld) [Entitic vol] 9.7 fL Normal 6.2-12.0 [facility] Comment on above: Order Comment: PFEM Performed By: #### L 500.2900, L400.0100, L100.0200 #### [facility] [address] [place], [address] Platelets (Bld) [#/Vol] 243 10*3/uL Normal 150-450 [facility] Comment on above: Order Comment: PFEM Performed By: #### L 500.2900, L400.0100, L100.0200 #### [facility] [address] [place], [address] RBC (Bld) [#/Vol] 4.48 10*6/uL Normal 4.2-5.4 [facility] Comment on above: Order Comment: PFEM Performed By: #### L 500.2900, L400.0100, L100.0200 #### [facility] [address] [place], [address] RDW SD 44.5 fl High 35.1-43.9 [facility] Comment on above: Order Comment: PFEM Performed By: #### L 500.2900, L400.0100, L100.0200 #### [facility] [address] [place], [address] WBC (Bld) [#/Vol] 6.1 10*3/uL Normal 4.4-11.0 [facility] Comment on above: Order Comment: PFEM Performed By: #### L 500.2900, L400.0100, L100.0200 #### [facility] [address] [place], [address] Employee Profileon 4 Albumin [Mass/Vol] 3.8 g/dL Normal 3.2-5.0 [facility] Comment on above: Order Comment: PFEM Performed By: #### L 500.2900, L400.0100, L100.0200 #### [facility] [address] [place], [address] Albumin/Globulin [Mass ratio] 1.1 {ratio} Normal 0.9-2.4 [facility] Comment on above: Order Comment: PFEM Performed By: #### L 500.2900, L400.0100, L100.0200 #### [facility] [address] [place], [address] ALK P 93 U/L Normal 45-117 [facility] Comment on above: Order Comment: PFEM Performed By: #### L 500.2900, L400.0100, L100.0200 #### [facility] [address] [place], [address] ALT [Catalytic activity/Vol] 19 U/L Normal 13-56 [facility] Comment on above: Order Comment: PFEM Performed By: #### L 500.2900, L400.0100, L100.0200 #### [facility] [address] [place], [address] AST [Catalytic activity/Vol] 15 U/L Normal 15-37 [facility] Comment on above: Order Comment: PFEM Performed By: #### L 500.2900, L400.0100, L100.0200 #### [facility] [address] [place], [address] Bilirubin [Mass/Vol] 0.80 mg/dL Normal 0.20-1.00 [facility] Comment on above: Order Comment: PFEM Result Comment: For patients on eltrombopag therapy, use of Dimension [place] TBIL is not recommended. Performed By: #### L 500.2900, L400.0100, L100.0200 #### [facility] [address] [place], [address] Bilirubin.direct [Mass/Vol] 0.14 mg/dL Normal 0.00-0.30 [facility] Comment on above: Order Comment: PFEM Performed By: #### L 500.2900, L400.0100, L100.0200 #### [facility] [address] [place], [address] BUN/CRE 20.3 RATIO High 10-20 [facility] Comment on above: Order Comment: PFEM Performed By: #### L 500.2900, L400.0100, L100.0200 #### [facility] [address] [place], [address] CA,Total 9.7 mg/dL Normal 8.5-10.1 [facility] Comment on above: Order Comment: PFEM Performed By: #### L 500.2900, L400.0100, L100.0200 #### [facility] [address] [place], [address] Chloride [Moles/Vol] 107 mmol/L Normal 98-107 [facility] Comment on above: Order Comment: PFEM Performed By: #### L 500.2900, L400.0100, L100.0200 #### [facility] [address] [place], [address] CHOL:HDL 2.40 Normal [facility] Comment on above: Order Comment: PFEM Performed By: #### L 500.2900, L400.0100, L100.0200 #### [facility] [address] [place], [address] Cholesterol [Mass/Vol] 234 mg/dL High 200 [facility] Comment on above: Order Comment: PFEM Result Comment: <200 mg/dL Desirable 200-240 mg/dL Borderline >240 mg/dL High Risk Performed By: #### L 500.2900, L400.0100, L100.0200 #### [facility] [address] [place], [address] Cholesterol in HDL [Mass/Vol] 96 mg/dL Normal [facility] Comment on above: Order Comment: PFEM Result Comment: The drugs N-Acetylcysteine and Metamizole may falsely depress this assay. Reference Range HDL <40 mg/dL Low HDL Cholesterol HDL >or= 60 mg/dL High HDL Cholesterol Performed By: #### L 500.2900, L400.0100, L100.0200 #### [facility] [address] [place], [address] Cholesterol in LDL [Mass/Vol] 127 mg/dL Normal 0-130 [facility] Comment on above: Order Comment: PFEM Performed By: #### L 500.2900, L400.0100, L100.0200 #### [facility] [address] [place], [address] Cholesterol in VLDL [Mass/Vol] 11 mg/dL Normal 5-40 [facility] Comment on above: Order Comment: PFEM Performed By: #### L 500.2900, L400.0100, L100.0200 #### [facility] [address] [place], [address] CO2 [Moles/Vol] 27.0 mmol/L Normal 21.0-32.0 [facility] Comment on above: Order Comment: PFEM Performed By: #### L 500.2900, L400.0100, L100.0200 #### [facility] [address] [place], [address] Creatinine [Mass/Vol] 0.89 mg/dL Normal 0.55-1.02 [facility] Comment on above: Order Comment: PFEM Result Comment: The validity of the calculated GFR GFRAA in patients over 70 years has not been determined. Clinical correlation is essential. Performed By: #### L 500.2900, L400.0100, L100.0200 #### [facility] [address] [place], [address] EST GFR - AA 83 mL/min Normal >60 [facility] Comment on above: Order Comment: PFEM Result Comment: Afri can Nigerian GFR Calc Performed By: #### L 500.2900, L400.0100, L100.0200 #### [facility] [address] [place], [address] GAP 6 Normal 5-15 [facility] Comment on above: Order Comment: PFEM Performed By: #### L 500.2900, L400.0100, L100.0200 #### [facility] [address] [place], [address] GFR/1.73 sq M.predicted among non-blacks MDRD (S/P/Bld) [Vol rate/Area] 68 mL/min/{1.73_m2} Normal >60 [facility] Comment on above: Order Comment: PFEM Result Comment: Non- GFR Calc Performed By: #### L 500.2900, L400.0100, L100.0200 #### [facility] [address] [place], [address] Globulin (S) [Mass/Vol] 3.4 g/dL Normal 2.2-4.2 [facility] Comment on above: Order Comment: PFEM Performed By: #### L 500.2900, L400.0100, L100.0200 #### [facility] [address] [place], [address] Glucose [Mass/Vol] 87 mg/dL Normal 74-106 [facility] Comment on above: Order Comment: PFEM Performed By: #### L 500.2900, L400.0100, L100.0200 #### [facility] [address] [place], [address] LDH 178 U/L Normal 84-246 [facility] Comment on above: Order Comment: PFEM Performed By: #### L 500.2900, L400.0100, L100.0200 #### [facility] [address] [place], [address] Phosphate [Mass/Vol] 3.8 mg/dL Normal 2.5-4.9 [facility] Comment on above: Order Comment: PFEM Performed By: #### L 500.2900, L400.0100, L100.0200 #### [facility] [address] [place], [address] Potassium [Moles/Vol] 4.4 mmol/L Normal 3.5-5.1 [facility] Comment on above: Order Comment: PFEM Performed By: #### L 500.2900, L400.0100, L100.0200 #### [facility] [address] [place], [address] Sodium [Moles/Vol] 140 mmol/L Normal 136-145 [facility] Comment on above: Order Comment: PFEM Performed By: #### L 500.2900, L400.0100, L100.0200 #### [facility] [address] [place], [address] T PROT 7.2 g/dL Normal 6.4-8.2 [facility] Comment on above: Order Comment: PFEM Performed By: #### L 500.2900, L400.0100, L100.0200 #### [facility] [address] [place], [address] Triglyceride [Mass/Vol] 55 mg/dL Normal [facility] Comment on above: Order Comment: PFEM Result Comment: The drugs N-Acetylcysteine and Metamizole may falsely depress this assay. Serum Triglycerides Reference Interval Normal <150 mg/dL Borderline high 150 - 199 mg/dL High 200 - 499 mg/dL Very High > or = 500 mg/dL Performed By: #### L 500.2900, L400.0100, L100.0200 #### [facility] [address] [place], [address] Urea nitrogen [Mass/Vol] 18 mg/dL Normal 7-18 [facility] Comment on above: Order Comment: PFEM Performed By: #### L 500.2900, L400.0100, L100.0200 #### [facility] [address] [place], [address] URIC 3.4 mg/dL Normal 2.6-6.0 [facility] Comment on above: Order Comment: PFEM Result Comment: The drugs N-Acetylcysteine and Metamizole may falsely depress this assay. Performed By: #### L 500.2900, L400.0100, L100.0200 #### [facility] [address] [place], [address] Urinalysis, Employeeon 06-27 BILIRUBIN URINE Normal Negative [facility] Comment on above: Order Comment: PFEM CLEAN CATCH Result Comment: NOT WANTED Performed By: #### L 500.2900, L400.0100, L100.0200 #### [facility] [address] [place], [address] Clarity (U) Normal Clear [facility] Comment on above: Order Comment: PFEM CLEAN CATCH Result Comment: NOT WANTED Performed By: #### L 500.2900, L400.0100, L100.0200 #### [facility] [address] [place], [address] Color (U) Normal Yellow [facility] Comment on above: Order Comment: PFEM CLEAN CATCH Result Comment: NOT WANTED Performed By: #### L 500.2900, L400.0100, L100.0200 #### [facility] [address] [place], [address] GLUCOSE, UR Normal Normal [facility] Comment on above: Order Comment: PFEM CLEAN CATCH Result Comment: NOT WANTED Performed By: #### L 500.2900, L400.0100, L100.0200 #### [facility] [address] [place], [address] KETONE UR Normal Negative [facility] Comment on above: Order Comment: PFEM CLEAN CATCH Result Comment: NOT WANTED Performed By: #### L 500.2900, L400.0100, L100.0200 #### [facility] [address] [place], [address] LEUK ESTERASE Normal Negative [facility] Comment on above: Order Comment: PFEM CLEAN CATCH Result Comment: NOT WANTED Performed By: #### L 500.2900, L400.0100, L100.0200 #### [facility] [address] [place], [address] Nitrite Ql (U) Normal Negative [facility] Comment on above: Order Comment: PFEM CLEAN CATCH Result Comment: NOT WANTED Performed By: #### L 500.2900, L400.0100, L100.0200 #### [facility] [address] [place], [address] OCCULT BLOOD-UR Normal Negative [facility] Comment on above: Order Comment: PFEM CLEAN CATCH Result Comment: NOT WANTED Performed By: #### L 500.2900, L400.0100, L100.0200 #### [facility] [address] [place], [address] pH UR Normal 5.0 - 8.0 [facility] Comment on above: Order Comment: PFEM CLEAN CATCH Result Comment: NOT WANTED Performed By: #### L 500.2900, L400.0100, L100.0200 #### [facility] [address] [place], [address] PROT DIPSTX Normal Negative [facility] Comment on above: Order Comment: PFEM CLEAN CATCH Result Comment: NOT WANTED Performed By: #### L 500.2900, L400.0100, L100.0200 #### [facility] [address] [place], [address] SP.GR. DIPSTX Normal 1.002-1.030 [facility] Comment on above: Order Comment: PFEM CLEAN CATCH Result Comment: NOT WANTED Performed By: #### L 500.2900, L400.0100, L100.0200 #### [facility] [address] [place], [address] UR Preservative Normal [facility] Comment on above: Order Comment: PFEM CLEAN CATCH Result Comment: NOT WANTED Performed By: #### L 500.2900, L400.0100, L100.0200 #### [facility] [address] [place], [address] UROBILI Normal Normal [facility] Comment on above: Order Comment: PFEM CLEAN CATCH Result Comment: NOT WANTED Performed By: #### L 500.2900, L400.0100, L100.0200 #### [facility] [address] [place], [address] Bacteria Ur Culton 3 Bacteria identified Cx Nom (U) ORGANISM ID: 1 <10,000 CFU/ml Lactose positive gram negative bacilli Insignificant colony count. No further workup. Normal [facility] Comment on above: Performed By: #### 6 [id number] #### [facility] CLIA [id number] [address] [place] [address] [place] CNOVon 11-09-2022 CNOV Office Visit (UCWSTR ) VICTORINA GLORIA ([id number]) 1960 F Date Time Provider Department 11/09/22 7:30 PM MARLEEN LEON [facility] During your visit today, we recorded the [...] urethra (phen (more content not included)... Normal [facility] UA DIP, URINE (POC)on 2022 BILIRUBIN UA (POCT) Negative Negative [facility] CLARITY UA (POCT) Slightly Cloudy Cl [facility] COLOR UA (POCT) Yellow [facility] GLUCOSE UA (POCT) Negative Negative mg/dL [facility] HEMOGLOBIN/BLOOD UA (POCT) Large Abnormal Negative [facility] KETONE UA (POCT) Negative Negative mg/dL [facility] LEUKOCYTES UA (POCT) Moderate Abnormal Negative [facility] NITRITE UA (POCT) Negative Negative [facility] PH UA (POCT) 7.0 4.5 - 8.0 [facility] Protein Ql (U) 100 mg/dL Abnormal Negative mg/dL [facility] SPECIFIC GRAVITY UA (POCT) 1.020 1.005 - 1.030 [facility] UROBILINOGEN UA (POCT) 0.2 E.U./dL Normal E.U./dL [facility] No Panel Informationon 09-01 Thyroid Stimulating Hormone (TSH) 15.00 uIU/mL 0.358-3.74 [facility] Work Phone: CNOVon 08-27-2022 CNOV Office Visit (UCWSTR ) VICTORINA GLORIA ([id number]) 1960 F Date Time Provider Department 08/27/22 [...] LEEP-Cervix LEFT WRIST CARPAL TUNNEL ONLY 06/11/2016 [facility] PAST SURGICAL HISTORY OF laser surgery in [...] Father Diabetes Maternal Grandmother in 60's from [place] None Brother Coronary Artery Disease Brother [place] age 43 other (suicide) Brother 24 Social [...] INSTRUMENTATION [6921 (more content not included)... Normal [facility] Absolute lymphocyte counton 06-25-2022 Lymphocytes Auto (Unsp spec) [#/Vol] 1.01 10*3/uL 0.83-4.51 [facility] Work Phone: Absolute reticulocyte counto n 06-25-2022 Reticulocytes (Bld) [#/Vol] 0.00 10*3/uL 0-5 [facility] Work Phone: Basophil percentageon 2021 Basophil percentage 3.5 mg/dL 2.5-4.9 [facility] Work Phone: Bilirubin [Mass/Vol] 0.40 mg/dL 0.20-1.00 [facility] Work Phone: Comment on above: For patients on eltr ombopag therapy, use of Dimension [place] TBIL is not recommended. Chloride [Moles/Vol] 106 mmol/L 98-107 [facility] Work Phone: Cholesterol [Mass/Vol] 253 mg/dL <200 [facility] Work Phone: Comment on above: <200 mg/dL Desirable 200-240 mg/dL Borderline >240 mg/dL High Risk Glucose [Mass/Vol] 78 mg/dL 74-106 [facility] Work Phone: Neutrophils (Bld) [#/Vol] 4.6 10*3/uL 2.0-7.7 [facility] Work Phone: Potassium [Moles/Vol] 4.0 mmol/L 3.5-5.1 [facility] Work Phone: Protein [Mass/Vol] 7.5 g/dL 6.4-8.2 [facility] Work Phone: Sodium [Moles/Vol] 143 mmol/L 136-145 [facility] Work Phone: Triglyceride [Mass/Vol] 68 mg/dL <199 [facility] Work Phone: Comment on above: The drugs N-Acetylcy steine and Metamizole may falsely depress this assay.Serum Triglycerides Reference Interval Normal <150 mg/dL Borderline high 150 - 199 mg/dL High 200 - 499 mg/dL Very High > or = 500 mg/dL WBC (Bld) [#/Vol] 6.4 10*3/uL 4.4-11.0 [facility] Work Phone: Blood erythrocytes count (nu mber/volume)on 06-25-2022 RBC (Bld) [#/Vol] 4.45 10*6/uL 4.2-5.4 [facility] Work Phone: Blood hemoglobin measurement (mass/volume)on 06-25-2022 Hemoglobin (Bld) [Mass/Vol] 14.6 g/dL 12.0-15.0 [facility] Work Phone: Blood platelet mean volumeon 06-25-2022 Platelet mean volume (Bld) [Entitic vol] 9.3 fL 6.2-12.0 [facility] Work Phone: Determination of erythrocyte mean corpuscular volume (MCV)on 06-25-2022 MCV (RBC) [Entitic vol] 95.7 fL 81-99 [facility] Work Phone: Direct bilirubinon Bilirubin.direct [Mass/Vol] 0.09 mg/dL 0.00-0.30 [facility] Work Phone: Hematocrit Auto (Bld) [Volum e fraction]on 06-25-2022 Hematocrit (Bld) [Volume fraction] 42.6 % 37-47 [facility] Work Phone: Laboratory - Chemistry and C hemistry - challengeon 06-25-2022 ALP [Catalytic activity/Vol] 91 U/L 45-117 [facility] Work Phone: ALT [Catalytic activity/Vol] 19 U/L 13-56 [facility] Work Phone: Cholesterol.total/C holesterol in HDL [Mass ratio] 2.70 {ratio} [facility] Work Phone: CO2 [Moles/Vol] 30.0 mmol/L 21.0-32.0 [facility] Work Phone: Free T4 [Mass/Vol] 0.86 ng/dL 0.76-1.46 [facility] Work Phone: Globulin (S) [Mass/Vol] 3.7 g/dL 2.2-4.2 [facility] Work Phone: Urea nitrogen/Creatinine [Mass ratio] 15.2 mg/mg 10-20 [facility] Work Phone: Laboratory - Hematology and Cell countson 06-25-2022 Erythrocyte distribution width (RBC) [Entitic vol] 46.0 fL 35.1-43.9 [facility] Work Phone: Erythrocyte distribution width (RBC) [Ratio] 13.0 % 11.6-14.6 [facility] Work Phone: MCH (RBC) [Entitic mass] 32.8 pg 27.0-32.0 [facility] Work Phone: Nucleated RBC/100 WBC (Bld) [Ratio] 0 % 0-5 [facility] Work Phone: MCHC Auto (RBC) [Mass/Vol]on 06-25-2022 MCHC (RBC) [Mass/Vol] 34.3 g/dL 32-36 [facility] Work Phone: No Panel Informationon 06-25 Estimated GFR (MDRD) Amer 73 mL/min >60 [facility] Work Phone: Comment on above: GFR Calc Estimated GFR (MDRD) Non-Af Amer 61 mL/min >60 [facility] Work Phone: Comment on above: Non- GFR Calc Thyroid Stimulating Hormone (TSH) 27.30 uIU/mL 0.358-3.74 [facility] Work Phone: Platelets bldon 06-25-2022 Platelets (Bld) [#/Vol] 223 10*3/uL 150-450 [facility] Work Phone: Segmented neutrophils/100 WB C Auto (Bld)on 06-25-2022 Segmented neutrophils/100 WBC (Bld) 71.9 % 47-70 [facility] Work Phone: Serum or plasma albumin massimo urement (mass/volume)on 06-25-2022 Albumin [Mass/Vol] 3.8 g/dL 3.2-5.0 [facility] Work Phone: Serum or plasma albumin/glob ulin mass ratioon 06-25-2022 Albumin/Globulin [Mass ratio] 1.0 {ratio} 0.9-2.4 [facility] Work Phone: Serum or plasma calcium massimo urement (mass/volume)on 06-25-2022 Calcium [Mass/Vol] 9.0 mg/dL 8.5-10.1 [facility] Work Phone: Serum or plasma cholesterol in HDL measurement (mass/volume)on 06-25-2022 Cholesterol in HDL [Mass/Vol] 95 mg/dL >40 [facility] Work Phone: Comment on above: The drugs N-Acetylcy steine and Metamizole may falsely depress this assay. Reference Range HDL <40 mg/dL Low HDL Cholesterol HDL >or= 60 mg/dL High HDL Cholesterol Serum or plasma cholesterol in VLDL measurement (mass/volume)on 06-25-2022 Cholesterol in VLDL [Mass/Vol] 14 mg/dL 5-40 [facility] Work Phone: Serum or plasma creatinine m easurement (mass/volume)on 06-25-2022 Creatinine [Mass/Vol] 0.99 mg/dL 0.55-1.02 [facility] Work Phone: Comment on above: The validity of the calculated GFR & GFRAA in patients over 70 years has not been determined. Clinical correlation is essential. Serum or plasma low density lipoprotein (LDL) cholesterol measurement (mass/volume)on 06-25-2022 Cholesterol in LDL [Mass/Vol] 144 mg/dL 0-130 [facility] Work Phone: Serum or plasma urea nitroge n measurement (mass/volume)on 06-25-2022 Urea nitrogen [Mass/Vol] 15 mg/dL 7-18 [facility] Work Phone: Serum or plasma uric acid me asurement (mass/volume)on 06-25-2022 Urate [Mass/Vol] 3.4 mg/dL 2.6-6.0 [facility] Work Phone: Comment on above: The drugs N-Acetylcy steine and Metamizole may falsely depress this assay. Thin prep Papanicolaou smear with manual screeningon 06-25-2022 Thin prep Papanicolaou smear with manual screening 20 U/L 15-37 [facility] Work Phone: Thin prep Papanicolaou smear with manual screening 7 5-15 [facility] Work Phone: Thin prep Papanicolaou smear with manual screening 185 U/L 84-246 [facility] Work Phone: CNOVon 03-28-2022 CNOV Office Visit (UCWSTR ) VICTORINA GLORIA ([id number]) 1960 F Date Time Provider Department 03/28/22 2:30 PM MARY ROJO [facility] During your visit today, we recorded the following information about you: Temperature Pulse Respiration Blood pressure 97.8 degrees 85/minute 21/minute 132/68 Weight 65.3 kg Mary Rojo APRN.EXTENSION SERVICE SUPERVISOR 03/28/2022 2:38 PM Signed Subjective Patient came [...] - LEFT WRIST CARPAL TUNNEL ONLY 06/11/2016 [facility] - PAST SURGICAL HISTORY OF laser surgery [...] - Diabetes Maternal Grandmother in 60's from [place] - None Brother - Coronary Artery Disease Brother [place] age 43 - other (suicide) Brother 24 [...] ophen-GG (TYLENOL (more content not included)... Normal [facility] Vital Signs Date Time Vital Sign Value Performing Clinician Higinioi meli 11-09-2022 19:14-0500 Body temperature 96.91 [degF] Marleen Leon APRN.CNP Work Phone: [facility] 11-09-2022 19:14-0500 Body weight 68.49 kg Marleen Leon APRN.CNP Work Phone: [facility] 11-09-2022 19:14-0500 Diastolic blood pressure 74 mm[Hg] Marleen Praisler-Wood VICE PRESIDENT MARKETING & DEVELOPMENT.EXTENSION SERVICE SUPERVISOR Work Phone: [facility] 11-09-2022 19:14-0500 Heart rate 80 /min Marleen Praisler-Wood VICE PRESIDENT MARKETING & DEVELOPMENT.EXTENSION SERVICE SUPERVISOR Work Phone: [facility] 11-09-2022 19:14-0500 Respiratory rate 16 /min Marleen Praisler-Wood VICE PRESIDENT MARKETING & DEVELOPMENT.EXTENSION SERVICE SUPERVISOR Work Phone: [facility] 11-09-2022 19:14-0500 SaO2% (BldA) [Mass fraction] 98 % Marleen Praisler-Wood VICE PRESIDENT MARKETING & DEVELOPMENT.EXTENSION SERVICE SUPERVISOR Work Phone: [facility] 11-09-2022 19:14-0500 Systolic blood pressure 126 mm[Hg] Marleen Praisler-Wood VICE PRESIDENT MARKETING & DEVELOPMENT.EXTENSION SERVICE SUPERVISOR Work Phone: [facility] 08-27-2022 14:19-0500 Body temperature 97.81 [degF] Mary Rojo VICE PRESIDENT MARKETING & DEVELOPMENT.EXTENSION SERVICE SUPERVISOR Work Phone: [facility] 08-27-2022 14:19-0500 Body weight 67.22 kg Mary Rojo APRN.EXTENSION SERVICE SUPERVISOR Work Phone: [facility] 08-27-2022 14:19-0500 Diastolic blood pressure 80 mm[Hg] Mary Rojo VICE PRESIDENT MARKETING & DEVELOPMENT.EXTENSION SERVICE SUPERVISOR Work Phone: [facility] 08-27-2022 14:19-0500 Heart rate 81 /min Mary Rojo VICE PRESIDENT MARKETING & DEVELOPMENT.EXTENSION SERVICE SUPERVISOR Work Phone: [facility] 08-27-2022 14:19-0500 Respiratory rate 16 /min Mary Rojo VICE PRESIDENT MARKETING & DEVELOPMENT.EXTENSION SERVICE SUPERVISOR Work Phone: [facility] 08-27-2022 14:19-0500 SaO2% (BldA) [Mass fraction] 99 % Mary Rojo VICE PRESIDENT MARKETING & DEVELOPMENT.EXTENSION SERVICE SUPERVISOR Work Phone: [facility] 08-27-2022 14:19-0500 Systolic blood pressure 128 mm[Hg] Mary Rojo VICE PRESIDENT MARKETING & DEVELOPMENT.EXTENSION SERVICE SUPERVISOR Work Phone: [facility] 03-28-2022 14:26-0400 Body temperature 97.81 [degF] Mary Rojo APRN.EXTENSION SERVICE SUPERVISOR Work Phone: [facility] 03-28-2022 14:26-0400 Body weight 65.32 kg Mary Rojo APRN.EXTENSION SERVICE SUPERVISOR Work Phone: [facility] 03-28-2022 14:26-0400 Diastolic blood pressure 68 mm[Hg] Mary Rojo APRN.EXTENSION SERVICE SUPERVISOR Work Phone: [facility] 03-28-2022 14:26-0400 Heart rate 85 /min Mary Rojo APRN.EXTENSION SERVICE SUPERVISOR Work Phone: [facility] 03-28-2022 14:26-0400 Respiratory rate 21 /min Mary Rojo APRN.EXTENSION SERVICE SUPERVISOR Work Phone: [facility] 03-28-2022 14:26-0400 SaO2% (BldA) [Mass fraction] 98 % Mary Rojo APRN.EXTENSION SERVICE SUPERVISOR Work Phone: [facility] 03-28-2022 14:26-0400 Systolic blood pressure 132 mm[Hg] Mary Rojo APRN.EXTENSION SERVICE SUPERVISOR Work Phone: [facility] Encounters Encounter Date Encounter Type Care Provider Facility Start: 05-29-2025 ambulatory [facility] Facility: [facility] Start: 08-15-2024 Encounter for gynecological examination (general) (routine) with abnormal findings Rae Hutton NP [facility] Start: 08-15-2024 End: 08-15-2024 ambulatory Tanya Mied Facility:[facility] Start: 08-15-2024 End: 08-15-2024 ambulatory [facility] Facility:[facility] Start: 07-25-2024 End: 07-25-2024 ambulatory [facility] Facility:[facility] Start: 2024 End: 06-28-2024 ambulatory [facility] Facility:[facility] Start: 05-18-2023 End: 05-18-2023 ambulatory [facility] Work Phone: Start: 05-18-2023 End: 05-18-2023 Patient encounter procedure [facility] Work Phone: Start: 11-09-2022 End: 11-09-2022 ambulatory TANYA E DEEOSMAREL Facility:[facility] Start: 11-09-2022 End: 11-09-2022 Patient encounter procedure Marleen Leon APRN.EXTENSION SERVICE SUPERVISOR Work Phone: [facility] Comment on above: Urinary frequency (P rimary Dx); Gross hematuria Start: 09-01-2022 End: 09-01-2022 ambulatory [facility] Work Phone: Start: 09-01-2022 End: 09-01-2022 Patient encounter procedure [facility]Labor[facility] Start: 08-27-2022 End: 08-27-2022 ambulatory [facility] Facility:[facility] Start: 08-27-2022 End: 08-27-2022 Patient encounter procedure Mary Rojo APRN.EXTENSION SERVICE SUPERVISOR Work Phone: [facility] Comment on above: Impacted cerumen of left ear (Primary Dx) Start: 06-25-2022 End: 06-25-2022 Patient encounter procedure [facility]Laboratory, Specimen Start: 06-25-2022 Registered Referred [facility] Start: 03-28-2022 End: 03-28-2022 ambulatory REN Gemma CEBUL III Facility:[facility] Start: 03-28-2022 End: 03-28-2022 Patient encounter procedure Mary Rojo APRN.EXTENSION SERVICE SUPERVISOR Work Phone: [facility] Comment on above: Back spasm (Primary Dx) Start: 03-26-2022 End: 03-26-2022 Patient encounter procedure [facility]Radiology, [facility] Procedures Date Procedure Procedure Detail Performing Clinician Start: 05-18-2023 Screening mammography Start: 11-09-2022 Urnls dip stick/tabl et rgnt auto w/o microscopy Marleen Leon APRN.EXTENSION SERVICE SUPERVISOR Work Phone: Start: 03-26-2022 X-ray of lumbosacral spine Start: 02-01-2018 Colonoscopy Mary Rojo APRN.[facility] Work Phone: Start: 06-14-2017 Adult depression scr eening assessment Mary Rojo APRN.[facility] Work Phone: Start: 07-16-2016 Mammography Mary Rojo APRN.[facility] Work Phone: Plan of Treatment Date Care Activity Detail Author Start: 06-21-2024 LIPID SCREEN LIPID SCREEN [facility] Start: 10-26-2022 HPV TESTING HPV TESTING [facility] Start: 10-26-2022 PAP TESTING PAP TESTING [facility] Start: 09-27-2022 DEPRESSION ASSESSMENT DEPRESSION ASS ESSMENT [facility] Start: 06-22-2022 DIABETES SCREEN DIABETES SCREEN [facility] Start: 05-28-2022 Influenza vaccination INFLUENZA (#1) [facility] Start: 04-22-2022 Urine microalbumin profile DTAP,TDAP,TD (2 - Td or Tdap) [facility] Start: 09-27-2021 DEPRESSION ASSESSMENT DEPRESSION ASS ESSMENT [facility] Start: 05-30-2021 ANNUAL PCP TEAM DOG OR ANIMAL SITTER ELLE DISEASE VISIT ANNUAL PCP TEAM CHRONIC DISEASE VISIT [facility] Start: 04-11-2021 COVID-19 VACCINE (3 - Booster for Moderna series) COVID-19 VACCINE (3 - Booster for Moderna series) [facility] Start: 01-07-2021 COVID-19 VACCINE (3 - Booster for Moderna series) COVID-19 VACCINE (3 - Booster for Moderna series) [facility] Start: 02-01-2019 Colonoscopy COLONOSCOPY [facility] Start: 02-01-2019 COLORECTAL CANCER SCREENING COLORECTAL CANCER SCREENING [facility] Start: 06-14-2018 Adult depression screening assessment DEPRESSION SCREENING [facility] Start: 07-16-2017 Mammography MAMMOGRAM [facility] Start: 2011 SHINGRIX VACCINE (1 of 2) NICK GRIX VACCINE (1 of 2) [facility] Start: 2006 COLOGUARD (FIT-DNA) COLOGUARD (FIT-D NA) [facility] Start: [address] COLONOGRAPHY [facility] Start: 2006 FECAL OCCULT BLOOD FECAL OCCULT BLOO D [facility] Start: 2006 SIGMOIDOSCOPY SIGMOIDOSCOPY [facility] Start: 1979 HEPATITIS C SCREENING HEPATITIS C JEROME PRISCILLA [facility] Start: 1979 HIV SCREENING HIV SCREENING [facility] Bacteria identified in Urine by Culture URINE CULTURE Microbiology Routine Urinary frequency Gross hematuria 11/09/2022 7:48 PM EST [facility] Work Phone: Removal impacted cer umen instrumentation unilat REMOVAL OF IMPACTED CERUMEN - INSTRUMENTATION Procedures Routine Impacted cerumen of left ear Ordered: 08/27/2022 [facility] Work Phone: Comment on above: Ordered: 08/27/2022 Immunizations Immunization Date Immunization Notes Care Provider Rene su 07-20-2022 influenza, seasonal, injectable [facility] 07-14-2021 influenza, seasonal, injectable [facility] 11-12-2020 Covid (Moderna) [facility] 10-15-2020 Covid (Moderna) [facility] 07-03-2020 influenza, seasonal, injectable [facility] 07-31-2019 influenza, seasonal, injectable [facility] 07-27-2018 influenza, seasonal, injectable [facility] 06-25-2016 influenza, seasonal, injectable [facility] 06-26-2015 influenza, seasonal, injectable [facility] 06-04-2014 influenza, seasonal, [facility] 04-22-2012 tetanus toxoid, redu cristiano diphtheria toxoid, and acellular pertussis vaccine, adsorbed Mary Rojo APRN.[facility] Work Phone: [facility] Work Phone: 12-24-1992 hepatitis B immune globulin Mary Rojo APRN.EXTENSION SERVICE SUPERVISOR Work Phone: [facility] Work Phone: 06-26-1992 hepatitis B immune globulin Mary Rojo APRN.EXTENSION SERVICE SUPERVISOR Work Phone: [facility] Work Phone: 01-25-1992 hepatitis B immune globulin Mary Rojo APRN.[facility] Work Phone: [facility] Work Phone: Payers Date Payer Category Payer Self-pay [id number] 2022 Private Health Insurance MIREYA MICHEL [id number] 2022-Present [phone] [address] [place] [address] PPO [id number] 2022 Private Health Insurance [id number] 2019 Unknown MMO MMO TPA [id number] 2019-Present [address] [place] [address] PPO [id number] 2019 Unknown MMO MMO TPA [id number] 2019-Present [address] [place] [address] PPO [id number] 2015 Unknown [id number] Unknown [id number] 63 Unknown [id number] 63 Unknown [id number] 62 Unknown [id number] 63 Unknown [id number] 63 Unknown [id number] 63 Social History Date Type Detail Facility Start: 06-28-2012 Tobacco smoking status IAIS Never smoked tobacco [facility] Start: 03-28-2022 End: 11-09-2022 Alcohol intake Current drinker of alcohol (finding) [facility] Start: 06-28-2012 History SDOH Alcohol Comment occasionally 6 per year [facility] Start: 1960 Sex Assigned At Not on file [facility] Start: 03-18-2022 End: 08-27-2022 Exposure to SARS-CoV-2 (event) Not sure [facility] Start: 09-10-2021 End: 09-10-2021 Tobacco smoking status NHIS Unknown if ever smoked [facility] Start: 1960 Sex Assigned At Female [facility] Start: 06-28-2012 Tobacco use and exposure Smokeless tobacco non-user [facility] Work Phone: Clinical Notes 03-05-2016 to 11-09-2022 Marleen Leon APRN.EXTENSION SERVICE SUPERVISOR - 11/09/2022 7:43 PM ESTPatient Emmy Benavides TEMPLATE REPRODUCTION TECHNICIAN - 08/27/2022 2:46 PM GRACIEDommanuela Rojo APRN.EXTENSION SERVICE SUPERVISOR - 08/27/2022 2:24 PM EST Note Date & Type Note Facility 11-09-2022 Note HNO ID: [id number] Author: Marleen Leon APRN.[facility] Service: ? Author Type: Nurse Practitioner [...] LEEP-Cervix LEFT WRIST CARPAL TUNNEL ONLY 06/11/2016 [facility] PAST SURGICAL HISTORY OF laser surgery in [...] stomach. (Patient not taking: Reported on 08/27/2022) Petfzoalhosyf-Qohkjqpwontnl-YD (TYLENOL COLD HEAD CONGEST SEVR) 5-325-200 mg tab Take 1 Dose by mouth as directed. (Patient not taking: Reported on 06/16/2018 ) FAMILY HISTORY Problem Relation Age of Onset None Mother None Father Diabetes Maternal Grandmother in 60's from [place] None Brother Coronary Artery Disease Brother [place] age 43 other (suicide) Brother 24 Social [...] Discussed expected course of illness Marleen Leon APRN.[facility] 11-09-2022 History of Presen t illness Narrative [...] LEEP-Cervix LEFT WRIST CARPAL TUNNEL ONLY 06/11/2016 [facility] PAST SURGICAL HISTORY OF laser surgery in [...] stomach. (Patient not taking: Reported on 08/27/2022) Gjuiwkwercqij-Bzozcxlcbqhcz-JZ (TYLENOL COLD HEAD CONGEST SEVR) 5-325-200 mg tab Take 1 Dose by mouth as directed. (Patient not taking: Reported on 06/16/2018 ) FAMILY HISTORY Problem Relation Age of Onset None Mother None Father Diabetes Maternal Grandmother in 60's from [place] None Brother Coronary Artery Disease Brother [place] age 43 other (suicide) Brother 24 Social [...] Marleen Leon APRN.CNP documented in this encounter [facility] 11-09-2022 Instructions Marleen Leon APRN.CNP - 11/09/2022 [...] Discussed expected course of illness Marleen Leon APRN.[facility] PATIENT INFO BLADDER INFECTION OVERVIEW [...] have an infection. documented in this encounter [facility] 08-27-2022 Note HNO ID: [id number] Author: Daisha Benavides LPN Service: ? Author [...] assessed by HENRIQUE Rojo. Daisha Benavides LPN [facility] 08-27-2022 Note HNO ID: [id number] Author: Mary Rojo APRN.EXTENSION SERVICE SUPERVISOR Service: ? Author Type: Nurse Practitioner Type: [...] LEEP-Cervix LEFT WRIST CARPAL TUNNEL ONLY 06/11/2016 [facility] PAST SURGICAL HISTORY OF laser surgery in [...] stomach. (Patient not taking: Reported on 08/27/2022) Yfhgkuqtyjruj-Olrmffivtlcdc-LG (TYLENOL COLD HEAD CONGEST SEVR) 5-325-200 mg tab Take 1 Dose by mouth as directed. (Patient not taking: Reported on 06/16/2018 ) FAMILY HISTORY Problem Relation Age of Onset None Mother None Father Diabetes Maternal Grandmother in 60's from [place] None Brother Coronary Artery Disease Brother [place] age 43 other (suicide) Brother 24 Social [...] Patient agreeable to treatment plan. Mary Rojo APRN.[facility] 08-27-2022 History of Presen t illness Narrative [...] LEEP-Cervix LEFT WRIST CARPAL TUNNEL ONLY 06/11/2016 [facility] PAST SURGICAL HISTORY OF laser surgery in [...] stomach. (Patient not taking: Reported on 08/27/2022) Msnqaqcyqabas-Huryxdlbimfci-VG (TYLENOL COLD HEAD CONGEST SEVR) 5-325-200 mg tab Take 1 Dose by mouth as directed. (Patient not taking: Reported on 06/16/2018 ) FAMILY HISTORY Problem Relation Age of Onset None Mother None Father Diabetes Maternal Grandmother in 60's from [place] None Brother Coronary Artery Disease Brother [place] age 43 other (suicide) Brother 24 Social [...] Patient agreeable to treatment plan. Mary Rojo APRN.EXTENSION SERVICE SUPERVISOR documented in this encounter [facility] 03-28-2022 Note HNO ID: [id number] Author: Mary Rojo APRN.LOI Service: ? Author [...] muscle spasm for up to 10 days. Tjnplqkfxumjx-Ljgqhsexjzbgx-FG (TYLENOL COLD HEAD CONGEST SEVR) 5-325-200 mg tab Take 1 Dose by mouth as directed. FAMILY HISTORY Problem Relation Age of Onset - None Mother - None Father - Diabetes Maternal Grandmother in 60's from [place] - None Brother - Coronary Artery Disease Brother [place] age 43 - other (suicide) Brother 24 [...] okay with this care plan. Mary Rojo APRN.[facility] 03-28-2022 Miscellaneous Notes Addended by: MARY ROJO on: 03/28/2022 02:40 PM Modules accepted: Orders documented in this encounter [facility] 03-28-2022 History of Presen t illness Narrative [...] LEEP-Cervix LEFT WRIST CARPAL TUNNEL ONLY 06/11/2016 [facility] PAST SURGICAL HISTORY OF laser surgery in [...] muscle spasm for up to 10 days. Bngateyhuaiyk-Yzdpbwtycljdz-KC (TYLENOL COLD HEAD CONGEST SEVR) 5-325-200 mg tab Take 1 Dose by mouth as directed. FAMILY HISTORY Problem Relation Age of Onset None Mother None Father Diabetes Maternal Grandmother in 60's from [place] None Brother Coronary Artery Disease Brother [place] age 43 other (suicide) Brother 24 Social [...] Mary Rojo APRN.LOI documented in this encounter [facility] 03-05-2016 History of Past i llness Narrative Problem Noted Date Resolved Date Carpal tunnel syndrome, bilateral 03/05/2016 06/16/2018 Spondylosis of lumbar region without myelopathy or radiculopathy 01/02/2016 06/16/2018 Mild cervical dysplasia 06/11/2011 06/28/20 12 Medial epicondylitis 01/23/2011 04/19/2015 Vitamin D deficiency 12/25/2010 04/19/2015 Heart palpitations 10/31/2009 06/04/2016 Graves' disease 10/31/2009 06/04/2016 documented as of this encounter (statuses as of 03/28/2022) [facility] of Past illness Narrative* Problem Noted Date Resolved Date Carpal tunnel syndrome, bilateral 03/05/2016 06/16/2018 Spondylosis of lumbar region without myelopathy or radiculopathy 01/02/2016 06/16/2018 Mild cervical dysplasia 06/11/2011 06/28/20 12 Medial epicondylitis 01/23/2011 04/19/2015 Vitamin D deficiency 12/25/2010 04/19/2015 Heart palpitations 10/31/2009 06/04/2016 Graves' disease 10/31/2009 06/04/2016 documented as of this encounter (statuses as of 08/27/2022) [facility] History of Past illness Narrative* Problem Noted Date Resolved Date Carpal tunnel syndrome, bilateral 03/05/2016 06/16/2018 Spondylosis of lumbar region without myelopathy or radiculopathy 01/02/2016 06/16/2018 Mild cervical dysplasia 06/11/2011 06/28/20 12 Medial epicondylitis 01/23/2011 04/19/2015 Vitamin D deficiency 12/25/2010 04/19/2015 Heart palpitations 10/31/2009 06/04/2016 Graves' disease 10/31/2009 06/04/2016 documented as of this encounter (statuses as of 11/10/2022) [facility] Back spasm- Primary Other symptoms referable to back [facility] noteNo assessment information availableWWilson Health Work Phone: Evaluation note* Diagnosis Impacted cerumen of left ear- Primary Impacted cerumen [facility] Urinary frequency- Primary Gross hematuria documented in this encounter [facility] Advance Directives No Advanced Directives Records Found Advance Directive Response Recorded Date/ Time Advance Directives No May 3:21pm Living Will No September 10, 2 021 12:34pm Power of Wheel Press Clerk No September 10, 2021 12:34pm Advance Directive Response Recorded Date/ Time Advance Directives No May 2:21pm Living Will No September 10, 2 021 11:34am Power of Wheel Press Clerk No September 10, 2021 11:34am Chief Complaint [...] or prosecute any alcohol or drug abuse patient.[facility] the event this information is protected by the Federal Confidentiality of Alcohol and Drug Abuse Patient Records regulations: The Federal rules restrict any use of the information to criminally investigate or prosecute any alcohol or drug abuse patient.[facility] the event this information is protected by the Federal Confidentiality of Alcohol and Drug Abuse Patient Records regulations: The Federal rules restrict any use of the information to criminally investigate or prosecute any alcohol or drug abuse patient.[facility] Reason for Visit (unrecogniz ed section and content) Reason Comments Back Pain back spasms x 3.5 we eks Reason Comments Ear Problem Left ear feels plugg ed Reason Comments Urinary Frequency burning with urinati on and hematuria x 2 hours Care Teams (unrecognized sec tion and content) Locker Room Clerk Relationship Specialty Start Date End Date Ren Bustamante III, MD [place] [address]WARD[address] ADDRESS PCP - General 11/12/03 Locker Room Clerk Relationship Specialty Start Date End Date Tanya Miranda [address] [place] [address] PCP - General Family Medicine 08/27/22 Locker Room Clerk Relationship Specialty Start Date End Date Tanya Miranda MD [address] [place] [address] PCP - General Family Medicine 08/27/22 Team [...] section and content) DATE CREATED AUTHOR 11/12/2022 [facility] DATE CREATED AUTHOR AUTHOR'S ORGANIZ ATION 05/30/2025 [facility] FOR RECORDS PERTAINING TO PATIENTS WHO [...] BE BASED ON THE PRIMARY CLINICAL RECORDS. [facility] [employer] provides no warranty or guarantee of the accuracy or completeness of information in this document.
== END | disposition home or self-care (01) ==
LOC: LAB 07:10
PROVIDERS: PCP Family Medicine; Referring Provider Family Medicine; Visit Provider Family Medicine
DX: E03.2 Hypothyroidism due to medicaments and other exogenous substances (principal)
CPT/HCPCS: 36415; 84443

== ENCOUNTER → 2025-07-19 | Outpatient (CLI) | payer OTHER, SELFPAY | END | disposition home or self-care (01) | PROVIDERS: PCP Family Medicine; Referring Provider Family Medicine; Visit Provider Family Medicine | DX: R19.7 Diarrhea, unspecified (principal) | CPT/HCPCS: 83630; 87177; 87209; 87493; 87506 ==